=== PATIENT | male | born 1950 | race Caucasian/White ===

== ENCOUNTER → 2020-03-27 10:57 | Outpatient (BNVA) | payer OTHER, SELFPAY | PROVIDERS: Family Provider Family Medicine; Visit Provider Nurse Practitioner Family | DX: M25.511 Pain in right shoulder (principal) | CPT/HCPCS: 73030 ==

== ENCOUNTER 2020-08-02 17:19 | Emergency (ER) | payer OTHER, SELFPAY ==
[2020-08-02] VITALS (9 sets, daily range): BP systolic 147–176; BP diastolic 79–101; PULSE 70–78; RESP 16–20; TEMP 36.9–37.2; O2SAT 94–97; BMI 33.2
--- NOTE | 2020-08-02 18:08 | XR_ITS ---
WS: [id number] Exam: XR chest 1V portable [id number] Date/Time of Exam: 08/02/2020 6:11 PM Reason For Exam: cp No priors. The lungs are clear and fully inflated. Normal cardiomediastinal structures. No pleural effusions. De generative changes of both shoulders. XR/XR chest 1V portable [id number] IMPRESSION: 1. No acute cardiopulmonary finding.
--- NOTE | 2020-08-02 18:21 | W.ED.COVID ---
HPI - COVID General: Chief Complaint: Infusion: Covid [facility] Stated Complaint: covid +/phy ref for infusion Time Seen by Provider: 08/02/20 17:51 Source: patient Mode of arrival: ambulatory Limitations: no limitations Triage information: No fever, cough or shortness of breath. Exposure to COVID + person last 14 days History of Present Illness: HPI Narrative: 70-year-old male who states that he had cough along with fever and body aches and tested positive for Covid today. [facility]. He denies any dyspnea currently and is well-appearing here. Denies any worsening improving factors. COVID 19 common symptoms: positive fever(s), non-productive cough and body aches; negative headache(s), throat pain, nausea, vomiting or diarrhea COVID 19 other sytmptoms: negative chest pain COVID Results: No Data to Display Review of Systems Const: Reports: fever(s) and body aches Eyes: Denies: blurry vision or eye discomfort ENMT: Denies: throat pain or dental pain Card: Denies: chest pain Resp: Reports: non-productive cough GI: Denies: abdominal pain, nausea, vomiting or diarrhea : Denies: dysuria Musc: Denies: neck pain or back pain Skin/Breast: Denies: rash Neuro: Denies: headache(s) Psych: Denies: depression Masoud/Lymph: Denies: easy bruising All/Imm: Denies: urticaria PFSH ED PFSH: Social History (Updated 03/27/20 @ 10:16 by Tiffani Wetzel LPN) Smoking and tobacco status: never smoked Alcohol intake: never Physical Exam Const: COMMON NORMALS: no acute distress, patient oriented x3 and healthy appearing HENMT: COMMON NORMALS: normocephalic and atraumatic HEAD & SCALP: normocephalic and atraumatic Eye: COMMON NORMALS: Equal, round and reactive pupils present and EOMs intact bilaterally PUPIL: Yes Equal, round and reactive pupils present Neck/C-Spine: COMMON NORMALS: full ROM and supple Chest: COMMONS NORMALS: normal inspection of the chest and normal palpation of entire chest wall Resp: COMMON NORMALS: normal respiratory effort, No retractions, No use of accessory muscles and clear to auscultation bilaterally AUSCULTATION: clear to auscultation bilaterally Cardio: COMMON NORMALS: regular rate, regular rhythm and No murmurs present (Cardio) RATE: regular rate RHYTHM: regular rhythm GI: COMMON NORMALS: Normal to inspection, nondistended, normoactive bowel sounds present, Soft to palpation, non-tender and no masses PALPATION: Yes Soft to palpation Extremity: COMMON NORMALS: normal to inspection and full ROM Neuro: COMMON NORMALS: patient oriented x3, moves all extremities and no focal motor deficits Psych: COMMON NORMALS: mental status grossly normal, Normal thought process present and cooperative THOUGHT PROCESS: Normal thought process present Skin: COMMON NORMALS: no rashes or lesions noted and no wounds GENERAL SKIN EXAM: no rashes or lesions noted Course Vital Signs: Vital signs: Vital Signs Temperature 98.4 F 08/02/20 20:18 Pulse Rate 77 08/02/20 20:57 Respiratory Rate 16 08/02/20 20:57 Blood Pressure 176/96 08/02/20 20:57 Pulse Oximetry 95 08/02/20 20:57 MDM - COVID MDM Narrative: Medical decision making narrative: Joseph presents here with Covid does meet criteria for bam infusion. His chest x-ray here is negative and he is not in respiratory distress. Patient given the bam infusion and is stable for discharge. He is to return if worsening. He understands and agrees to plan. COVID Results: No Data to Display Monoclonal Antibody Treatments Inclusion/Exclusion Criteria + direct Sars-Cov-2 test less than 7-10 days ago age >/= 65 Discharge Plan Discharge Patient Disposition: Home Clinical Impression: COVID-19 Condition: Stable Prescriptions: No Action tamsulosin 0.4 mg capsule 0.4 mg PO DAILY@1999 RF: 0 valproic acid 250 mg capsule 250 mg PO BID RF: 0 lisinopril 40 mg tablet 40 mg PO DAILY@1999 RF: 0 cetirizine 10 mg tablet 5 mg PO DAILY PRN (Reason: Allergy Symptoms) RF: 0 finasteride 5 mg tablet 5 mg PO DAILY@1999 RF: 0 montelukast 10 mg tablet 10 mg PO DAILY@1999 RF: 0 atorvastatin 40 mg tablet 40 mg PO DAILY@1999 RF: 0 Discharge Orders: Discharge ED (Routine); Ordered 08/02/20 Ordered By: Shashank Palmer Referrals: Mirza Cottrell [Primary Care Provider] - 1-3 days Discharge Diet: Advance as tolerated Discharge Activity: Resume usual activity Patient Instructions: Upper Respiratory Infection (ED) Coding Level of Care Code ED Navigation Teacher for Temi Fwd Exam Comprehensive
--- NOTE | 2020-08-07 16:01 | DCPLANNER ---
Addendum entered by Mary Thibodeaux 08/14/20 15:58: educational manager called to check on patient 10 days after receiving the infusion. Patient stated that he was doing just fine, and that he has not been admitted to hospital. Addendum entered by Mary Thibodeaux 08/09/20 15:57: educational manager called to check on patient after receiving the BAM infusion. Patient stated that he is feeling good, no fever, no cough, no shortness of breath. Patient stated that he is feeling good. Original Note: educational manager had message that patient received the BAM infusion. educational manager called to check on patient after receiving the BAM. Patient stated that he tolorated the infusion well. That before the infusion that he had a really bad headache, a little cough, and was short of breath. After the infusion, he is feeling great, that he does not have a cough, he is no longer short of breath. [facility] and that [facility] has [facility]ologist in [facility] that he sees and has been in contact with him. Patient stated that he would make follow ups as needed.
== END 2020-08-02 21:13 | disposition home or self-care (01) ==
PROVIDERS: Emergency Provider Emergency Medicine; PCP Family Medicine
DX: U07.1 COVID-19 (principal)
CPT/HCPCS: 12345; 71045; 96365; 99281; 99283; J7050

== ENCOUNTER 2021-01-30 08:04 | Outpatient (CLI) | payer OTHER, SELFPAY ==
--- NOTE | 2021-01-30 08:12 | CT_ITS ---
WS: [id number] CT ABDOMEN AND PELVIS WITH CONTRAST HISTORY: ABDOMINAL SWELLING /PAIN TECHNIQUE: Imaging performed of the abdomen and pelvis with IV contrast. Single phase imaging of the abdomen. Coronal and sagittal reformats are submitted. All CT scans at [facility] use at least one of these dose optimization techniques: automated exposure control; mA and/or kV adjustment per patient size (includes targeted exams where dose is matched to clinical indication); or iterativ e reconstruction. IV CONTRAST: Visipaque 320; 95 mL IV. Oral contrast: Yes. DLP: 894.87 mGy-cm. COMPARISON: None available. Lower thorax: Lung bases are clear. Heart is normal size. No hiatal hernia. Liver/biliary system: Normal size with no intrahepatic dilatation. Gallbladder: Status post cholecystectomy. Pancreas: Normal size pancreas and pancreatic duct. No adjacent inflammation. Spleen: Prior splenectomy. There is a rounded mass in the LEFT upper quadrant measuring 3.8 cm in brissa meter. This is probably a splenule. Adrenal glands: Normal RIGHT adrenal gland. LEFT adrenal gland is not visualized and may have been florez rgically removed. Right kidney: Nonobstructing 2 mm calcification in the mid kidney. Left kidney: Prior nephrectomy. No recurrent mass at the renal bed. Aorta: Mild atherosclerosis with no aneurysm. Lymphadenopathy: There are a few small mesenteric lymph nodes. There are indeterminate lymph nodes in the pelvis. Largest lymph node measures 12 mm along the RIGHT external iliac artery. There are addit ional smaller lymph nodes bilaterally along the iliac chains. No prior studies to evaluate for stabil ity or progression. Free fluid: None. GI tract: The appendix is normal. No GI tract obstruction. Numerous diverticula in the sigmoid colon . No evidence for acute diverticulitis. Abdominal wall: There are numerous surgical clips remaining in the anterior abdominal wall at the lev el of the liver and also along the LEFT anterior abdominal wall and lateral. No recurrent mass or sof t tissue abnormality is noted. There is some very mild soft tissue thickening. No recurrent mass, abs cess or hernia. Pelvis: No free fluid in the pelvis. Urinary bladder is small caliber. Bones: Osteopenia. Moderate spondylosis in the lumbar spine. No osteoblastic or osteolytic bone disea se. CT/CT abdomen pelvis w con* [id number] IMPRESSION: 1. Status post splenectomy and LEFT nephrectomy. 2. Postsurgical clips are noted along the anterior and LEFT lateral abdominal wall. No recurrent mass identified. 3. Indeterminate pelvic lymph nodes. Metastatic disease is a possibility. The largest lymph node along the RIGHT external iliac artery is 12 mm. No prior bunny dies for comparison to evaluate for progression or stability. 4. Sigmoid diverticulosis without acute diverticulitis.
[2021-01-30] MEDS: iohexol 300 mg/mL 50 mL Btl PO (08:31)
[2021-01-30] MEDS: iodixanol 320 mg/mL 100mL Btl IV (09:59)
== END 2021-01-30 08:05 | disposition home or self-care (01) ==
LOC: RADWPI 08:05
PROVIDERS: PCP Family Medicine; Visit Provider Family Medicine
DX: R19.00 Intra-abdominal and pelvic swelling, mass and lump, unspecified site (principal); R10.9 Unspecified abdominal pain; K57.30 Diverticulosis of large intestine without perforation or abscess without bleeding; Z90.81 Acquired absence of spleen; Z90.5 Acquired absence of kidney
CPT/HCPCS: 74177; Q9967

== ENCOUNTER 2022-11-26 11:52 | Emergency (ER) | payer OTHER, SELFPAY ==
[2022-11-26 11:56] VITALS: BP 111/81; PULSE 87; RESP 16; TEMP 36.7; O2SAT 100
--- NOTE | 2022-11-26 12:04 | W.ED.WEAKNES ---
HPI - Weakness General: Chief complaint: Weakness Stated complaint: HYPOTENSION Time Seen by Provider: 11/26/22 11:53 Source: patient and EMS Mode of arrival: EMS Limitations: no limitations History of Present Illness: This patient was transported to emergency department from the local [place] clinic. History is obtained both from the EMS providers as well as the patient. He states that he was at the [facility] today for routine visit and apparently they noted his blood pressure seem to be low at the time of his intake and they called EMS. EMS arrived and assessed him and transported him to the emergency department. They state while he was in their care his blood pressure was never less than 100 systolic. The report they received from the [place] clinic was that his blood pressure was in the 60 systolic range. Patient states he has been feeling more tired and fatigued over the past 2 to 3 weeks but just had a procedure done at [facility] on 29 October. He had his eye cystectomy as well as a prostatectomy with a ileal ureteral conduit placed because of an controlled bladder cancer. He states he also had a right great toe that had an area of darkness to it that at the time of his surgery was attributed to likely either pressure and/or some other intraoperative vascular compromise. He states that area has significantly improved since he has been home and it does not cause him any pain or discomfort. He has no history of vascular disease as he is aware. He states that he has been eating fairly regularly he is not having a great appetite but he states that he does drink fluids and eat on a daily basis. He states he is urine output is been good and his stools have been normal for him. He denies any fevers chills chest pain etc. Has no history of cardiovascular disease. He takes his usual medications and is took taken them all this morning without difficulty. He states he did drink some fluids and eat a small amount of Ensure this morning. He denies any known exposure to infectious disease. His only other abdominal surgery was a cholecystectomy. MD Complaint: generalized weakness and lack of energy Associated symptoms: Denies chest pain, chills, melena, easy bruising, fever(s), headache(s), nausea, syncope or vomiting Review of Systems Const: Reports: fatigue; Denies: fever(s), chills or body aches Eyes: Denies: change in vision ENMT: Denies: throat pain, odynophagia or nasal congestion Card: Denies: chest pain, palpitations, irregular heart rhythm, syncope or pre-syncope Resp: Denies: dyspnea, productive cough or non-productive cough GI: Denies: abdominal pain, nausea, vomiting, hematemesis, hematochezia or melena Musc: Denies: neck pain, back pain, extremity pain or extremity swelling Skin/Breast: Reports: non-healing lesions; Denies: rash, pruritus, erythema or photosensitivity Neuro: Denies: headache(s), numbness in extremities or weakness in extremities Masoud/Lymph: Denies: easy bruising or easy bleeding PFSH ED PFSH: Social History (Updated 03/27/20 @ 10:16 by Tiffani Wetzel LPN) Smoking and tobacco status: never smoked Alcohol intake: never Substance/Drug Use: never Physical Exam Narrative: EXAM NARRATIVE: The patient oriented makes good eye contact speech is goal-directed. He answers questions appropriately. Const: COMMON NORMALS: no acute distress, average body habitus, patient oriented x3, healthy appearing and alert ORIENTATION/CONSCIOUSNESS: Yes awake HENMT: COMMON NORMALS: normocephalic, atraumatic, Normal nasal mucous membranes and turbinates present, moist oral mucous membranes and oropharynx normal HEAD & SCALP: normocephalic and atraumatic NOSE: Normal nasal mucous membranes and turbinates present Eye: COMMON NORMALS: Equal, round and reactive pupils present, EOMs intact bilaterally and conjunctivae normal CONJUNCTIVA: Yes conjunctivae normal PUPIL: Yes Equal, round and reactive pupils present Neck/C-Spine: COMMON NORMALS: full ROM, no lymphadenopathy, no JVD, Thyroid normal and No carotid bruits THYROID: Thyroid normal Chest: COMMONS NORMALS: normal inspection of the chest and normal palpation of entire chest wall Resp: COMMON NORMALS: normal respiratory effort, No retractions, No use of accessory muscles and clear to auscultation bilaterally EFFORT & INSPECTION: Yes able to speak in complete sentences AUSCULTATION: clear to auscultation bilaterally Cardio: COMMON NORMALS: no JVD, regular rate, regular rhythm, No murmurs present (Cardio) and Peripheral pulses 2+ throughout RATE: regular rate RHYTHM: regular rhythm PERIPHERAL PULSES: Peripheral pulses 2+ throughout GI: COMMON NORMALS: Normal to inspection, nondistended, normoactive bowel sounds present, Soft to palpation and non-tender PALPATION: Yes Soft to palpation OTHER: He has a stoma visible through the skin which appears to be mature without any redness drainage etc. It is draining clear yellow urine into a collection bag. : COMMON NORMALS: Yes no CVA tenderness BLADDER/KIDNEY EXAM: Yes no CVA tenderness Back/Pelvis: COMMON NORMALS: no CVA tenderness, thoracic and lumbar spine normal to inspection and no thoracic nor lumbar tenderness Extremity: COMMON NORMALS: normal to inspection, no joint enlargement, no calf tenderness and no pedal edema Neuro: KOMAL COMA SCALE: document GCS findings COMMON NORMALS: patient oriented x3, moves all extremities, no focal motor deficits and no sensory deficits noted SENSORIUM/ORIENTATION: Yes alert Psych: COMMON NORMALS: mental status grossly normal Skin: NARRATIVE SKIN EXAM: He has an area measuring approximately 2 cm x 1 cm at the tip of his right great toe which is somewhat darkened in appearance there is no surrounding erythema. There is no drainage. There is no proximal redness. Course Reevaluation(s): Reevaluation #1: Patient clinically stable vital signs are reassuring. Family is now present I discussed current findings with the patient and family members including his spouse. They confirm that his fluid intake is not been optimal. Time: 15:04 Reevaluation #2: Patient is drinking fluids well. His blood pressure has been very reassuring the entire emergency department stay. Again no findings today that would suggest a ongoing emergency medical condition such as sepsis etc. He has not displayed any signs of hypotension, other concerning findings while in the emergency department. His case was reviewed with his consulting urologist in [place] at [facility] who agreed with no aggressive treatment of urinary sediment unless he displayed signs of infection. I reviewed all the findings with the patient as well as with his family. I adamantly reinforced the need for continued oral hydration at home. He is stable at this time to be discharged home with good return return precautions. All questions were answered and they were appreciative of care. Time: 16:38 Consultations: Consultation #1: Discussed with the urology consultants at [facility] who are completed his procedure last month. We reviewed his current findings. They supported the notion that his urine sediment will always have significant findings and that he should not be treated for the urinalysis but only if he displays any systemic symptoms. Time: 16:04 Vital Signs: Vital signs: Vital Signs Temperature 98.0 F 11/26/22 11:56 Pulse Rate 83 11/26/22 16:32 Respiratory Rate 16 11/26/22 11:56 Blood Pressure 130/79 11/26/22 16:32 Pulse Oximetry 99 11/26/22 16:32 Oxygen Delivery Me thod Room Air 11/26/22 16:32 MDM - Weakness Medical Decision Making This patient presented to the emergency department because of concerns about low blood pressure found at the [place] clinic. Subsequent readings by EMS as well as in the emergency department here did not confirm any evidence of hypotension. He was evaluated clinically and found to have no clinical stigmata suggestive of worrisome clinical condition as evidenced by lack of temperature elevation, tachycardia, hypertension or other clinical findings. Laboratories were obtained which did reveal evidence of volume depletion. He subsequently received IV hydration and oral hydration while in the emergency department. His urinary sediment was abnormal and after consulting with urology that was confirmed that this was not indicative of of a primary infection unless it was associated with other clinical findings. He was remained in an observatory status in the emergency department for period of time in which his work-up and results were undertaken and reviewed. He continued to orally hydrate as well. He is stable at this time without any evidence of an ongoing emergency medical condition is certainly suitable for discharge. We also reviewed return precautions. Medical Records I reviewed the patient's medical records. Lab Data I reviewed the patient's lab results. 11/26/22 12:04 11/26/22 12:04 Laboratory Results WBC 13.0 10^3/uL (4.0-10.0) H 11/26/22 12:04 RBC 4.06 10^6/uL (4.1-5.3) L 11/26/22 12:04 Hgb 12.4 g/dL (11.7-16.6) 11/26/22 12:04 Hct 39.0 % (42.0-52.0) L 11/26/22 12:04 MCV 96.1 fl (80-94) H 11/26/22 12:04 MCH 30.5 pg (28.0-34.0) 11/26/22 12:04 MCHC 31.8 g/dL (30.0-36.0) 11/26/22 12:04 RDW 14.2 % (12.1-15.1) 11/26/22 12:04 Plt Count 481 10^3/cmm (130-400) H 11/26/22 12:04 MPV 9.9 fL (7.4-10.4) 11/26/22 12:04 Neut % (Auto) 43.9 % 11/26/22 12:04 Lymph % (Auto) 41.5 % 11/26/22 12:04 [place] % (Auto) 10.7 % 11/26/22 12:04 Eos % (Auto) 1.8 % 11/26/22 12:04 Baso % (Auto) 0.5 % 11/26/22 12:04 Neut # (Auto) 5.69 10^3/uL (1.8-7.7) 11/26/22 12:04 Lymph # (Auto) 5.4 10^3/uL (0.8-4.8) H 11/26/22 12:04 [place] # (Auto) 1.4 10^3/uL (0.2-0.9) H 11/26/22 12:04 Eos # (Auto) 0.2 10^3/uL (0.0-0.8) 11/26/22 12:04 Baso # (Auto) 0.1 10^3/uL (0.0-0.1) 11/26/22 12:04 Nucleated RBC % (auto) 0 % 11/26/22 12:04 Nucleated RBCs # 0.0 /100WBC 11/26/22 12:04 Sodium 138 mmol/L (136-145) 11/26/22 12:04 Potassium 4.4 mmol/L (3.5-5.1) 11/26/22 12:04 Chloride 107 mmol/L (98-107) 11/26/22 12:04 Carbon Dioxide 16 mmol/L (22-29) L 11/26/22 12:04 Anion Gap 19.4 (5-19) H 11/26/22 12:04 BUN 59 mg/dL (8-23) H 11/26/22 12:04 Creatinine 1.2 mg/dL (0.7-1.2) 11/26/22 12:04 GFR Calculation Not Reportable 11/26/22 12:04 Glucose 103 mg/dL (65-115) 11/26/22 12:04 Calculated Osmolality 303 mOsm/kg (285-295) H 11/26/22 12:04 Calcium 9.6 mg/dL (8.5-10.5) 11/26/22 12:04 Total Bilirubin 0.2 mg/dL (0.15-1.2) 11/26/22 12:04 AST 22 U/L (0-40) 11/26/22 12:04 ALT 22 U/L (0-41) 11/26/22 12:04 Alkaline Phosphatase 121 U/L (40-130) 11/26/22 12:04 Total Protein 8.8 g/dL (6.6-8.7) H 11/26/22 12:04 Albumin 3.5 g/dL (3.5-5.2) 11/26/22 12:04 Globulin 5.3 g/dL (1.3-4.6) H 11/26/22 12:04 Urine Color Yellow (Yellow) 11/26/22 12:30 Urine Appearance Sl hazy (CLEAR) A 11/26/22 12:30 Urine pH 7 (5-7) 11/26/22 12:30 Ur Specific [place] 1.005 (1.005-1.030) 11/26/22 12:30 Urine Protein Trace (Negative) 11/26/22 12:30 Urine Glucose (UA) Norm (Normal) 11/26/22 12:30 Urine Ketones Negative (Negative) 11/26/22 12:30 Urine Blood 2+ (Negative) H 11/26/22 12:30 Urine Nitrate Negative (Negative) 11/26/22 12:30 Urine Bilirubin Neg (Negative) 11/26/22 12:30 Urine Urobilinogen Neg mg/dL (Negative) 11/26/22 12:30 Ur Leukocyte Esterase 2+ (Negative) H 11/26/22 12:30 Urine RBC 5-10 /hpf (0-2) H 11/26/22 12:30 Urine WBC 80-100 /hpf (0-5) H 11/26/22 12:30 Ur Squamous Epith Cells 0-4 /hpf (0-5) H 11/26/22 12:30 Amorphous Sediment Not Reportable 11/26/22 12:30 Urine Bacteria 2+ /hpf (NONE) H 11/26/22 12:30 Urine Mucus Trace /hpf 11/26/22 12:30 Urine Yeast 3+ /hpf H 11/26/22 12:30 EKG Data EKG 1: I personally reviewed and interpreted this EKG as follows: Interpretation: Contemporaneous review of the resting EKG reveals ventricular rate of 83 bpm. Normal CO interval, QRS duration, axis. No acute ST-T wave changes noted. Discharge Plan Discharge Patient Disposition: Home Clinical Impression: Volume depletion, Status post ileal conduit Condition: Stable Prescriptions: No Action tamsulosin 0.4 mg capsule 0.4 mg PO DAILY@1999 valproic acid 250 mg capsule 500 mg PO BID lisinopril 40 mg tablet 20 mg PO DAILY@1999 cetirizine 10 mg tablet 5 mg PO DAILY PRN (Reason: Allergy Symptoms) montelukast 10 mg tablet 10 mg PO DAILY@1999 atorvastatin 40 mg tablet 40 mg PO DAILY@1999 Depakote ER 250 mg Tablet Extended Release 24 Hr 250 mg PO BID [id number] mg Capsule 1 cap PO Q6H PRN (Reason: Migraine Headache) Discharge Orders: Discharge ED (Routine); Ordered 11/26/22 Ordered By: Pankaj Jordan Referrals: Mirza Cottrell [Primary Care Provider] - Discharge Diet: Advance as tolerated Discharge Activity: Increase activity as tolerated Patient Instructions: Opioid Safety, Pain Management Activity Restrictions/Additional Instructions: As we discussed you had evidence that you had not been drinking enough water. It is important you drink at least 2 quarts of water a day in addition to your other fluid intake. Continue with increasing and advancing her diet. We recommend high-calorie protein shakes and other quality forms of calories. If you develop fever, inability to eat and drink, lightheadedness, low blood pressure or other concerning symptoms of any kind return to this emergency department immediately. Otherwise follow-up with your urologist in [place] as previously scheduled. Coding Level of Care Code ED Equipment Tester for Temi Massey
--- NOTE | 2022-11-26 12:17 | ECG_ITS ---
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 Measurements Intervals [place] Rate: 83 P: 22 NE: 164 QRS: 32 QRSD: 91 T: 50 QT: 326 QTc: 385 Interpretive Statements SINUS RHYTHM No previous ECG available for comparison Electronically Signed On 11-26-2022 16:27:53 CDT by Cal Ricci M.D. [email or web address]
[2022-11-26 12:20] LABS: Basophils # 0.1 10^3/uL (0.0-0.1); Basophils % 0.5 %; Eosinophils # 0.2 10^3/uL (0.0-0.8); Eosinophils % 1.8 %; Hemoglobin 12.4 g/dL (11.7-16.6); Lymphocytes # 5.4 10^3/uL (0.8-4.8); Lymphocytes % 41.5 %; Mean Corpuscular HGB Conc 31.8 g/dL (30.0-36.0); Mean Corpuscular Hemoglobin 30.5 pg (28.0-34.0); Mean Corpuscular Volume 96.1 fl (80-94); Mean Platelet Volume 9.9 fL (7.4-10.4); Monocytes # 1.4 10^3/uL (0.2-0.9); Monocytes % 10.7 %; Neutrophils # 5.69 10^3/uL (1.8-7.7); Neutrophils % 43.9 %; Nucleated Red Blood Cells % 0 %; Platelet Count 481 10^3/cmm (130-400); Red Blood Count 4.06 10^6/uL (4.1-5.3); Red Cell Distribution Width 14.2 % (12.1-15.1)
[2022-11-26 12:41] LABS: Alanine Aminotransferase 22 U/L (0-41); Albumin Level 3.5 g/dL (3.5-5.2); Alkaline Phosphatase 121 U/L (40-130); Anion Gap 19.4 (5-19); Aspartate Amino Transferase 22 U/L (0-40); Blood Urea Nitrogen 59 mg/dL (8-23); Calcium 9.6 mg/dL (8.5-10.5); Carbon Dioxide 16 mmol/L (22-29); Chloride 107 mmol/L (98-107); Globulin 5.3 g/dL (1.3-4.6); Glucose 103 mg/dL (65-115); Osmolality Calculated 303 mOsm/kg (285-295); Potassium 4.4 mmol/L (3.5-5.1); Sodium 138 mmol/L (136-145); Total Bilirubin 0.2 mg/dL (0.15-1.2); Total Protein 8.8 g/dL (6.6-8.7)
[2022-11-26 13:02] VITALS: BP 113/81; PULSE 82; O2SAT 98
[2022-11-26 13:03] LABS: Add Urine Microscopic? YES; Bilirubin Urine Neg (Negative); Blood Urine 2+ (Negative); Glucose Urine UA Norm (Normal); Ketones Urine Negative (Negative); Leukocyte Esterase Urine 2+ (Negative); Nitrate Urine Negative (Negative); Protein Urine Trace (Negative); Specific Gravity, Urine 1.005 (1.005-1.030); Urine Appearance SL Hazy (CLEAR); Urine Color Yellow (Yellow); Urobilinogen Urine Neg (Negative); pH Urine 7 (5-7)
[2022-11-26 13:04] LABS: Bacteria Urine 2+ /hpf; Mucus Urine TRACE /hpf; Squamous Epithelial Cell Urine 0-4 /hpf (0-5); WBC Urine 80-100 /hpf (0-5)
[2022-11-26 13:13] LABS: Slide Review Slide Review Perform
[2022-11-26] MEDS: sodium chloride 0.9% 1,000 ML 999 ML IV (14:23)
[2022-11-26] MEDS: cefTRIAXone 2,000 MG in sodium chloride 0.9% (plus) 50 ML 100 MG IV (14:24)
[2022-11-26 14:33] VITALS: BP 125/75; PULSE 76; O2SAT 99
[2022-11-26 16:32] VITALS: BP 130/79; PULSE 83; O2SAT 99
== END 2022-11-26 16:54 | disposition home or self-care (01) ==
PROVIDERS: Emergency Provider Emergency Medicine; PCP Family Medicine
DX: E86.9 Volume depletion, unspecified (principal); Z98.890 Other specified postprocedural states
CPT/HCPCS: 36415; 80053; 81001; 85025; 93005; 96374; 99284; J0696; J7030

== ENCOUNTER → 2023-06-05 12:23 | Outpatient (BNVA) | payer OTHER, SELFPAY | PROVIDERS: PCP Family Medicine; Referring Provider Family Medicine; Visit Provider Podiatrist Foot & Ankle Surgery | DX: L60.8 Other nail disorders (principal) | CPT/HCPCS: 99203 ==

== ENCOUNTER → 2023-07-09 08:36 | Outpatient (BNVA) | payer OTHER, SELFPAY | PROVIDERS: PCP Family Medicine; Visit Provider Podiatrist Foot & Ankle Surgery | DX: L60.8 Other nail disorders (principal); L60.0 Ingrowing nail | CPT/HCPCS: 11750 ==

== ENCOUNTER → 2023-07-23 08:32 | Outpatient (BNVA) | payer OTHER, SELFPAY | PROVIDERS: PCP Family Medicine; Referring Provider Family Medicine; Visit Provider Podiatrist Foot & Ankle Surgery | DX: L60.0 Ingrowing nail (principal) | CPT/HCPCS: 99213 ==

== ENCOUNTER 2025-03-10 10:59 | Observation (INO) | payer OTHER, SELFPAY ==
--- OUTSIDE RECORDS SUMMARY | 2024-01-23 04:00 | XMS_ITS ---
Author Organization [facility] Address [address] [place] [address] Care Team Providers Care Day Porter Name Role Phone Berny GONSALEZ Primary Care Provider Unavailab Rip Dinh Unavailable [phone] Bandar Acosta Unavailable Unavailable Migration, Provider Unavailable Unavailable REASON FOR VISIT EMR-Adriel Encounters Encounter Location Date Provider Diagnosis Migrated_Facility 0 0 01/23/2024 Provider Migration Plan Of Treatment Medication Medication Name Sig Start Date Stop Date Notes Sulfamethoxazole-Trimethopri m 800-160 MG Tablet Oral 01/21/2022 01/22/2022 diazePAM 10 MG Tablet Oral 06/07/2020 06/08/2020 Nitrofurantoin Macrocrystal 100 MG Capsule Oral 04/02/2021 04/03/2021 solifenacin succinate 10 MG Oral Tablet [Vesicare] ORAL 05/15/2021 06/14/2021 *Reorder from [facility] for eRx and Interaction Alerts* Finasteride 5 MG Tablet Oral 04/26/2021 Ciprofloxacin HCl 500 MG Tablet Oral 01/04/2019 06/0 01/2019 Atorvastatin Calcium 10 MG Tablet Oral 04/26/2021 Progress Notes * Joseph ROTH DDOB:[birth year] (75 yo M)Acc No.[id number]:01/23/2024 Patient: Joseph KEANE :1950 A ge:73 Y S ex:Male Address:[address] [place] [address] [address], [place] [address] * Refills Stop Atorvastatin Calcium Tablet, 10 MG, Oral Stop Ciprofloxacin HCl Tablet, 500 MG, Oral Stop diazePAM Tablet, 10 MG, Oral Stop Finasteride Tablet, 5 MG, Oral Stop Nitrofurantoin Macrocrystal Capsule, 100 MG, Oral Stop Nitrofurantoin Macrocrystal Capsule, 100 MG, Oral Stop Nitrofurantoin Macrocrystal Capsule, 100 MG, Oral Stop Sulfamethoxazole-Trimethoprim Tablet, 800-160 MG, Oral Stop Sulfamethoxazole-Trimethoprim Tablet, 800-160 MG, Oral Stop Sulfamethoxazole-Trimethoprim Tablet, 800-160 MG, Oral Stop Sulfamethoxazole-Trimethoprim Tablet, 800-160 MG, Oral Stop Sulfamethoxazole-Trimethoprim Tablet, 800-160 MG, Oral Stop Sulfamethoxazole-Trimethoprim Tablet, 800-160 MG, Oral Stop Sulfamethoxazole-Trimethoprim Tablet, 800-160 MG, Oral Stop solifenacin succinate 10 MG Oral Tablet [Vesicare], ORAL Subjective: * Chief Complaints: * E Jason * * Date:
--- OUTSIDE RECORDS SUMMARY | 2024-01-24 04:00 | XMS_ITS ---
Author Organization [facility] Address [address] [place] [address] Care Team Providers Care Clinical Research Tech Name Role Phone Berny GONSALEZ Primary Care Provider Unavailab Rip Dinh Unavailable [phone] Bandar Acosta Unavailable Unavailable Migration, Provider Unavailable Unavailable Allergies Allergen (clinical drug ingredient) Drug/Non Drug Allergy documented on EMR Reaction Allergy Type Onset Date Status bee pollen Bee Pollen Unknown Drug Allergy 04/26/2021 acti ve simvastatin Simvastatin Unknown Drug Allergy 04/26/2021 ac tive codeine Codeine Unknown Drug Allergy Active morphine Morphine Unknown Drug Allergy Active REASON FOR VISIT EMR-Adriel Medications Medication SIG (Take, Route, Frequency, Duration) Notes Start Date End Date Status fluticasone furoate 0.0275 MG/ACTUAT Metered Dose Nasal [place] *Reorder from [facility] for eRx and Interaction Alerts* 04/26/2021 Active 1 ML Epinephrine 1 MG/ML Injection *Reorder from [facility] for eRx and Interaction Alerts* 04/26/2021 Active traMADol HCl 50 MG Tablet Oral 05/21/2021 05/28/2021 Active Tamsulosin HCl 0.4 MG Capsule Oral 04/26/2021 Active Montelukast Sodium 4 MG Tablet Chewable Oral 04/26/2021 Active solifenacin succinate 10 MG Oral Tablet [Vesicare] ORAL *Reorder from [facility] for eRx and Interaction Alerts* 05/21/2021 06/20/2021 Active Valproic Acid 250 MG Oral Capsule ORAL *Reorder from [facility] for eRx and Interaction Alerts* 04/26/2021 Active Acetaminophen 325 MG / butalbital 50 MG / Caffeine 40 MG Oral Tablet ORAL *Reorder from [facility] for eRx and Interaction Alerts* 04/26/2021 Active Lisinopril 40 MG Oral Tablet ORAL *Reorder from [facility] for eRx and Interaction Alerts* 04/26/2021 Active Docusate Sodium 100 MG Oral Tablet ORAL *Reorder from [facility] for eRx and Interaction Alerts* 05/21/2021 Active Social History Social History Additional Details Category Social Info Options Details Migrated Social History Migrated Social History History of tobacco use : , Smoking Status : Never used tobacco Encounters Encounter Location Date Provider Diagnosis Migrated_Facility 0 0 01/24/2024 Provider Migration Plan Of Treatment No Information Progress Notes * Joseph ROTH DDOB:[birth year] (75 yo M)Acc No.[id number]:01/24/2024 Patient: Joseph KEANE :1950 A ge:73 Y S ex:Male Address:[address] [place] [id number] Subjective: * Chief Complaints: * E MR-Adriel * Social History: M igrated Social History: M igrated Social History: History of tobacco use : , Smoking Status : Never used tobacco. * Medications: T akingMontelukast Sodium 4 MG Tablet Chewable Oral Tamsulosin HCl 0.4 MG Capsule Oral traMADol HCl 50 MG Tablet Oral , stop date ML Epinephrine 1 MG/ML Injection , Notes to Pharmacist: *Reorder from [facility] for eRx and Interaction Alerts*fluticasone furoate 0.0275 MG/ACTUAT Metered Dose Nasal [place] , Notes to Pharmacist: *Reorder from [facility] for eRx and Interaction Alerts*Acetaminophen 325 MG / butalbital 50 MG / Caffeine 40 MG Oral Tablet ORAL , Notes to Pharmacist: *Reorder from [facility] for eRx and Interaction Alerts*Valproic Acid 250 MG Oral Capsule ORAL , Notes to Pharmacist: *Reorder from [facility] for eRx and Interaction Alerts*Docusate Sodium 100 MG Oral Tablet ORAL , Notes to Pharmacist: *Reorder from [facility] for eRx and Interaction Alerts*Lisinopril 40 MG Oral Tablet ORAL , Notes to Pharmacist: *Reorder from [facility] for eRx and Interaction Alerts*solifenacin succinate 10 MG Oral Tablet [Vesicare] ORAL , stop date 06/20/2021, Notes to Pharmacist: *Reorder from [facility] for eRx and Interaction Alerts*Taking Montelukast Sodium 4 MG Tablet Chewable Oral Taking Tamsulosin HCl 0.4 MG Capsule Oral Taking traMADol HCl 50 MG Tablet Oral , stop date 05/28/2021Taking 1 ML Epinephrine 1 MG/ML Injection , Notes to Pharmacist: *Reorder from [facility] for eRx and Interaction Alerts*Taking fluticasone furoate 0.0275 MG/ACTUAT Metered Dose Nasal [place] , Notes to Pharmacist: *Reorder from [facility] for eRx and Interaction Alerts*Taking Acetaminophen 325 MG / butalbital 50 MG / Caffeine 40 MG Oral Tablet ORAL , Notes to Pharmacist: *Reorder from [facility] for eRx and Interaction Alerts*Taking Valproic Acid 250 MG Oral Capsule ORAL , Notes to Pharmacist: *Reorder from [facility] for eRx and Interaction Alerts*Taking Docusate Sodium 100 MG Oral Tablet ORAL , Notes to Pharmacist: *Reorder from [facility] for eRx and Interaction Alerts*Taking Lisinopril 40 MG Oral Tablet ORAL , Notes to Pharmacist: *Reorder from [facility] for eRx and Interaction Alerts*Taking solifenacin succinate 10 MG Oral Tablet [Vesicare] ORAL , stop date 06/20/2021, Notes to Pharmacist: *Reorder from [facility] for eRx and Interaction Alerts* * Allergies: S imvastatin: Allergy - Onset Date 1Bee Pollen: Allergy - Onset Date 1Codeine: AllergyMorphine: Allergy * * Date:
--- OUTSIDE RECORDS SUMMARY | 2024-03-17 04:00 | XMS_ITS | Encounter Summary ---
Author Name [facility] [facility] [place] [facility] [place] [facility] [place] Address [address] [place] [address] Care Team Providers Care Workplace Rehabilitation Officer Name Role Phone TIFFANI SOTELO Primary Care Provider Unavailabl e Insurance Providers: All historical and current Section Date Range: From patient's date of to the date document was created. This section includes the names of all active insurance providers for the patient. Insurance Provider Type of Coverage Plan Name Start of Policy Coverage End of Policy Coverage Group Number Member ID Insurance Provider's Telephone Number Policy Tadeo's Name Patient's Relationship to Policy Tadeo MEDICARE (WNR) MEDICARE (M) PART A Jan 31, 2015 PART A [id number] [phone] SHEREE NORMAN PATIENT MEDICARE (WNR) MEDICARE (M) PART A Jan 31, 2015 PART A [id number] SHEREE NORMAN PATIENT Selected Encounter This section includes the information on record at [place] for the Encounter. Date/Time Encounter Type Encounter Description Reason Provider Source Mar 17, 2024 09:00 AM OFFICE O/P EST MOD 30 MIN PRIMARY CARE/MEDICINE ICD-10-CM I10 Essential (primary) hypertension GENESIS SOTELO IHNorma Encounter Template Text not used by [place] Assessments - Encounter Diagnoses This section includes the primary and secondary diagnoses documented for the Encounter. Date/Time Primary/Secondary Diagnosis Diagnosis Name Provider Source Mar 17, 2024 10:02 AM PRIMARY Essential (primary) hypertension [facility] Mar 17, 2024 10:02 AM SECONDARY Allergic rhinitis, unspecified [facility] Mar 17, 2024 10:02 AM SECONDARY Bee allergy status [facility] Mar 17, 2024 10:02 AM SECONDARY Benign prostatic hyperplasia with lower urinary tract symp [facility] Mar 17, 2024 10:02 AM SECONDARY Carcinoma in situ of bladder [facility] Mar 17, 2024 10:02 AM SECONDARY Chronic cluster headache, not intractable [facility] Mar 17, 2024 10:02 AM SECONDARY Hyperlipidemia, unspecified [facility] Mar 17, 2024 10:02 AM SECONDARY Low back pain, unspecified [facility] Mar 17, 2024 10:02 AM SECONDARY Obesity, unspecified [facility] Mar 17, 2024 10:02 AM SECONDARY Pain in right knee [facility] Mar 17, 2024 10:02 AM SECONDARY Polyp of colon [facility] Mar 17, 2024 10:02 AM SECONDARY Sensorineural hearing loss, bilateral [facility] Mar 17, 2024 10:02 AM SECONDARY Tinnitus, bilateral [facility] Mar 17, 2024 10:02 AM SECONDARY Unspecified disorder of vitreous body TIFFANI SOTELO [facility] Plan of Treatment: Future Appointments (+ 6 months) and Future Tests (+/- 45 days) The Plan of Treatment section includes future care activities for the patient from all [place] treatmentfacilities. This section includes future appointments and future orders which are active, pending or scheduled. Future Appointments This section includes appointments that were scheduled to occur 6 months from the date of the Encounter, up to a maximum of 20 appointments. The data comes from all [place] treatment facilities. Appointment Date/Time Appointment Type Appointme nt Facility Name May 20, 2024 09:15 AM AMBULATORY - MEDICINE [facility] Jul 22, 2024 10:00 AM AM[facility] - MEDIC[facility] Lab Results: +/- 30 days of the encounter This section includes the Chemistry and Hematology Lab Results on record with [place] for the patient. Radiology Reports and Pathology Reports are provided separately, in subsequent sections. Lab Results This section contains the Chemistry/Hematology Results that were resulted 30 days before or 30 daysafter the date of the Encounter. Date/Time Source Result Type Result - Unit Interpretation Reference Range Specimen Type Comment Mar 17, 2024 09:21 AM [facility] HGA1C BLOOD Specimen Type: BLOOD No comment entered. Ordering Provider: TIFFANI SOTELO Report Released Date/Time: May 26, 2023 09:40 AM Reporting Lab: [place] [facility] [address] [place] [address] Performing Lab: [place] [facility] [address] [place] [address] HGA1C 6.2 H 4.0-6.0 Mar 17, 2024 09:21 AM [facility] CHOLESTEROL PANEL (PB) PLASMA Specimen Type: P LASMA No comment entered. Ordering Provider: TIFFANI SOTELO Report Released Date/Time: May 26, 2023 09:40 AM Reporting Lab: [place] [facility] [address] [place] [address] Performing Lab: [place] [facility] [address] [place] [address] CHOLESTEROL 161 mg/dL 0-200 TRIGLYCERIDE 131 mg/dL 0-150 CALCULATED LDL 99.1 mg/dL HDL(New) 35.7 mg/dL L >40 HDL % OF TOTAL CHOLESTEROL (PB) 22.2 >25 Mar 17, 2024 09:21 AM [facility] VALPROIC ACID (PB) PLASMA Specimen Type: PLASM A No comment entered. Ordering Provider: TIFFANI SOTELO Report Released Date/Time: May 26, 2023 09:40 AM Reporting Lab: [place] [facility] [address] [place] [address] Performing Lab: [place] [facility] [address] [place] [address] VALPROIC ACID (PB) <12.5 ug/mL L 50-100 Mar 17, 2024 09:21 AM [facility] TSH (MA-PB) SERUM Specimen Typ e: SERUM No comment entered. Ordering Provider: TIFFANI SOTELO Report Released Date/Time: May 26, 2023 09:40 AM Reporting Lab: [place] [facility] [address] [place] [address] Performing Lab: [place] [facility] [address] [place] [address] TSH 0.889 u[IU]/mL 0.47-5 Mar 17, 2024 09:21 AM [facility] CBC BLOOD Specimen Type: BLOOD No comment entered. Ordering Provider: TIFFANI SOTELO Report Released Date/Time: May 26, 2023 09:40 AM Reporting Lab: [place] [facility] [address] [place] [address] Performing Lab: [place] [facility] [address] [place] [address] WBC 8.3 10*3/uL 3.6-11.2 RBC 4.87 10*6/uL 4.10-5.70 HGB 15.0 g/dL 13.1-16.8 HCT 44.7 38.2-48.4 MCV 91.8 fL 80.0-100.0 MCH 30.8 pg 27.0-34.0 MCHC 33.6 g/dL 33.0-36.0 PLT 358 10*3/uL 150-400 MPV 9.8 fL 7.5-11.2 RDW 13.6 11.8-15.1 LYMPHOCYTES, AUTO % 38.2 MONOCYTES, AUTO % 11.8 NEUTROPHILS, AUTO % 45.4 EOSINOPHILS, AUTO % 3.7 BASOPHILS, AUTO % 0.7 LYMPHOCYTES, ABSOLUTE 3.19 10*3/uL 0.77- 4.50 MONOCYTES, ABSOLUTE 0.98 10*3/uL H 0.19-0. 8 NEUTROPHILS, ABSOLUTE 3.78 10*3/uL 2.10- 8.00 EOSINOPHILS, ABSOLUTE 0.31 10*3/uL 0.00- 0.60 BASOPHILS, ABSOLUTE 0.06 10*3/uL 0.00-0. 20 IMMATURE GRANS, AUTO % 0.2 IMMATURE GRANS, AUTO ABS 0.02 10*3/uL 0. 00-0.05 Mar 17, 2024 09:21 AM [facility] VITAMIN D, 25-HYDROXY SERUM Specimen Type: SE RUM No comment entered. Ordering Provider: TIFFANI SOTELO Report Released Date/Time: May 26, 2023 09:40 AM Reporting Lab: [place] [facility] [address] [place] [address] Performing Lab: [place] [facility] [address] [place] [address] VITAMIN D, 25-HYDROXY 34.5 ng/mL 30-96 Mar 17, 2024 09:21 AM [facility] COMPREHENSIVE METABOLIC PANEL PLASMA Specimen Type: PLASMA No comment entered. Ordering Provider: TIFFANI SOTELO Report Released Date/Time: May 26, 2023 09:40 AM Reporting Lab: [place] [facility] [address] [place] [address] Performing Lab: [place] [facility] [address] [place] [address] CREATININE 1.12 mg/dL 0.7-1.3 UREA NITROGEN 24 mg/dL 9-25 GLUCOSE 98 mg/dL 72-99 SODIUM 138 meq/L 136-145 POTASSIUM 4.1 meq/L 3.5-5 CHLORIDE 102 meq/L 98-107 CARBON DIOXIDE 27 meq/L 22-31 CALCIUM 9.1 mg/dL 8.4-10.4 PROTEIN 7.8 g/dL 6-8.6 ALBUMIN 3.7 g/dL 3.4-5 TOTAL BILIRUBIN 0.6 mg/dL 0.2-1.2 ALKALINE PHOSPHATASE 108 U/L 40-150 AST/SGOT 23 U/L 5-34 ALT/SGPT 20 U/L 8-40 EGFR (CKD-EPI 2020) 69 Mar 17, 2024 09:21 AM [facility] PROST. SPECIFIC AG.(PB-STL) SERUM Specimen Ty pe: SERUM No comment entered. Ordering Provider: TIFFANI SOTELO Report Released Date/Time: Mar 17, 2024 01:17 PM Reporting Lab: [place] [facility] [address] [place] [address] Performing Lab: [place] [facility] [address] [place] [address] PROST. SPECIFIC AG.(PB-STL) 0.00 ng/mL 0 -4 Vital Signs: All taken on the encounter date This section contains inpatient and outpatient Vital Signs collected on the date of the Encounter. Date/Time Temperature Pulse Blood Pressure Respiratory Rate SP02 Pain Height Weight Body Mass Index Source Mar 17, 2024 09:15 AM 130/80 [facility] Mar 17, 2024 09:09 AM 146/92 [facility] Mar 17, 2024 09:08 AM 98.4 66 144/84 18 97 0 69.0 239.0 35 [facility] Social History: Smoking Status (Most current) and Tobacco Use (All prior to encounter date) This section includes the most current, and the historical, smoking and tobacco- related health factors from the [place] facility where the Encounter took place. Current Smoking Status This section includes the most current smoking, or tobacco-related health factor, from the [place] facility where the Encounter took place. Date/Time Current Smoking Status Comment Facil ity Mar 17, 2024 09:00 AM VA-TOBACCO NEVER USED [facility] Tobacco Use History This section includes a history of the smoking, or tobacco-related health factors, that were collected on or before the date of the Encounter. The data comes from the [place] facility where the Encounter took place. Date/Time Smoking Status/Tobacco Use Comment F acility Nov 26, 2022 11:00 AM VA-TOBACCO NEVER USED [facility] Jan 03, 2021 01:30 PM VA-TOBACCO FORMER USER [facility] Jan 03, 2021 01:30 PM VA-TOBACCO QUIT 15 YRS OR MORE [facility] Jun 30, 2018 03:38 PM VA-TOBACCO FORMER USER [facility] Jun 30, 2018 03:38 PM VA-TOBACCO QUIT 15 YRS OR MORE [facility] Apr 07, 2018 01:43 PM QUIT TOBACCO >7 YEARS AGO [facility] Jul 10, 2011 01:47 PM LIFETIME NON-USER OF TOBACCO [facility] Advance Directives: All historical and current Section Date Range: From patient's date of to the date document was created. This section includes ALL of a patient's completed or amended VA Advance and Rescinded Directives. The entries below indicate that a directive exists for the patient, but an actual copy is not included with this document. The data comes from all [place] facilities. Date Advance Directives Provider Source May 02, 2002 ADVANCE DIRECTIVE CLAUDIA [place] [facility] Encounter Notes: All associated encounter notes This section contains the clinical notes associated to the Encounter. Date/Time Encounter Note(s) Provider Source Mar 25, 2024 04:25 PM ADDENDUM: LOCAL TITLE: Addendum STANDARD TITLE: ADDENDUM DATE OF NOTE: MAR 25, 2024@16:25:45 ENTRY DATE: MAR 25, 2024@16:25:47 AUTHOR: TIFFANI SOTELO COSIGNER: URGENCY: STATUS: COMPLETED At last visit patient requested a [employer] letter related to his prostate/bladder cancer I see he already has significant service connection to this I cannot say that I can write for any further service connection if he feels he needs more maybe his doctors in [place] that are actually following this with him could write annexes letter? /delilah/ Tiffani Sotelo MD [facility] Signed: 03/25/2024 16:26 Receipt Acknowledged By: 03/30/2024 11:24 /es/ Becky Roman RN,BSN [facility] --- Original Document --- 03/17/24 PRIMARY CARE CLINIC PROGRESS NOTE PB: SUBJECTIVE: MARY NORMAN is a 74 years old MALE. HPI: Presents to the clinic today for a periodic health maintenance visit. Last seen May 26, 2023 for his migraines and allergies. He reports after his bladder/prostate surgery back in October 2022 his right greater toenail turned black and he had numbness in the toes since he had the toenail removed by Dr. Beard but continues to have numbness in that toe and at times it will get red but no pain does not get any cyanotic color to it. He reports his allergies are fairly stable comes and goes and depending on the weather. He does report being due for colonoscopy but he is not interested in proceeding that at this time. He is needing some dental work. NON VA PCP: none SPECIALIST; Dr. Bong Blackman, urology, [facility] Dr. 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 STATIONS/DEPLOYMENTS: none MAJOR ACCIDENTS OR INJURIES WHILE ON ACTIVE DUTY: SURGICAL HX: Left nephrectomy splenectomy cholecystectomy bladder and prostate removed 10/2022 Problem List 1) HTN - Hypertension (SNOMED CT 93886442) 2) ELLIS - Headache (SNOMED CT 23770272) 3) Low back pain (SNOMED CT 618476392) 4) HLD - Hyperlipidemia (SNOMED CT 19992255) 5) Osteoarthritis of right knee joint (SNOMED CT 932185686011062) 6) Obesity (SNOMED CT 818193244) 7) Malignant neoplasm of urinary bladder 8) Posterior vitreous detachment 9) Bladder cancer 10) BPH - Benign prostatic hypertrophy 11) Polyp Colon (SCT 74745776) 12) Allergy to bee venom 13) Allergic Rhinitis (SCT 19633882) 14) Sensorineural hearing loss of bilateral ears 15) Bilateral tinnitus Active Outpatient Medications (including Supplies): Active Outpatient Medications Status 1) ADHESIVE REMOVER WIPE H#9599 USE/APPLY 1 WIPE TO ACTIVE AFFECTED AREA(S) ONCE A DAY FOR ADHESIVE REMOVAL (EXTERNAL USE ONLY) 2) ATORVASTATIN CALCIUM 40MG TAB TAKE ONE TABLET BY ACTIVE MOUTH AT BEDTIME 3) BAG,UROSTOMY NIGHT 2L COLOPLAST #94333 USE BAG ONCE A ACTIVE (S) DAY 4) BARRIER,BRAVA STRIPS C#109009 USE STRIP STOMA EVERY ACTIVE (S) WEEK 5) DIVALPROEX 250MG 24HR (ER) SA TAB TAKE ONE TABLET BY ACTIVE MOUTH EVERY MORNING AND TAKE TWO TABLETS EVERY EVENING MIGRAINES 6) FLUTICASONE PROP 50MCG 120D NASAL INHL INSTILL 2 ACTIVE SPRAYS IN EACH NOSTRIL ONCE A DAY FOR ALLERGIES NEEDED (MUST BE USED DIRECTED FOR MINIMUM OF 21 DAYS TO PROVIDE ADEQUATE BENEFITS) 7) GLOVE VINYL MEDIUM PWDR-FREE NONSTERILE USE GLOVE TO ACTIVE (S) AFFECTED AREA(S) ONCE A DAY FOR INFECTION PREVENTION 8) LISINOPRIL 10MG TAB TAKE ONE TABLET BY MOUTH ONCE A ACTIVE DAY FOR HIGH BLOOD PRESSURE 9) MONTELUKAST NA 10MG TAB TAKE ONE TABLET BY MOUTH AT ACTIVE BEDTIME 10) POUCH,UROSTOMY SENSURA COLOPLAST #63754 USE POUCH ACTIVE STOMA 4XWEEK FOR OSTOMY 11) SKIN PREP,NO STING WIPE USE/APPLY 1 PAD TO AFFECTED ACTIVE AREA(S) ONCE A DAY 12) TAPE,HYPAFIX 2IN X 10YD U#7885 USE/APPLY TAPE TO ACTIVE (S) AFFECTED AREA(S) NEEDED FOR WOUND CARE (EXTERNAL USE ONLY) Allergies: CODEINE, MORPHINE, SIMVASTATIN, BEE STINGS Review of Systems: as per HPI and Systemic: Denies fatigue, fever, chills, or weight loss CV: Denies chest pain, palpitations Pulmonary: Denies hemoptysis, Shortness of breath, dyspnea on exertion GI: Denies constipation, bloody stools, diarrhea, indigestion, or n/v Ext: Denies any swelling Neuro: Denies slurred speech or dizziness Skin: Denies abnormal lesions; denies any new rashes PSYCH: Denies SI/HI; denies nightmares OBJECTIVE: Vital Signs Temperature: 98.4 F [36.9 C] (03/17/2024 09:08) Respiratory Rate: 18 (03/17/2024 09:08) Pulse Rate: 66 (03/17/2024 09:08) Blood Pressure: 130/80 (03/17/2024 09:15) HT: 69.0 in [175.3 cm] (03/17/2024 09:08) WT: 239.0 lb [108.41 kg] (03/17/2024 09:08) BMI: 35.4 97% (03/17/2024 09:08) Physical Exam General: NAD noted, A&Ox3, pleasant, appears stated age HEENT: NCAT, TM's clear, nares and oropharynx clear Neck: Supple with normal active ROM, without any lymphadenopathy Heart: RRR, no murmur, clicks, or rub Resp: Lungs CTA bilaterally, respirations even and unlabored Ext: No clubbing, cyanosis, edema or obvious deformity Skin: Warm, pink, and dry, no rashes Neuro: Grossly intact Psych: Affect normal, answers questions appropriately throughout visit A/P: ASSESSMENT and PLAN Health Maintenance: Labs pending. Discussed preventative health to include diet and exercise as well as immunizations. HTN - controlled on lisinopril Headache- on valproic acid; still gets breakthrough headaches and takes fioricet for that. Low back pain/Pain in right knee- stable Hyperlipidemia- on atorvastatin Obesity- encouraged weight loss Renal/bladder/prostate cancer- followed by urology Matteo SAMAYOAL has had bladder and prostate removed has a urostomy tube H/O Posterior vitreous detachment- stable no issues; suregery tomorrow; Followed by Dr. Oneal. 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 Stable. Discussed medications with patient; med rec completed. Continue current regimen as prescribed by PCP and specialists. RTC as needed if developing any new or worsening symptoms. Please notify PACT with medication changes or for orders coordination as needed if seen by a specialist in the future. Will f/u with patient once updated labs / imaging / testing received; otherwise f/u as listed below. Follow-up: 12 months with fasting labs prior to appointment and/or as needed. Discussed with patient that in the event of community imaging / testing being ordered in the future, once the imaging / testing has been completed, please notify PACT of completion at outside facility if not called with results within 1 week by a [facility] PACT member; this is due to intermittent lapses in notification of imaging completion within [facility]. All questions answered; agrees to plan of care. Follow up as listed above, annually, and as needed. Keep all appointments. Medications Reconciled. See AVS given to [place]. Time spent 30 minutes. /delilah/ Tiffani Sotelo MD [facility] Signed: 03/17/2024 10:05 03/30/2024 ADDENDUM STATUS: UNSIGNED You may not VIEW this UNSIGNED Addendum. TIFFANI SOTELO [facility] Mar 18, 2024 10:08 AM PHYSICIAN LETTERS: LOCAL TITLE: TEST RESULT GENERAL LETTER STL STANDARD TITLE: PHYSICIAN LETTERS DATE OF NOTE: MAR 18, 2024@10:08 ENTRY DATE: MAR 18, 2024@10:08:38 AUTHOR: TIFFANI SOTELO EXP COSIGNER: URGENCY: STATUS: COMPLETED [facility] [address] [place] [address] Mar 18, 2024 Mr. Mary Norman [address] [place] [id number] Dear Mr. Norman: This letter is to inform you regarding your recent laboratory tests. The ordering provider has reviewed these reports and will take necessary action, if needed. Date Lab Test Result H/L Unit Range 03/17/2024 TSH 0.889 uIU/mL 0.47 - 5 03/17/2024 VITAMIN D LEVEL 34.5 ng/mL 30 - 96 03/17/2024 eGFR 69 - 03/17/2024 VALPROIC ACID LEV <12.5 L ug/mL 50 - 100 03/17/2024 SODIUM 138 mEq/L 136 - 145 03/17/2024 POTASSIUM 4.1 mEq/L 3.5 - 5 03/17/2024 CHLORIDE 102 mEq/L 98 - 107 03/17/2024 UREA NITROGEN 24 mg/dL 9 - 25 03/17/2024 CREATININE, SERUM 1.12 mg/dL 0.7 - 1.3 03/17/2024 CALCIUM, SERUM 9.1 mg/dL 8.4 - 10.4 03/17/2024 PROTEIN, TOTAL 7.8 g/dL 6 - 8.6 03/17/2024 ALBUMIN, SERUM 3.7 g/dL 3.4 - 5 03/17/2024 TRIGLYCERIDE 131 mg/dL 0 - 150 03/17/2024 CHOLESTEROL 161 mg/dL 0 - 200 03/17/2024 ALKALINE PHOSPHAT 108 U/L 40 - 150 03/17/2024 ALT (SGPT) 20 U/L 8 - 40 03/17/2024 AST (SGOT) 23 U/L 5 - 34 03/17/2024 BILIRUBIN, TOTAL 0.6 mg/dL 0.2 - 1.2 03/17/2024 CO2 27 mEq/L 22 - 31 03/17/2024 GLUCOSE 98 mg/dL 72 - 99 03/17/2024 HDL-CHOL 35.7 L mg/dL 40 - 03/17/2024 LDL-CHOL 99.1 mg/dL - 03/17/2024 HDL%CHO 22.2 % 25 - 03/17/2024 HEMOGLOBIN A1C 6.2 H % 4.0 - 6.0 03/17/2024 WBC 8.3 10*3/uL 3.6 - 11.2 03/17/2024 RBC 4.87 10*6/uL 4.10 - 5.70 03/17/2024 HEMOGLOBIN 15.0 g/dL 13.1 - 16.8 03/17/2024 HEMATOCRIT 44.7 % 38.2 - 48.4 03/17/2024 MCV 91.8 fL 80.0 - 100.0 03/17/2024 MCH 30.8 pg 27.0 - 34.0 03/17/2024 MCHC 33.6 g/dL 33.0 - 36.0 03/17/2024 RDW 13.6 % 11.8 - 15.1 03/17/2024 PLATELETS 358 10*3/uL 150 - 400 03/17/2024 MPV 9.8 fL 7.5 - 11.2 03/17/2024 NEUTROPHIL % 45.4 % - 03/17/2024 LYMPHOCYTE % 38.2 % - 03/17/2024 MONOCYTES, AUTO % 11.8 % - 03/17/2024 EO% 3.7 % - 03/17/2024 BASOPHILS, AUTO % 0.7 % - 03/17/2024 IG% 0.2 % - 03/17/2024 NEUT ABS 3.78 10*3/uL 2.10 - 8.00 03/17/2024 LYMPH ABS 3.19 10*3/uL 0.77 - 4.50 03/17/2024 MONO ABS 0.98 H 10*3/uL 0.19 - 0.8 03/17/2024 EO ABS 0.31 10*3/uL 0.00 - 0.60 03/17/2024 BASO ABS 0.06 10*3/uL 0.00 - 0.20 03/17/2024 IG ABS 0.02 10*3/uL 0.00 - 0.05 03/17/2024 PSA, TOTAL 0.00 ng/mL 0 - 4 If you are seeing any outside provider(s), please share this information with him/her. If you have any questions, please feel free to contact our clinic. Your hemoglobin A1C, screening test for diabetes, is a little elevated at 6.2 placing you in a prediabetes stage. I would limit your simple sugar intake and lower your fat intake to prevent this from turning into diabetes. Sincerely, Tiffani Sotelo MD [facility] MARY NORMAN TAMMY [facility] Mar 17, 2024 09:17 AM PRIMARY CARE PROGR ESS NOTE: LOCAL TITLE: PRIMARY CARE CLINIC PROGRESS NOTE PB STANDARD TITLE: PRIMARY CARE PROGRESS NOTE DATE OF NOTE: MAR 17, 2024@09:17 ENTRY DATE: MAR 17, 2024@09:17:23 AUTHOR: TIFFANI SOTELO EXP COSIGNER: URGENCY: STATUS: COMPLETED PRIMARY CARE CLINIC PROGRESS NOTE PB Has ADDENDA SUBJECTIVE: MARY NORMAN is a 74 years old MALE. HPI: Presents to the clinic today for a periodic health maintenance visit. Last seen May 26, 2023 for his migraines and allergies. He reports after his bladder/prostate surgery back in October 2022 his right greater toenail turned black and he had numbness in the toes since he had the toenail removed by Dr. Beard but continues to have numbness in that toe and at times it will get red but no pain does not get any cyanotic color to it. He reports his allergies are fairly stable comes and goes and depending on the weather. He does report being due for colonoscopy but he is not interested in proceeding that at this time. He is needing some dental work. NON VA PCP: none SPECIALIST; Dr. Bong Blackman, urology, [facility] Dr. Benito, oncology ([place]) FAMILY HX: Mother is living, dementia age - 88 Father is living age - 91 Siblings - negative SOCIAL HX: MARITAL STATUS: , Janny WORK HX: retired, Heating/Air conditioning HOBBIES: Farms, hunting, and fishing TOBACCO: quit chewing after 30 years ALCOHOL: no DRUGS: no HX: BRANCH: [employer] 1968-. 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 STATIONS/DEPLOYMENTS: none MAJOR ACCIDENTS OR INJURIES WHILE ON ACTIVE DUTY: SURGICAL HX: Left nephrectomy splenectomy cholecystectomy bladder and prostate removed 10/2022 Problem List 1) HTN - Hypertension (SNOMED CT 77406857) 2) ELLIS - Headache (SNOMED CT 01645181) 3) Low back pain (SNOMED CT 612992964) 4) HLD - Hyperlipidemia (SNOMED CT 20484092) 5) Osteoarthritis of right knee joint (SNOMED CT 763164881486865) 6) Obesity (SNOMED CT 408551832) 7) Malignant neoplasm of urinary bladder 8) Posterior vitreous detachment 9) Bladder cancer 10) BPH - Benign prostatic hypertrophy 11) Polyp Colon (SCT 30832594) 12) Allergy to bee venom 13) Allergic Rhinitis (SCT 76894527) 14) Sensorineural hearing loss of bilateral ears 15) Bilateral tinnitus Active Outpatient Medications (including Supplies): Active Outpatient Medications Status 1) ADHESIVE REMOVER WIPE H#5306 USE/APPLY 1 WIPE TO ACTIVE AFFECTED AREA(S) ONCE A DAY FOR ADHESIVE REMOVAL (EXTERNAL USE ONLY) 2) ATORVASTATIN CALCIUM 40MG TAB TAKE ONE TABLET BY ACTIVE MOUTH AT BEDTIME 3) BAG,UROSTOMY NIGHT 2L COLOPLAST #17257 USE BAG ONCE A ACTIVE (S) DAY 4) BARRIER,BRAVA STRIPS C#035725 USE STRIP STOMA EVERY ACTIVE (S) WEEK 5) DIVALPROEX 250MG 24HR (ER) SA TAB TAKE ONE TABLET BY ACTIVE MOUTH EVERY MORNING AND TAKE TWO TABLETS EVERY EVENING MIGRAINES 6) FLUTICASONE PROP 50MCG 120D NASAL INHL INSTILL 2 ACTIVE SPRAYS IN EACH NOSTRIL ONCE A DAY FOR ALLERGIES NEEDED (MUST BE USED DIRECTED FOR MINIMUM OF 21 DAYS TO PROVIDE ADEQUATE BENEFITS) 7) GLOVE VINYL MEDIUM PWDR-FREE NONSTERILE USE GLOVE TO ACTIVE (S) AFFECTED AREA(S) ONCE A DAY FOR INFECTION PREVENTION 8) LISINOPRIL 10MG TAB TAKE ONE TABLET BY MOUTH ONCE A ACTIVE DAY FOR HIGH BLOOD PRESSURE 9) MONTELUKAST NA 10MG TAB TAKE ONE TABLET BY MOUTH AT ACTIVE BEDTIME 10) POUCH,UROSTOMY SENSURA COLOPLAST #37780 USE POUCH ACTIVE STOMA 4XWEEK FOR OSTOMY 11) SKIN PREP,NO STING WIPE USE/APPLY 1 PAD TO AFFECTED ACTIVE AREA(S) ONCE A DAY 12) TAPE,HYPAFIX 2IN X 10YD U#5619 USE/APPLY TAPE TO ACTIVE (S) AFFECTED AREA(S) NEEDED FOR WOUND CARE (EXTERNAL USE ONLY) Allergies: CODEINE, MORPHINE, SIMVASTATIN, BEE STINGS Review of Systems: as per HPI and Systemic: Denies fatigue, fever, chills, or weight loss CV: Denies chest pain, palpitations Pulmonary: Denies hemoptysis, Shortness of breath, dyspnea on exertion GI: Denies constipation, bloody stools, diarrhea, indigestion, or n/v Ext: Denies any swelling Neuro: Denies slurred speech or dizziness Skin: Denies abnormal lesions; denies any new rashes PSYCH: Denies SI/HI; denies nightmares OBJECTIVE: Vital Signs Temperature: 98.4 F [36.9 C] (03/17/2024 09:08) Respiratory Rate: 18 (03/17/2024 09:08) Pulse Rate: 66 (03/17/2024 09:08) Blood Pressure: 130/80 (03/17/2024 09:15) HT: 69.0 in [175.3 cm] (03/17/2024 09:08) WT: 239.0 lb [108.41 kg] (03/17/2024 09:08) BMI: 35.4 97% (03/17/2024 09:08) Physical Exam General: NAD noted, A&Ox3, pleasant, appears stated age HEENT: NCAT, TM's clear, nares and oropharynx clear Neck: Supple with normal active ROM, without any lymphadenopathy Heart: RRR, no murmur, clicks, or rub Resp: Lungs CTA bilaterally, respirations even and unlabored Ext: No clubbing, cyanosis, edema or obvious deformity Skin: Warm, pink, and dry, no rashes Neuro: Grossly intact Psych: Affect normal, answers questions appropriately throughout visit A/P: ASSESSMENT and PLAN Health Maintenance: Labs pending. Discussed preventative health to include diet and exercise as well as immunizations. HTN - controlled on lisinopril Headache- on valproic acid; still gets breakthrough headaches and takes fioricet for that. Low back pain/Pain in right knee- stable Hyperlipidemia- on atorvastatin Obesity- encouraged weight loss Renal/bladder/prostate cancer- followed by urology [facility] has had bladder and prostate removed has a urostomy tube H/O Posterior vitreous detachment- stable no issues; suregery tomorrow; Followed by Dr. Oneal. 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 Stable. Discussed medications with patient; med rec completed. Continue current regimen as prescribed by PCP and specialists. RTC as needed if developing any new or worsening symptoms. Please notify PACT with medication changes or for orders coordination as needed if seen by a specialist in the future. Will f/u with patient once updated labs / imaging / testing received; otherwise f/u as listed below. Follow-up: 12 months with fasting labs prior to appointment and/or as needed. Discussed with patient that in the event of community imaging / testing being ordered in the future, once the imaging / testing has been completed, please notify PACT of completion at outside facility if not called with results within 1 week by a [facility] member; this is due to intermittent lapses in notification of imaging completion within [facility]. All questions answered; agrees to plan of care. Follow up as listed above, annually, and as needed. Keep all appointments. Medications Reconciled. See AVS given to . Time spent 30 minutes. /delilah/ Tiffani Sotelo MD [facility] Signed: 03/17/2024 10:05 03/25/2024 ADDENDUM STATUS: COMPLETED At last visit patient requested a [employer] letter related to his prostate/bladder cancer I see he already has significant service connection to this I cannot say that I can write for any further service connection if he feels he needs more maybe his doctors in [place] that are actually following this with him could write annexes letter? /delilah/ Tiffani Sotelo MD [facility] Signed: 03/25/2024 16:26 Receipt Acknowledged By: 03/30/2024 11:24 /delilah/ Becky Roman RN,BRUNO [facility] 03/30/2024 ADDENDUM STATUS: COMPLETED The reports he is needing a letter saying that due to his bladder cancer he is unable to work due to his ostomy bag. He is seeking unemployability Let the know that I would let Dr. Sotelo know and would call him back with any further updates. The voiced understanding. /delilah/ Becky Roman RN,BSTamiko [facility] Signed: 03/30/2024 11:37 TIFFANI SOTELO [facility] Mar 17, 2024 08:58 AM PRIMARY CARE NURSI KRIS NOTE: LOCAL TITLE: PRIMARY CARE NURSING PROGRESS NOTE (TEXT) NURSING P STANDARD TITLE: PRIMARY CARE NURSING NOTE DATE OF NOTE: MAR 17, 2024@08:58 ENTRY DATE: MAR 17, 2024@08:58:12 AUTHOR: MARYAN ROSS EXP COSIGNER: URGENCY: STATUS: COMPLETED Established Patient MARY NORMAN IS A 74 YEAR OLD MALE BEING SEEN IN CLINIC MAR 17, 2024. == == REASON FOR VISIT: [place] here for yearly health exam, c/o right great toe numbness since Prostate/Bladder surg 10/2022 Are you receiving care any where other than the [facility]? No HEALTH AND SURGICAL HISTORY: Does patient report using home oxygen? No CURRENT ACTIVE MEDICATIONS FOR REVIEW: Allergies/ADRs (Tool #5) FACILITY ALLERGY/ADR -------- No Remote Allergy/ADR Data available for this patient [facility] BEE STINGS [facility] CODEINE [facility] MORPHINE [facility] SIMVASTATIN Med. Reconciliation (Tool #1) INCLUDED IN THIS LIST: Alphabetical list of active outpatient prescriptions dispensed from this [place] (local) and dispensed from another [place] or [facility] facility (remote) as well as inpatient orders (local pending and active), local clinic medications, locally documented non-VA medications, and local prescriptions that have or been discontinued in the past 90 days. Non-VA Meds Last Documented On: Jun 30, 2018 NOTE The display of VA prescriptions dispensed from another [place] or [facility] facility (remote) is limited to active outpatient prescription entries matched to National Drug File at the originating site and may not include some items such as investigational drugs, compounds, etc. NOT INCLUDED IN THIS LIST: Medications self-entered by the patient into personal health records (i.e. [employer]) are NOT included in this list. Non-VA medications documented outside this [place], remote inpatient orders (regardless of status) and remote clinic medications are NOT included in this list. The patient and provider must always discuss medications the patient is taking, regardless of where the medication was dispensed or obtained. OUTPT ACETAMINOPHEN 325/[id number]/CAFN 40MG TAB (Status = ) TAKE 1 TABLET BY MOUTH EVERY 6 HOURS NEEDED FOR HEADACHE CAUTION: DO NOT EXCEED 4000MG/DAY TOTAL OF ACETAMINOPHEN (APAP). Rx# [id number] Last Released: 02/03/24 Qty/Days Supply: 60/30 Rx Expiration Date: 02/26/24 Refills Remainin Indication: FOR HEADACHE OUTPT ATORVASTATIN CALCIUM 40MG TAB (Status = Discontinued) TAKE ONE TABLET BY MOUTH AT BEDTIME Rx# [id number] Last Released: 12/07/23 Qty/Days Supply: 60/60 Rx Expiration Date: 12/28/23 Refills Remainin OUTPT ATORVASTATIN CALCIUM 40MG TAB (Status = Active) TAKE ONE TABLET BY MOUTH AT BEDTIME Rx# [id number] Last Released: 01/29/24 Qty/Days Supply: 60/60 Rx Expiration Date: 03/27/24 Refills Remainin OUTPT DIVALPROEX 250MG 24HR (ER) SA TAB (Status = Active) TAKE ONE TABLET BY MOUTH EVERY MORNING AND TAKE TWO TABLETS EVERY EVENING MIGRAINES Rx# [id number] Last Released: 01/28/24 Qty/Days Supply: 270/90 Rx Expiration Date: 05/26/24 Refills Remainin Indication: MIGRAINES OUTPT FLUTICASONE PROP 50MCG 120D NASAL INHL (Status = Active) INSTILL 2 SPRAYS IN EACH NOSTRIL ONCE A DAY FOR ALLERGIES NEEDED (MUST BE USED DIRECTED FOR MINIMUM OF 21 DAYS TO PROVIDE ADEQUATE BENEFITS) Rx# [id number] Last Released: 02/01/24 Qty/Days Supply: Rx Expiration Date: 11/04/24 Refills Remainin Indication: FOR ALLERGIES OUTPT LISINOPRIL 10MG TAB (Status = Active) TAKE ONE TABLET BY MOUTH ONCE A DAY FOR HIGH BLOOD PRESSURE Rx# [id number] Last Released: 02/16/24 Qty/Days Supply: 90/90 Rx Expiration Date: 10/29/24 Refills Remainin Indication: FOR HIGH BLOOD PRESSURE OUTPT MONTELUKAST NA 10MG TAB (Status = Discontinued) TAKE ONE TABLET BY MOUTH AT BEDTIME Rx# [id number] Last Released: 12/07/23 Qty/Days Supply: 60/60 Rx Expiration Date: 12/28/23 Refills Remainin OUTPT MONTELUKAST NA 10MG TAB (Status = Active) TAKE ONE TABLET BY MOUTH AT BEDTIME Rx# [id number] Last Released: 02/02/24 Qty/Days Supply: 60/60 Rx Expiration Date: 03/27/24 Refills Remainin SUPPLIES OUTPT ADHESIVE REMOVER WIPE H#7760 (Status = Active) USE/APPLY 1 WIPE TO AFFECTED AREA(S) ONCE A DAY FOR ADHESIVE REMOVAL (EXTERNAL USE ONLY) Rx# [id number] Last Released: 02/08/24 Qty/Days Supply: 100 Rx Expiration Date: 11/05/24 Refills Remainin Indication: FOR ADHESIVE REMOVAL OUTPT BAG,UROSTOMY NIGHT 2L COLOPLAST #92524 (Status = Active) USE BAG ONCE A DAY Rx# [id number] Last Released: 02/08/24 Qty/Days Supply: Rx Expiration Date: 11/04/24 Refills Remainin OUTPT BARRIER,BRAVA STRIPS C#128828 (Status = Active) USE STRIP STOMA EVERY WEEK Rx# [id number] Last Released: 02/07/24 Qty/Days Supply: Rx Expiration Date: 11/04/24 Refills Remainin OUTPT GLOVE VINYL MEDIUM PWDR-FREE NONSTERILE (Status = Active) USE GLOVE TO AFFECTED AREA(S) ONCE A DAY FOR INFECTION PREVENTION Rx# [id number] Last Released: 02/10/24 Qty/Days Supply: 100/90 Rx Expiration Date: 02/08/25 Refills Remainin Indication: FOR INFECTION PREVENTION OUTPT POUCH,UROSTOMY SENSURA COLOPLAST #56318 (Status = Active) USE POUCH STOMA 4XWEEK FOR OSTOMY Rx# [id number] Last Released: 02/17/24 Qty/Days Supply: Rx Expiration Date: 01/05/25 Refills Remainin Indication: FOR OSTOMY OUTPT POUCH,UROSTOMY,JEAN MARIE-FIT,1-3/ 4IN C#4014-63 (Status = Discontinued) USE POUCH STOMA 4XWEEK FOR OSTOMY Rx# [id number] Last Released: Qty/Days Supply: Rx Expiration Date: 12/09/24 Refills Remainin Indication: FOR OSTOMY OUTPT SKIN PREP,NO STING WIPE (Status = Active) USE/APPLY 1 PAD TO AFFECTED AREA(S) ONCE A DAY Rx# [id number] Last Released: 02/08/24 Qty/Days Supply: Rx Expiration Date: 11/04/24 Refills Remainin OUTPT TAPE,HYPAFIX 2IN X 10YD U#4209 (Status = Active) USE/APPLY TAPE TO AFFECTED AREA(S) NEEDED FOR WOUND CARE (EXTERNAL USE ONLY) Rx# [id number] Last Released: 02/15/24 Qty/Days Supply: Rx Expiration Date: 02/11/25 Refills Remainin Indication: FOR WOUND CARE PHARMACY TERMS AND POSSIBLE PATIENT ACTIONS INPT = [place] inpatient order IV = [place] intravenous medication OUTPT = [place] outpatient prescription PHARMACY POSSIBLE PATIENT TERMS EXPLANATION ACTIONS -------- ----- ACTIVE A prescription that can be If you have refills, filled at the local [place] pharmacy. you may request a refill of this prescription from your [place] pharmacy. CLINIC A medication you received during If you have questions a visit to a [place] clinic or about this medication emergency department. contact your [place] healthcare team. DISCONTINUED A prescription your provider has Contact your [facility] stopped. It is no longer healthcare team if you available to be sent to you or need more of this picked up at the VA pharmacy medication. window. A prescription which is too old Contact your VA to fill. This does not refer to healthcare team if you the expiration date of the need more of this medication in the container. medication. NON-VA A medication that came from If this medication someplace other than a VA information is pharmacy. This may be a incorrect or out of prescription from either the VA date, please tell your or non VA providers that was VA healthcare team. filled outside the VA. Or, it may be an etyx-mub-fevogmm (OTC), herbal, dietary supplements or sample medication. ON HOLD An active prescription that will Contact your VA not be filled until pharmacy pharmacy when you need resolves the issue. more of this medication. PARKED An active prescription that will Contact your VA not be filled until the patient pharmacy when you need requests it. this medication. PENDING This prescription order has been If you have been sent to the pharmacy for review instructed to start and is not ready yet. this medication now, contact your VA pharmacy. SUSPENDED An active prescription that is Contact your VA not scheduled to be filled yet. pharmacy if you need You should receive it before this medication now. you run out. Patient reports taking medications as ordered. IS PATIENT TAKING ANY OVER THE COUNTER MEDICATIONS, SUCH VITAMINS OR HERBAL SUPPLEMENTS, INCLUDING ANY MEDICATIONS PRESCRIBED BY ANOTHER PHYSICIAN? No ALLERGIES/ADVERSE REACTIONS: CODEINE, MORPHINE, SIMVASTATIN, BEE STINGS Does patient have any new allergies to report since last visit? NO VITALS: TEMPERATURE: 98.7 F [37.1 C] (03/23/2023 08:59) BP: 124/86 (05/26/2023 09:28) RESP: 18 (05/26/2023 09:28) PULSE: 69 (05/26/2023 09:28) HT: 69 in [175.3 cm] (03/23/2023 08:59) WT: 233.1 lb [105.73 kg] (05/26/2023 09:28) BMI: 34.5 PAIN ASSESSMENT: (Most Recent Pain Score in Vitals Package: 0 (03/23/2023 08:59) ) The patient indicated that they and their close contacts have not traveled outside of the [place] in the past 21 days. The patient reports the following symptoms: No symptoms present The patient is not immunocompromised. The patient does not report having a history of Multi Drug Resistant Organism (MDRO) within the last five years. The patient does not report having been exposed to measles, chickenpox, or zoster in last 30 days. Patient reports no pain at this visit. Pain Score = 0. STRESS: Thank you for your service. Now let us serve you. At the [facility], we strive to provide you with exceptional health care that improves your health and well-being. Are you feeling sad, empty, or depressed? No Do you need to talk about things in your life that worry you or cause you stress? No Do you need to talk about personal problems, family problems, alcohol use, drug use, or mental or emotional illness? No SUICIDE SCREENING: The patient was asked, Over the past two weeks, how often have you been bothered by thoughts that you would be better off or of hurting yourself in some way? Not At All SPIRITUAL ASSESSMENT: Are there zoroastrianism practices or spiritual concerns you want the produce laborer, your physician, and other health care team members to immediately know about? No Patient advised to call the clinic for any concerns, questions, or symptoms. Patient and/or caregiver verbalized understanding of plan of care. Suicide Screen: C-SSRS Screening [place]-Suicide Severity Rating Scale (C-SSRS Screener) 1. Over the past month, have you wished you were or wished you could go to sleep and not wake up? No 2. Over the past month, have you had any actual thoughts of killing yourself? No 3. Over the past month, have you been thinking about how you might do this? Response not required due to responses to other questions. 4. Over the past month, have you had these thoughts and had some intention of acting on them? Response not required due to responses to other questions. 5. Over the past month, have you started to work out or worked out the details of how to kill yourself? Response not required due to responses to other questions. 6. If yes, at any time in the past month did you intend to carry out this plan? Response not required due to responses to other questions. 7. In your lifetime, have you ever done anything, started to do anything, or prepared to do anything to end your life (for example, collected pills, obtained a gun, gave away valuables, went to the roof but didn't jump)? No 8. If YES, was this within the past 3 months? Response not required due to responses to other questions. Sexual Orientation: The patient thinks of their sexual orientation as: Straight or Heterosexual Alcohol Use Screen (AUDIT-C): Alcohol Screen: SCREEN FOR ALCOHOL (AUDIT-C) An alcohol screening test (AUDIT-C) was negative (score=0). 1. How often did you have a drink containing alcohol in the past year? Consider a drink to be a 12 ounce can or bottle of regular beer, 8 ounces of malt liquor, a 5 ounce glass of table wine, or a 1.5 ounce shot of liquor (like scotch, gin, or vodka). Never 2. How many drinks containing alcohol did you have on a typical day when you were drinking in the past year? Response not required due to responses to other questions. 3. How often did you have six or more drinks on one occasion in the past year? Response not required due to responses to other questions. Depression Screening: Perform PHQ-2 A PHQ-2 screen was performed. The score was 0 which is a negative screen for depression. Over the past two weeks, how often have you been bothered by the following problems? 1. Little interest or pleasure in doing things Not at all 2. Feeling down, depressed, or hopeless Not at all Tobacco Use Screening: The patient has never used tobacco. Homelessness/Food Insecurity Screen: In the past 2 months, have you been living in stable housing that you own, rent, or stay in as part of a household? Yes - Living in stable housing. Are you worried or concerned that in the next 2 months you may NOT have stable housing that you own, rent, or stay in as part of a household? No - Not worried about housing near future The reports the following: Within the past 12 months, you worried whether your food would run out before you got money to buy more. Never true Within the past 12 months, the food you bought just didn't last and you didn't have money to get more. Never true Advanced Directive Screen/Flue Lining Dipper: ADVANCE DIRECTIVE SCREENING: I asked if the patient has an advance directive, and determined that: Patient does not have an Advance Directive. Patient was given form to update and return when completed. ADVANCE DIRECTIVE NOTIFICATION I provided the patient with written notification about advance directives. Level of understanding: Weight Control/Nutrition Counseling: * The patient received the following counseling at this encounter: [facility] - PHP MAP: PERSONAL HEALTH PLAN INVENTORY & MAP [place]'s Response: family /es/ HÉCTOR REED Signed: 03/17/2024 09:19 MARYAN ROSS IN [place]
--- OUTSIDE RECORDS SUMMARY | 2025-03-07 06:34 | XMS_ITS ---
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 Date/Time Encounter Type Encounter Description Reason Pro vider Source Mar 07, 2025 11:34 AM Outpatient Encounter CLINICAL PHARMACY IHE Encounter Template Text not used by [place] Plan of Treatment: Future Appointments (+ 6 months) and Future Tests (+/- 45 days) The Plan of Treatment section includes future care activities for the patient from all [facility] treatment[facility]. This section includes future appointments and future orders which are active, pending or scheduled. Future Appointments This section includes appointments that were scheduled to occur 6 months from the date of the Encounter, up to a maximum of 20 appointments. The data comes from all [place] treatment facilities. Appointment Date/Time Appointment Type Appointme nt Facility Name Mar 10, 2025 09:30 AM AMBULATORY - MEDICINE [facility] Active, Pending, and Scheduled Orders This section includes a listing of several types of active, pending, and scheduled orders, including clinic medications orders, diagnostic test orders, procedure orders and consult orders; where the start date of the order is 45 days before the date of the Encounter or 45 days after the date of theEncounter. The data comes from all [facility] facilities. Test Date/Time Test Type Test Details Facility Name Mar 10, 2025 10:16 AM Procedure Order CP EKG PB CP MUSE EKG POP 657A4 [facility] Mar 10, 2025 10:42 AM Consult Order COMMUNITY CARE-EMERGENCY ROOM [id number] Cons [facility] Lab Results: +/- 30 days of the encounter This section includes the Chemistry and Hematology Lab Results on record with [place] for the patient. Radiology Reports and Pathology Reports are provided separately, in subsequent sections. Lab Results This section contains the Chemistry/Hematology Results that were resulted 30 days before or 30 daysafter the date of the Encounter. Date/Time Source Result Type Result - Unit Interpretation Reference Range Specimen Type Comment Mar 03, 2025 09:21 AM [facility] PROST. SPECIFIC AG.(PB-STL) SERUM Specimen Ty pe: SERUM No comment entered. Ordering Provider: TIFFANI SOTELO Report Released Date/Time: Mar 17, 2024 09:56 AM Reporting Lab: [place] [facility] [address] [place] [address] Performing Lab: [place] [facility] [address] [place] [address] PROST. SPECIFIC AG.(PB-STL) <0.10 ng/mL L 0-4 Mar 03, 2025 09:21 AM [facility] CB HGA1C BLOOD Specimen Type: BLOOD No comment entered. Ordering Provider: TIFFANI SOTELO Report Released Date/Time: Mar 17, 2024 09:56 AM Reporting Lab: [place] [facility] [address] [place] [address] Performing Lab: [place] [facility] [address] [place] [address] HGA1C 6.1 H 4.0-6.0 Mar 03, 2025 09:21 AM [facility] TSH (MA-PB) SERUM Specimen Typ e: SERUM No comment entered. Ordering Provider: TIFFANI SOTELO Report Released Date/Time: Mar 17, 2024 09:56 AM Reporting Lab: [place] [facility] [address] [place] [address] Performing Lab: [place] [facility] [address] [place] [address] TSH 0.794 u[IU]/mL 0.47-5 Mar 03, 2025 09:21 AM [facility] COMPREHENSIVE METABOLIC PANEL PLASMA Specimen Type: PLASMA No comment entered. Ordering Provider: TIFFANI SOTELO Report Released Date/Time: Mar 17, 2024 09:56 AM Reporting Lab: [place] [facility] [address] [place] [address] Performing Lab: [place] [facility] [address] [place] [address] CREATININE 1.04 mg/dL 0.7-1.3 UREA NITROGEN 19 mg/dL 9-25 GLUCOSE 104 mg/dL H 72-99 SODIUM 143 meq/L 136-145 POTASSIUM 4.1 meq/L 3.5-5 CHLORIDE 108 meq/L H 98-107 CARBON DIOXIDE 24 meq/L 22-31 CALCIUM 9.0 mg/dL 8.4-10.4 PROTEIN 7.7 g/dL 6-8.6 ALBUMIN 3.8 g/dL 3.4-5 TOTAL BILIRUBIN 0.9 mg/dL 0.2-1.2 ALKALINE PHOSPHATASE 106 U/L 40-150 AST/SGOT 31 U/L 5-34 ALT/SGPT 25 U/L 8-40 EGFR (CKD-EPI 2020) 75 Mar 03, 2025 09:21 AM [facility] CHOLESTEROL PANEL (PB) PLASMA Specimen Type: P LASMA No comment entered. Ordering Provider: TIFFANI SOTELO Report Released Date/Time: Mar 17, 2024 09:56 AM Reporting Lab: [place] [facility] [address] [place] [address] Performing Lab: [place] [facility] [address] [place] [address] CHOLESTEROL 127 mg/dL 0-200 TRIGLYCERIDE 106 mg/dL 0-150 CALCULATED LDL 72.3 mg/dL HDL(New) 33.5 mg/dL L >40 HDL % OF TOTAL CHOLESTEROL (PB) 26.4 >25 Mar 03, 2025 09:21 AM [facility] CBC BLOOD Specimen Type: BLOOD No comment entered. Ordering Provider: TIFFANI SOTELO Report Released Date/Time: Mar 17, 2024 09:56 AM Reporting Lab: [place] [facility] [address] [place] [address] Performing Lab: [place] [facility] [address] [place] [address] WBC 8.8 10*3/uL 3.6-11.2 RBC 4.86 10*6/uL 4.10-5.70 HGB 14.9 g/dL 13.1-16.8 HCT 44.4 38.2-48.4 MCV 91.4 fL 80.0-100.0 MCH 30.7 pg 27.0-34.0 MCHC 33.6 g/dL 33.0-36.0 PLT 374 10*3/uL 150-400 MPV 9.6 fL 7.5-11.2 RDW 14.0 11.8-15.1 LYMPHOCYTES, AUTO % 36.3 MONOCYTES, AUTO % 13.8 NEUTROPHILS, AUTO % 45.7 EOSINOPHILS, AUTO % 3.4 BASOPHILS, AUTO % 0.5 LYMPHOCYTES, ABSOLUTE 3.18 10*3/uL 0.77- 4.50 MONOCYTES, ABSOLUTE 1.21 10*3/uL H 0.19-0. 8 NEUTROPHILS, ABSOLUTE 3.99 10*3/uL 2.10- 8.00 EOSINOPHILS, ABSOLUTE 0.30 10*3/uL 0.00- 0.60 BASOPHILS, ABSOLUTE 0.04 10*3/uL 0.00-0. 20 IMMATURE GRANS, AUTO % 0.3 IMMATURE GRANS, AUTO ABS 0.03 10*3/uL 0. 00-0.05 Advance Directives: All historical and current Section Date Range: From patient's date of to the date document was created. This section includes ALL of a patient's completed or amended [place] Advance and Rescinded Directives. The entries below indicate that a directive exists for the patient, but an actual copy is not included with this document. The data comes from all [place] facilities. Date Advance Directives Provider Source May 02, 2002 ADVANCE DIRECTIVE CLAUDIA TIM [place] [facility] Encounter Notes: All associated encounter notes This section contains the clinical notes associated to the Encounter. Date/Time Encounter Note(s) Provider Source Mar 07, 2025 11:34 AM ADMINISTRATIVE NOT E: LOCAL TITLE: PHARMACY CITC ADMIN NOTE PB STANDARD TITLE: ADMINISTRATIVE NOTE DATE OF NOTE: MAR 07, 2025@11:34 ENTRY DATE: MAR 07, 2025@11:34:45 AUTHOR: LUIS ARMANDO MAXWELL COSIGNER: URGENCY: STATUS: COMPLETED [facility] Authorization Pharmacy received the prescription(s) below from a [facility] provider. A chart review showed that the authorization is . PLEASE REVIEW PATIENT HISTORY TO SEE IF CONTINUED SPECIALTY CARE IS MEDICALLY NECESSARY OR, IF APPROPRIATE, THE MEDICATION PRESCRIPTION MAY BE ASSUMED BY THE PRIMARY CARE PROVIDER. IT IS THE GOAL OF THE [place] TO RETAIN/RECLAIM PATIENT CARE WITHIN OUR HEALTHCARE SYSTEM TO THE EXTENT THAT IT IS MEDICALLY APPROPRIATE. IF SPECIALTY SERVICES ARE NEEDED, PLEASE CONSIDER IF [place] CARE IS NOW AVAILABLE FOR THE NEEDED CARE. Patient may also be referred to a PACT Clinical Pharmacist Practitioner for chronic disease state management that includes, but is not limited to, the following conditions: hypertension, diabetes, hyperlipidemia, hypothyroidism, and COPD. Our [facility] Specialty services include anticoagulation, pain management, and womens health. To refer, please alert the [facility] to this note and/or alert the [facility] to schedule this patient with our CPP clinic. --- AUTH INFO--- Medical Referral # [id number] Region: 2 Approved Date Received: 05/27/2023 Servicing Provider GOODMAN MICHAEL Standard Episode of Care: SSC_PODIATRY COMPREHENSIVE_1.1.10_REV_PR CT Start Date: 05/27/2023 End Date: 12/02/2023 If the consult is renewed, please notify pharmacy to process this prescription to prevent delays in care. Thank you. ---[facility] PRESCRIPTION INFO--- PRESCRIBER INFORMATION Name: MICHAEL TREVINO Clinic: [facility] Address: [address] [place] [address] AYAKA: [id number] [facility] Lic: [id number] Primary Phone: [phone] Fax: [phone] [employer]: Agent: RAE GAY PATIENT INFORMATION Name: MARY ROTH : 1950 Sex: MALE Primary Phone: [phone] SSN: Address: [address] [facility] [address] [place], [place] [address] eRx HT: (cm)() eRx WT: (kg)() *PRESCRIPTION INFORMATION eRx Drug: diclofenac 1 % topical gel (Voltaren Arthritis Pain) WAC: [id number] Written Date: MAR 07, 2025@16:30:43 Issue Date: Qty: 100 Days Supply: 30 Refills: 5 Code List Qualifier: Original Quantity Drug Form: Strength: Substitutions?: YES Prohibit Renewals: No eRx Si g topically four times daily for 30 days apply to single elbow, wrist or hand for hand includes palm/fingers/back of hand /delilah/ LUIS ARMANDO MAXWELL Signed: 03/07/2025 11:36 Receipt Acknowledged By: 03/08/2025 09:56 /delilah/ Tiffani Sotelo MD [facility] LUIS ARMANDO MAXWELL [facility]
[2025-03-10] VITALS (15 sets, daily range): BP systolic 108–157; BP diastolic 63–105; PULSE 56–65; RESP 15–23; TEMP 36.7–36.8; O2SAT 95–98; BMI 35.4
--- OUTSIDE RECORDS SUMMARY | 2025-03-10 04:30 | XMS_ITS | Encounter Summary ---
Author Name [facility] Organization [facility] Address [address] [place] [id number] Care Team Providers Care Intervention Specialist Name Role Phone KAREEM NINO Primary Care Provider Unavailabl e Insurance Providers: [...] PART A Jan 31, 2015 PART A [id number] [phone] SHEREE ROTH PATIENT MEDICARE (WNR) MEDICARE (M) PART A Jan 31, 2015 PART A [id number] [phone] SHEREE ROTH PATIENT Selected Encounter This section includes the information on record at [place] for the Encounter. Date/Time Encounter Type Encounter Description Reason Provider Source Mar 10, 2025 09:30 AM Outpatient Encounter PRIMARY CARE/MEDICINE KAREEM NINO Norma Encounter Template Text not used by [place] Plan of Treatment: Future Appointments (+ 6 months) and Future Tests (+/- 45 days) The Plan of Treatment section includes future care activities for the patient from all VA treatmentfacilities. This section includes future appointments and future orders which are active, pending or scheduled. Active, Pending, and Scheduled Orders This section includes a listing of several types of active, pending, and scheduled orders, including clinic medications orders, diagnostic test orders, procedure orders and consult orders; where the start date of the order is 45 days before the date of the Encounter or 45 days after the date of theEncounter. The data comes from all [place] treatment facilities. Test Date/Time Test Type Test Details Facility Name Mar 10, 2025 10:16 AM Procedure Order CP EKG PB CP MUSE EKG POP 657A4 Proc [facility] [employer] Mar 10, 2025 10:42 AM Consult Order [facility] ROOM 657A4 Cons [facility] Regulatory Officers[facility] Lab Results: +/- 30 days of the encounter This section includes the Chemistry and Hematology Lab Results on record with [facility] for the patient. Radiology Reports and Pathology Reports are provided separately, in subsequent sections. Lab Results This section contains the Chemistry/Hematology Results that were resulted 30 days before or 30 daysafter the date of the Encounter. Date/Time Source Result Type Result - Unit Interpretation Reference Range Specimen Type Comment Mar 03, 2025 09:21 AM [facility] HGA1C BLOOD Specimen Type: BLOOD No comment entered. Ordering Provider: KAREEM NINO Report Released Date/Time: Mar 17, 2024 09:56 AM Reporting Lab: [place] [facility] [address] [place] [address] Performing Lab: [place] [facility] [address] [place] [address] HGA1C 6.1 H 4.0-6.0 Mar 03, 2025 09:21 AM [facility] PROST. SPECIFIC AG.(PB-STL) SERUM Specimen Ty pe: SERUM No comment entered. Ordering Provider: KAREEM NINO Report Released Date/Time: Mar 17, 2024 09:56 AM Reporting Lab: [place] [facility] [address] [place] [address] Performing Lab: [place] [facility] [address] [place] [address] PROST. SPECIFIC AG.(PB-STL) <0.10 ng/mL L 0-4 Mar 03, 2025 09:21 AM [facility] TSH (MA-PB) SERUM Specimen Typ e: SERUM No comment entered. Ordering Provider: KAREEM NINO Report Released Date/Time: Mar 17, 2024 09:56 AM Reporting Lab: [place] [facility] [address] [place] [address] Performing Lab: [place] [facility] [address] [place] [address] TSH 0.794 u[IU]/mL 0.47-5 Mar 03, 2025 09:21 AM [facility] CHOLESTEROL PANEL (PB) PLASMA Specimen Type: P LASMA No comment entered. Ordering Provider: KAREEM NINO Report Released Date/Time: Mar 17, 2024 09:56 AM Reporting Lab: [place] [facility] [address] [place] [address] Performing Lab: [place] [facility] [address] [place] [address] CHOLESTEROL 127 mg/dL 0-200 TRIGLYCERIDE 106 mg/dL 0-150 CALCULATED LDL 72.3 mg/dL HDL(New) 33.5 mg/dL L >40 HDL % OF TOTAL CHOLESTEROL (PB) 26.4 >25 Mar 03, 2025 09:21 AM [facility] COMPREHENSIVE METABOLIC PANEL PLASMA Specimen Type: PLASMA No comment entered. Ordering Provider: KAREEM NINO Report Released Date/Time: Mar 17, 2024 09:56 AM Reporting Lab: [place] [facility] [address] [place] [address] Performing Lab: [place] [facility] [address] [place] [address] CREATININE 1.04 mg/dL 0.7-1.3 UREA NITROGEN 19 [...] 2020) 75 Mar 03, 2025 09:21 AM [facility] CBC BLOOD Specimen Type: BLOOD No comment entered. Ordering Provider: KAREEM NINO Report Released Date/Time: Mar 17, 2024 09:56 AM Reporting Lab: [place] [facility] [address] [place] [address] Performing Lab: [place] [facility] [address] [place] [facility] [address] WBC 8.8 10*3/uL 3.6-11.2 RBC 4.86 10*6/uL [...] GRANS, AUTO ABS 0.03 10*3/uL 0. 00-0.05 Vital Signs: All taken on the encounter date This section contains inpatient and outpatient Vital Signs collected on the date of the Encounter. Date/Time Temperature Pulse Blood Pressure Respiratory Rate SP02 Pain Height Weight Body Mass Index Source Mar 10, 2025 10:00 AM 98.6 F 70 /min 134/85 mm[Hg] 17 /min 95 % 0 69.0 in 247.1 lb 37 [facility] Social History: Smoking Status (Most current) and Tobacco Use (All prior to encounter date) This section includes the most current, and the historical, smoking and tobacco- related health factors from the [place] facility where the Encounter took place. Current Smoking Status This section includes the most current smoking, or tobacco-related health factor, from the [place] facility where the Encounter took place. Date/Time Current Smoking Status Comment Facil ity Mar 10, 2025 09:30 AM VA-TOBACCO NEVER USED CIGARETTES [facility] Tobacco Use History This section includes a history of the smoking, or tobacco-related health factors, that were collected on or before the date of the Encounter. The data comes from the [place] facility where the Encounter took place. Date/Time Smoking Status/Tobacco Use Comment F acility Mar 10, 2025 09:30 AM VA-TOBACCO NEVER USED OTHER TYPE [facility] Mar 17, 2024 09:00 AM VA-TOBACCO NEVER USED [facility] Nov 26, 2022 11:00 AM VA-TOBACCO NEVER USED [facility] Jan 03, 2021 01:30 PM VA-TOBACCO FORMER USER [facility] Jan 03, 2021 01:30 PM VA-TOBACCO QUIT 15 YRS OR MORE [facility] Jun 30, 2018 03:38 PM VA-TOBACCO FORMER USER [facility] Jun 30, 2018 03:38 PM VA-TOBACCO QUIT 15 YRS OR MORE [facility] Apr 07, 2018 01:43 PM QUIT TOBACCO >7 YEARS AGO [facility] Jul 10, 2011 01:47 PM LIFETIME NON-USER OF TOBACCO [facility] Advance Directives: All historical and current Section Date Range: From patient's date of to the date document was created. This section includes ALL of a patient's completed or amended [place] Advance and Rescinded Directives. The entries below indicate that a directive exists for the patient, but an actual copy is not included with this document. The data comes from all [place] facilities. Date Advance Directives Provider Source May 02, 2002 ADVANCE DIRECTIVE CLAUDIA TIM IS [place] [facility] Encounter Notes: All associated encounter notes This section contains the clinical notes associated to the Encounter. Date/Time Encounter Note(s) Provider Source Mar 10, 2025 09:38 AM PRIMARY CARE NURSI KRIS NOTE: LOCAL TITLE: PRIMARY CARE NURSING PROGRESS NOTE (TEXT) NURSING P STANDARD TITLE: PRIMARY CARE NURSING NOTE DATE OF NOTE: MAR 10, 2025@09:38 ENTRY DATE: MAR 10, 2025@09:40:22 AUTHOR: MARYAN ROSSIGNER: URGENCY: STATUS: COMPLETED Established Patient MARY ROTH IS A 75 YEAR OLD MALE BEING SEEN IN CLINIC MAR 10, 2025. == == REASON FOR VISIT: here for yearly health exam, left arm and chest pain intermmitten, dizziness at times, general fatigue Are you receiving care any where other than the [facility]? No HEALTH AND SURGICAL HISTORY: Does patient report using home oxygen? No CURRENT ACTIVE MEDICATIONS FOR REVIEW: If the list for review does not include a component, then it was not applicable to this patient. Allergies/ADRs (Tool #5) FACILITY ALLERGY/ADR -------- No Remote Allergy/ADR Data available for this patient [facility] BEE STINGS [facility] CODEINE [facility] MORPHINE [facility] SIMVASTATIN Med. Reconciliation (Tool #1) INCLUDED IN THIS LIST: Alphabetical list of active outpatient prescriptions dispensed from this [place] (local) and dispensed from another VA or DoD facility (remote) as well as inpatient orders (local pending and active), local clinic medications, locally documented non-VA medications, and local prescriptions that have or been discontinued in the past 90 days. Non-VA Meds Last Documented On: Jun 30, 2018 NOTE The display of VA prescriptions dispensed from another VA or DoD facility (remote) is limited to active outpatient prescription entries matched to National Drug File at the originating site and may not include some items such as investigational drugs, compounds, etc. NOT INCLUDED IN THIS LIST: Medications self-entered by the patient into personal health records (i.e. [employer]) are NOT included in this list. Non-VA medications documented outside this [place], remote inpatient orders (regardless of status) and remote clinic medications are NOT included in this list. The patient and provider must always discuss medications the patient is taking, regardless of where the medication was dispensed or obtained. OUTPT ATORVASTATIN CALCIUM 40MG TAB (Status = Discontinued) TAKE ONE TABLET BY MOUTH AT BEDTIME Rx# [id number] Last Released: 11/04/24 Qty/Days Supply: Rx Expiration Date: 02/01/25 Refills Remainin OUTPT ATORVASTATIN CALCIUM 40MG TAB (Status = Active) TAKE ONE TABLET BY MOUTH AT BEDTIME Rx# [id number] Last Released: 02/02/25 Qty/Days Supply: Rx Expiration Date: 04/30/25 Refills Remainin OUTPT CETIRIZINE HCL 10MG TAB (Status = Discontinued) TAKE ONE TABLET BY MOUTH ONCE A DAY FOR ALLERGY SYMPTOMS Rx# [id number] Last Released: 11/21/24 Qty/Days Supply: Rx Expiration Date: 03/18/25 Refills Remainin Indication: FOR ALLERGY SYMPTOMS OUTPT CETIRIZINE HCL 10MG TAB (Status = Active) TAKE ONE TABLET BY MOUTH ONCE A DAY FOR ALLERGY SYMPTOMS Rx# [id number] Last Released: 02/17/25 Qty/Days Supply: Rx Expiration Date: 01/31/26 Refills Remainin Indication: FOR ALLERGY SYMPTOMS OUTPT DICLOFENAC NA 1% TOP GEL (Status = Active) APPLY 4 GM TO AFFECTED AREA(S) FOUR TIMES A DAY FOR PAIN NO MORE THAN 16 GM/DAY TO ANY LOWER EXTREMITY JOINT. NO MORE THAN 8 GM/DAY TO ANY UPPER EXTREMITY JOINT. MAX 32GM/DAY OVER ALL JOINTS.(MEASURE DOSE WITH RULER INSIDE BOX) Rx# [id number] Last Released: Qt/Days Supply: 300/ Rx Expiration Date: 03/09/26 Refills Remainin Indication: FOR PAIN OUTPT DIVALPROEX 250MG 24HR (ER) SA TAB (Status = Active) TAKE ONE TABLET BY MOUTH EVERY MORNING AND TAKE TWO TABLETS EVERY EVENING MIGRAINES Rx# [id number] Last Released: 02/02/25 Qty/Days Supply: 270/90 Rx Expiration Date: 07/15/25 Refills Remainin Indication: MIGRAINES OUTPT LISINOPRIL 10MG TAB (Status = Active) TAKE ONE TABLET BY MOUTH ONCE A DAY FOR HIGH BLOOD PRESSURE Rx# [id number] Last Released: 02/01/25 Qty/Days Supply: Rx Expiration Date: 08/16/25 Refills Remainin Indication: FOR HIGH BLOOD PRESSURE OUTPT MONTELUKAST NA 10MG TAB (Status = Discontinued) TAKE ONE TABLET BY MOUTH AT BEDTIME Rx# [id number] Last Released: 11/04/24 Qty/Days Supply: 90 Rx Expiration Date: 02/01/25 Refills Remainin OUTPT MONTELUKAST NA 10MG TAB (Status = Active) TAKE ONE TABLET BY MOUTH AT BEDTIME Rx# [id number] Last Released: 02/01/25 Qty/Days Supply: Rx Expiration Date: 04/30/25 Refills Remainin SUPPLIES OUTPT ADHESIVE REMOVER WIPE H#6078 (Status = Active) USE/APPLY 1 WIPE TO AFFECTED AREA(S) ONCE A DAY FOR ADHESIVE REMOVAL (EXTERNAL USE ONLY) Rx# [id number] Last Released: 12/28/24 Qty/Days Supply: 100/90 Rx Expiration Date: 09/07/25 Refills Remainin Indication: FOR ADHESIVE REMOVAL OUTPT BAG,UROSTOMY NIGHT 2L COLOPLAST #32880 (Status = Active) USE BAG ONCE A DAY Rx# [id number] Last Released: 02/01/25 Qty/Days Supply: Rx Expiration Date: 11/11/25 Refills Remainin OUTPT BARRIER,BRAVA STRIPS C#219131 (Status = Discontinued) USE STRIP STOMA EVERY WEEK Rx# [id number] Last Released: 12/12/24 Qty/Days Supply: Rx Expiration Date: 12/09/25 Refills Remainin OUTPT BARRIER,BRAVA STRIPS C#872727 (Status = Discontinued) USE STRIP STOMA EVERY WEEK Rx# [id number] Last Released: 02/01/25 Qty/Days Supply: Rx Expiration Date: 01/31/26 Refills Remainin OUTPT BARRIER,BRAVA STRIPS C#127772 (Status = Active) USE STRIP STOMA EVERY WEEK Rx# [id number] Last Released: 02/15/25 Qty/Days Supply: 40 Rx Expiration Date: 02/10/26 Refills Remainin OUTPT GLOVE VINYL MEDIUM PWDR-FREE NONSTERILE (Status = ) USE GLOVE TO AFFECTED AREA(S) ONCE A DAY FOR INFECTION PREVENTION Rx# [id number] Last Released: 07/18/24 Qty/Days Supply: 100/90 Rx Expiration Date: 02/08/25 Refills Remainin Indication: FOR INFECTION PREVENTION OUTPT POUCH,UROSTOMY SENSURA COLOPLAST #36706 (Status = ) USE POUCH STOMA 4XWEEK FOR OSTOMY Rx# [id number] Last Released: 12/19/24 Qty/Days Supply: Rx Expiration Date: 01/05/25 Refills Remainin Indication: FOR OSTOMY OUTPT SKIN PREP,NO STING WIPE (Status = Active) USE/APPLY 1 PAD TO AFFECTED AREA(S) ONCE A DAY Rx# [id number] Last Released: 11/14/24 Qty/Days Supply: 150/30 Rx Expiration Date: 11/11/25 Refills Remainin OUTPT TAPE,HYPAFIX 2IN X 10YD U#4209 (Status = Active) USE/APPLY TAPE TO AFFECTED AREA(S) NEEDED FOR WOUND CARE (EXTERNAL USE ONLY) Rx# [id number] Last Released: 01/13/25 Qty/Days Supply: Rx Expiration Date: 11/11/25 Refills Remainin Indication: FOR WOUND CARE PHARMACY TERMS AND POSSIBLE PATIENT ACTIONS INPT = AR inpatient order IV = AR intravenous medication OUTPT = AR outpatient prescription PHARMACY POSSIBLE PATIENT TERMS EXPLANATION ACTIONS -------- ----- ACTIVE A prescription that can be If you have refills, filled at the local [place] pharmacy. you may request a refill of this prescription from your [place] pharmacy. CLINIC A medication you received during If you have questions a visit to a AR clinic or about this medication emergency department. contact your VA healthcare team. DISCONTINUED A prescription your provider has Contact your VA stopped. It is no longer healthcare team if you available to be sent to you or need more of this picked up at the AR pharmacy medication. window. A prescription which is [...] the VA. Or, it may be an kvxt-ujt-rvookwk (OTC), herbal, dietary supplements or sample medication. [...] before this medication now. you run out. Medication list reviewed with Patient Patient/Caregiver reports taking medications as ordered. IS PATIENT TAKING ANY OVER THE COUNTER MEDICATIONS, SUCH VITAMINS OR HERBAL SUPPLEMENTS, INCLUDING ANY MEDICATIONS PRESCRIBED BY ANOTHER PHYSICIAN? No Does patient have any new allergies to report since last visit? NO VITALS: TEMPERATURE: 98.4 F [36.9 C] (03/17/2024 09:08) BP: 130/80 (03/17/2024 09:15) RESP: 18 (03/17/2024 09:08) PULSE: 66 (03/17/2024 09:08) HT: 69.0 in [175.3 cm] (03/17/2024 09:08) WT: 239.0 lb [108.41 kg] (03/17/2024 09:08) BMI: 35.4 PAIN ASSESSMENT: (Most Recent Pain Score in Vitals Package: 0 (03/17/2024 09:08) ) The patient indicated that they and [...] Now let us serve you. At the [facility], we strive to provide you with exceptional [...] Not At All SPIRITUAL ASSESSMENT: Are there restorationist practices or spiritual concerns you want the decontamination worker, your physician, and other health care team members to immediately know about? No Patient advised to call the clinic for any concerns, questions, or symptoms. Patient and/or caregiver verbalized understanding of plan of care. Frail/Elderly Screen: ADL Screen - Richter Index of [place] in Activities of Daily Living Bathing: (3 Points) Receives no assistance (gets in and out of tub by self, if tub is usual means of bathing) Dressing: (3 Points) Gets clothes and gets completely dressed without assistance. Toileting: (3 Points) Goes to toilet room , cleans self, and arranges clothes without assistance (may use object for support such as cane, walker, or wheelchair, and may manage own night bedpan or commode, emptying same next morning) Transferring: (3 Points) Moves in and out of bed and in and out of chair without assistance (may be using object for support, such as cane or walker) Continence: (3 Points) Controls urination and bowel movement completely by self Feeding: (3 Points) Feeds self without assistance Total Score: 18 Points 18 = High (patient independent) 6 = Low (patient very dependent) IADL Screen - [place] Instrumental Activities of Daily Living Scale Ability to use telephone: (1 point) Dials a few well-known numbers. Shopping: (1 point) Takes care of all shopping needs independently. Food preparation: (1 point) Plans, prepares, and serves adequate meals independently. Housekeeping: (1 point) Performs light daily tasks such as dishwashing, bed making. Laundry: (1 point) Does personal laundry completely. Mode of transportation: (1 point) Travels independently on public transportation or drives own car. Responsibility for own medications: (1 point) Is responsible for taking medications in correct dosages at correct times. Ability to handle finances: (1 point) Manages financial matters independently (budgets, writes checks, pays rent and bills, goes to bank); collects and keeps track of income. Total score: 8 points 8 = High function, independent 0 = Low function, dependent Falls Screen: No falls within the past 12 months. Incontinence Screen: No incontinence. Suicide Screen - V: C-SSRS Screening [place] Suicide Severity Rating Scale (C-SSRS) screener 1. Over the past month, have you [...] due to responses to other questions. Sexual Orientation - CP,L,N,P,PH,PS,S,U: The patient thinks of their sexual orientation as: Straight or Heterosexual RHS Screen - VS: RHS Screen Environmental Check Screening was not completed at this time due to: Another adult present Alcohol Use Screen (AUDIT-C) - V: Alcohol Screen: SCREEN FOR ALCOHOL (AUDIT-C) An [...] required due to responses to other questions. Tobacco Use Screening - AT,DE,L,M,N,P,PH,PS,RT,S,U: The patient has never smoked cigarettes. The patient has never used other types of tobacco. Depression Screening - V: Perform PHQ-2 A PHQ-2 screen was performed. The score was 0 which is a negative screen for depression. Over the past two weeks, how often have you been bothered by the following problems? 1. Little interest or pleasure in doing things Not at all 2. Feeling down, depressed, or hopeless Not at all Advanced Directive Screen/Compliance Advisor: ADVANCE DIRECTIVE SCREENING: I asked if the patient has an advance directive, and determined that: Patient does not have an Advance Directive. Patient was given form to update and return when completed. ADVANCE DIRECTIVE NOTIFICATION I provided the patient with written notification about advance directives. Level of understanding: Pain Assessment: - PAIN ASSESSMENT: .. Patient reports no pain at this visit. Pain Score = 0. Patient's self identified pain goal: 0 Weight Control/Nutrition Counseling: * The patient received the following counseling at this encounter: [facility] - PHP MAP: PERSONAL HEALTH PLAN INVENTORY & MAP Cutler's Response: god /delilah/ HÉCTOR REED Signed: 03/10/2025 10:59 MARYAN ROSS [facility]
--- OUTSIDE RECORDS SUMMARY | 2025-03-10 06:06 | XMS_ITS | Continuity of Care Document ---
Author Name [facility] Organization [facility] Care Team Providers Care Doctor Chiropractic Name Role Phone [facility] Unavailable Unavailable Problems Combined list of problems from Department of Defense and Veterans Affairs facilities. It does not include entries that were removed or entered in error. Problem Status Onset Date Problem Type Date of Resolution Comments Source Allergic Rhinitis (SCT 08527228) Active Condition [place] [facility] Allergy to bee venom Active Condition [place] [facility] Bilateral tinnitus Active Condition [place] [facility] Bladder cancer Active Condition Jul 032021 Entered By: KAREEM NINO Comment: currently under chemotherapy for [place] [facility] BPH - Benign prostatic hypertrophy Active Condition [place] [facility] ELLIS - Headache (SNOMED CT 48064024) Active Condition [place] [facility] HLD - Hyperlipidemia (SNOMED CT 14671107) Active Condition [place] [facility] HTN - Hypertension (SNOMED CT 41600074) Active Condition [place] [facility] Low back pain (SNOMED CT 309492510) Active Condition [place] [facility] 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 Prediabetes (SCT 777817109) Active Condition [place] [facility] Sensorineural hearing loss of bilateral ears Active Condition [place] [facility] Abdominal aortic aneurysm Inactive Condition 04/01/2021 [facility] Laboratory Examination Ordered as part of a Routine General Medical Examination Inactive Condition 08/22/2016 [facility] Lipoma of other skin and subcutaneous tissue (ICD-9-CM 214.1) Inactive Condition 08/22/2016 [facility] Microscopic hematuria Inactive Condition 08/22/2016 [facility] Routine General Medical Examination at a Health Care Facility * (ICD-9-CM V70.0) Inactive Condition 08/22/2016 [place] [facility] Sinusitis * (ICD-9-CM 473.9) Inactive Condition 08/22/2016 [facility] Urinary hesitancy Inactive Condition 08/22/2016 [facility] VACCIN FOR INFLUENZA Inactive Condition 08/22/2016 [facility] VACCINATION FOR TD-DT - Tetanus-diphtheri a [td] [dt] (ICD-9-CM V06.5) Inactive Condition 01/07/2021 [facility] Vision, Subnormal * Inactive Condition 08/22/2016 [facility] Diagnosis: ICD-10-CM Z23 Encounter for immunization Active Diagnosis [facility] Diagnosis: ICD-10-CM I10 Essential (primary) hypertension Active Diagnosis [facility] Diagnosis: ICD-10-CM Z46.1 Encounter for fitting and adjustment of hearing aid Active Diagnosis [facility] Diagnosis: ICD-10-CM H90.3 Sensorineural hearing loss, bilateral Active Diagnosis [facility] Diagnosis: ICD-10-CM H61.23 Impacted cerumen, bilateral Active Diagnosis [facility] Diagnosis: ICD-10-CM 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 Medication Details Route Status Patient Instructions Prescription Expires Prescription Number Last Dispense Date Ordering Provider Order Date Order Qty Source APAP 325MG/BUTAL BITAL 50MG/CAFN 40MG TAB TAKE 1 TABLET BY MOUTH EVERY 6 HOURS NEEDED FOR HEADACHE CAUTION: DO NOT EXCEED 4000MG/D AY TOTAL OF ACETAMIN OPHEN (APAP). ORAL 10/30/2024 [id number] TRUNG, KAREEM [address] [place] [address] [place] [facility] APAP 325MG/BUTAL BITAL 50MG/CAFN 40MG TAB TAKE 1 TABLET BY MOUTH EVERY 6 HOURS NEEDED FOR HEADACHE CAUTION: DO NOT EXCEED 4000MG/D AY TOTAL OF ACETAMIN OPHEN (APAP). ORAL 02/26/2024 [id number] TRUNG, KAREEM [address] [place] [address] [place] [facility] ATORVASTATI N CA 40MG TAB TAKE ONE TABLET BY MOUTH AT BEDTIME ORAL ACTIVE 04/30/2025 [id number] 5 TRUNG, KAREEM [address] [place] [address] [facility] ATORVASTATI N CA 40MG TAB TAKE ONE TABLET BY MOUTH AT BEDTIME ORAL DISCONT INUED 02/01/2025 [id number] 5 TRUNG, KAREEM [address] [place] [address] [facility] ATORVASTATI N CA 40MG TAB TAKE ONE TABLET BY MOUTH AT BEDTIME ORAL DISCONT INUED 10/14/2024 [id number] 5 TRUNG, KAREEM [address] [place] [address] [facility] ATORVASTATI N CA 40MG TAB TAKE ONE TABLET BY MOUTH AT BEDTIME ORAL DISCONT INUED 09/12/2024 [id number] 4 TRUNG, KAREEM [address] [place] [address] [facility] ATORVASTATI N CA 40MG TAB TAKE ONE TABLET BY MOUTH AT BEDTIME ORAL DISCONT INUED 07/09/2024 [id number] 4 TRUNG, KAREEM [address] [place] [address] [facility] ATORVASTATI N CA 40MG TAB TAKE ONE TABLET BY MOUTH AT BEDTIME ORAL DISCONT INUED 03/27/2024 [id number] 4 TRUNG, KAREEM [address] [place] [address] [facility] ATORVASTATI N CA 40MG TAB TAKE ONE TABLET BY MOUTH AT BEDTIME ORAL DISCONT INUED 12/28/2023 [id number] 4 [facility] 2023 60 [facility] CETIRIZINE HCL 10MG TAB TAKE ONE TABLET BY MOUTH ONCE A DAY FOR ALLERGY SYMPTOMS ORAL ACTIVE 01/31/2026 [id number] 5 TRUNG, KAREEM 2024 90 [facility] CETIRIZINE HCL 10MG TAB TAKE ONE TABLET BY MOUTH ONCE A DAY FOR ALLERGY SYMPTOMS ORAL DISCONT INUED 03/18/2025 [id number] 5 [facility] 2023 90 [facility] DICLOFENAC NA 1% GEL,TOP APPLY 4 GM TO AFFECTED AREA(S) FOUR TIMES A DAY FOR PAIN NO MORE THAN 16 GM/DAY TO ANY LOWER EXTREMIT Y JOINT. NO MORE THAN 8 GM/DAY TO ANY UPPER EXTREMIT Y JOINT. MAX 32GM/DAY OVER ALL JOINTS.( MEASURE DOSE WITH RULER INSIDE BOX) TOPICA L ACTIVE 03/09/2026 [id number] 5 [facility] 2024 300 [facility] DIVALPROEX NA 250MG TAB,SA TAKE ONE TABLET BY MOUTH EVERY MORNING AND TAKE TWO TABLETS EVERY EVENING MIGRAINE S ORAL ACTIVE 07/15/2025 [id number] 5 [facility] KAREEM [address] [place] [address] [facility] DIVALPROEX NA 250MG TAB,SA TAKE ONE TABLET BY MOUTH EVERY MORNING AND TAKE TWO TABLETS EVERY EVENING MIGRAINE S ORAL DISCONT INUED 05/26/2024 [id number] 4 [facility] 2022 270 [facility] FLUTICASONE PROPIONATE 50MCG/SPRAY SOLN,NASAL, 16GM INSTILL 2 SPRAYS IN EACH NOSTRIL ONCE A DAY FOR ALLERGIE S NEEDED (MUST BE USED DIRECTED FOR MINIMUM OF 21 DAYS TO PROVIDE ADEQUATE BENEFITS ) NASAL 11/04/2024 [id number] 5 [facility] KAREEM 2023 3 [facility] LISINOPRIL 10MG TAB TAKE ONE TABLET BY MOUTH ONCE A DAY FOR HIGH BLOOD PRESSURE ORAL ACTIVE 08/16/2025 [id number] 5 TRUNG, KAREEM [address] [place] [address] [facility] LISINOPRIL 10MG TAB TAKE ONE TABLET BY MOUTH ONCE A DAY FOR HIGH BLOOD PRESSURE ORAL DISCONT INUED 10/29/2024 [id number] 5 TRUNG, KAREEM [address] [place] [address] [facility] MONTELUKAST NA 10MG TAB TAKE ONE TABLET BY MOUTH AT BEDTIME ORAL ACTIVE 04/30/2025 [id number] 5 TRUNG, KAREEM [address] [place] [address] [facility] MONTELUKAST NA 10MG TAB TAKE ONE TABLET BY MOUTH AT BEDTIME ORAL DISCONT INUED 02/01/2025 [id number] 5 TRUNG, KAREEM [address] [place] [address] [facility] MONTELUKAST NA 10MG TAB TAKE ONE TABLET BY MOUTH AT BEDTIME ORAL DISCONT INUED 10/14/2024 [id number] 5 TRUNG, KAREEM [address] [place] [address] [facility] MONTELUKAST NA 10MG TAB TAKE ONE TABLET BY MOUTH AT BEDTIME ORAL DISCONT INUED 09/12/2024 [id number] 4 TRUNG, KAREEM [address] [place] [address] [facility] MONTELUKAST NA 10MG TAB TAKE ONE TABLET BY MOUTH AT BEDTIME ORAL DISCONT INUED 07/09/2024 [id number] 4 TRUNG, KAREEM [address] [place] [address] [facility] MONTELUKAST NA 10MG TAB TAKE ONE TABLET BY MOUTH AT BEDTIME ORAL DISCONT INUED 03/27/2024 [id number] 4 TRUNG, KAREEM [address] [place] [address] [facility] MONTELUKAST NA 10MG TAB TAKE ONE TABLET BY MOUTH AT BEDTIME ORAL DISCONT INUED 12/28/2023 [id number] 4 TRUNG, KAREEM [address] [place] [address] [facility] Allergies, Adverse Reactions, Alerts Combined list of allergies from Department of Defense and Veterans Affairs facilities. It does not include entries that were removed or entered in error. Substance Category Reaction Severity Reaction type Status Date Reported Comments Source BEE STINGS Propensity to adverse reaction (finding) Pharyngeal swelling active 6 [facility] CODEINE Propensity to adverse reactions to drug (finding) active 2 [facility] MORPHINE Propensity to adverse reactions to drug (finding) active 2 [facility] SIMVASTATIN Propensity to adverse reactions to drug (finding) Muscle pain active 2 [facility] Immunizations Combined list of available immunizations from the Department of Defense and Veterans Affairs facilities. Immunization Series Date Given Administered By Site Reaction Lot Number CVX Code Drug [employer] Supervisor Status Comments Source INFLUENZA, HIGH-DOSE, TRIVALENT, PF 2023 XIAO BELL LEFT DELTO ID [id number] 135 complet ed [facility] INFLUENZA, INJECTABLE, QUADRIVALENT, PRESERVATIVE FREE 2022 DANY ADHIKARI LEFT DELTO ID [id number] 150 complet ed [facility] TDAP 2022 JULIOCESAR ROSS LEFT DELTO ID [id number] 115 complet ed [facility] INFLUENZA, INJECTABLE, QUADRIVALENT 1 2021 158 complet ed HISTORICA L INFORMATI ON - FROM OTHER [facility] COVID-19 (MODERNA), MRNA, LNP-S, PF, 100 MCG/0.5ML DOSE OR 50 MCG/0.25ML DOSE 1 2020 207 complet ed HISTORICA L INFORMATI ON - FROM OTHER [facility] INFLUENZA, INJECTABLE, QUADRIVALENT, PRESERVATIVE FREE 2019 150 complet ed [facility] ZOSTER RECOMBINANT 2 2019 187 complet ed [facility] ZOSTER RECOMBINANT 1 2018 187 complet ed [facility] INFLUENZA, INJECTABLE, QUADRIVALENT, PRESERVATIVE FREE 2018 150 complet ed [facility] PNEUMOCOCCAL POLYSACCHARID E [id number] 2017 33 complet ed [facility] INFLUENZA, INJECTABLE, QUADRIVALENT, PRESERVATIVE FREE 2017 150 complet ed [facility] INFLUENZA, SEASONAL, INJECTABLE, PRESERVATIVE FREE 2016 140 complet ed Left Deltoid [facility] INFLUENZA, SEASONAL, INJECTABLE, PRESERVATIVE FREE 2015 140 complet ed [facility] INFLUENZA, SEASONAL, INJECTABLE, PRESERVATIVE FREE 2014 140 complet ed [facility] PNEUMOCOCCAL CONJUGATE PCV 13 2014 133 complet ed [facility] ZOSTER LIVE 2013 121 complet ed [place] [facility] INFLUENZA, SEASONAL, INJECTABLE, PRESERVATIVE FREE 2013 140 complet ed [facility] INFLUENZA, UNSPECIFIED FORMULATION 2012 88 complet ed [facility] TDAP 2012 115 complet ed Right Deltoid [facility] INFLUENZA, UNSPECIFIED FORMULATION 2011 88 complet ed [facility] INFLUENZA, UNSPECIFIED FORMULATION 2010 88 complet ed [facility] HEP A-HEP B 1 2005 104 complet ed HISTORICA L INFORMATI ON - FROM OTHER REGISTRY, [facility] TD (ADULT), 2 LF TETANUS TOXOID, PRESERVATIVE FREE, ADSORBED 1 2005 09 complet ed HISTORICA L INFORMATI ON - FROM OTHER REGISTRY, [facility] Results Combined list of recent chemistry, hematology and other laboratory results from Department of Defense and Veterans Affairs, ranging from 15 months to all on record, depending upon the facility. Order Name Results Value Reference Range Date Interpretation Specimen Comments Source HGA1C HEMOGLOBIN A1C/HEMOGLOBI N.TOTAL IN BLOOD 6.1 4.0 - 6.0 03/03 H Specimen Type: BLOOD No comment entered. Ordering Provider: KAREEM NINO Report Released Date/Time : Mar 17, 2024 09:56 AM Reporting Lab: [place] [facility] [address] [place] [address] Performin g Lab: [place] [facility] [address] [place] [address] [place] [facility] PROST. SPECIFIC AG.(PB-STL) PROSTATE SPECIFIC AG [MASS/VOLUME] IN SERUM OR PLASMA <0.10n g/mL 0 - 4 03/03 L Specimen Type: SERUM No comment entered. Ordering Provider: KAREEM NINO Report Released Date/Time : Mar 17, 2024 09:56 AM Reporting Lab: [place] [facility] [address] [place] [address] Performin g Lab: [place] [facility] [address] [place] [address] [facility] TSH (MA-PB) THYROTROPIN [UNITS/VOLUME ] IN SERUM OR PLASMA 0.794 u[IU]/ mL 0.47 - 5 03/03 Specimen Type: SERUM No comment entered. Ordering Provider: KAREEM NINO Report Released Date/Time : Mar 17, 2024 09:56 AM Reporting Lab: [place] [facility] [address] [place] [address] Performin g Lab: [place] [facility] [address] [place] [address] [facility] CHOLESTEROL PANEL (PB) CHOLESTEROL [MASS/VOLUME] IN SERUM OR PLASMA 127 mg/dL 0 - 200 03/03 Specimen Type: PLASMA No comment entered. Ordering Provider: KAREEM NINO Report Released Date/Time : Mar 17, 2024 09:56 AM Reporting Lab: [place] [facility] [address] [place] [address] Performin g Lab: [place] [facility] [address] [place] [address] [facility] CHOLESTEROL PANEL (PB) TRIGLYCERIDE [MASS/VOLUME] IN SERUM OR PLASMA 106 mg/dL 0 - 150 03/03 Specimen Type: PLASMA No comment entered. Ordering Provider: KAREEM NINO Report Released Date/Time : Mar 17, 2024 09:56 AM Reporting Lab: [place] [facility] [address] [place] [address] Performin g Lab: [place] [facility] [address] [place] [address] [facility] CHOLESTEROL PANEL (PB) CHOLESTEROL IN LDL [MASS/VOLUME] IN SERUM OR PLASMA BY CALCULATION 72.3 mg/dL 03/03 Specimen Type: PLASMA No comment entered. Ordering Provider: KAREEM NINO Report Released Date/Time : Mar 17, 2024 09:56 AM Reporting Lab: [place] [facility] [address] [place] [address] Performin g Lab: [place] [facility] [address] [place] [address] [facility] CHOLESTEROL PANEL (PB) CHOLESTEROL IN HDL [MASS/VOLUME] IN SERUM OR PLASMA 33.5 mg/dL 40 03/03 L Specimen Type: PLASMA No comment entered. Ordering Provider: KAREEM NINO Report Released Date/Time : Mar 17, 2024 09:56 AM Reporting Lab: [place] [facility] [address] [place] [address] Performin g Lab: [place] [facility] [address] [place] [address] [facility] CHOLESTEROL PANEL (PB) CHOLESTEROL IN HDL/CHOLESTER OL.TOTAL [MASS RATIO] IN SERUM OR PLASMA 26.4 25 03/03 Specimen Type: PLASMA No comment entered. Ordering Provider: KAREEM NINO Report Released Date/Time : Mar 17, 2024 09:56 AM Reporting Lab: [place] [facility] [address] [place] [address] Performin g Lab: [place] [facility] [address] [place] [address] [facility] COMPREHENSI VE METABOLIC PANEL CREATININE [MASS/VOLUME] IN SERUM OR PLASMA 1.04 mg/dL 0.7 - 1.3 03/03 Specimen Type: PLASMA No comment entered. Ordering Provider: KAREEM NINO Report Released Date/Time : Mar 17, 2024 09:56 AM Reporting Lab: [place] [facility] [address] [place] [address] Performin g Lab: [place] [facility] [address] [place] [address] [place] [facility] COMPREHENSI VE METABOLIC PANEL UREA NITROGEN [MASS/VOLUME] IN SERUM OR PLASMA 19 mg/dL 9 - 25 03/03 Specimen Type: PLASMA No comment entered. Ordering Provider: KAREEM NINO Report Released Date/Time : Mar 17, 2024 09:56 AM Reporting Lab: [place] [facility] [address] [place] [address] Performin g Lab: [place] [facility] [address] [place] [address] [facility] COMPREHENSI VE METABOLIC PANEL GLUCOSE [MASS/VOLUME] IN SERUM OR PLASMA 104 mg/dL 72 - 99 03/03 H Specimen Type: PLASMA No comment entered. Ordering Provider: KAREEM NINO Report Released Date/Time : Mar 17, 2024 09:56 AM Reporting Lab: [place] [facility] [address] [place] [address] Performin g Lab: [place] [facility] [address] [place] [address] [facility] COMPREHENSI VE METABOLIC PANEL SODIUM [MOLES/VOLUME ] IN SERUM OR PLASMA 143 meq/L 136 - 145 03/03 Specimen Type: PLASMA No comment entered. Ordering Provider: KAREEM NINO Report Released Date/Time : Mar 17, 2024 09:56 AM Reporting Lab: [place] [facility] [address] [place] [address] Performin g Lab: [place] [facility] [address] [place] [address] [facility] COMPREHENSI VE METABOLIC PANEL POTASSIUM [MOLES/VOLUME ] IN SERUM OR PLASMA 4.1 meq/L 3.5 - 5 03/03 Specimen Type: PLASMA No comment entered. Ordering Provider: KAREEM NINO Report Released Date/Time : Mar 17, 2024 09:56 AM Reporting Lab: [place] [facility] [address] [place] [address] Performin g Lab: [place] [facility] [address] [place] [address] [facility] [place] [facility] COMPREHENSI VE METABOLIC PANEL CHLORIDE [MOLES/VOLUME ] IN SERUM OR PLASMA 108 meq/L 98 - 107 03/03 H Specimen Type: PLASMA No comment entered. Ordering Provider: KAREEM NINO Report Released Date/Time : Mar 17, 2024 09:56 AM Reporting Lab: [place] [facility] [address] [place] [address] Performin g Lab: [place] [facility] [address] [place] [address] [facility] [place] [facility] COMPREHENSI VE METABOLIC PANEL CARBON DIOXIDE, TOTAL [MOLES/VOLUME ] IN SERUM OR PLASMA 24 meq/L 22 - 31 03/03 Specimen Type: PLASMA No comment entered. Ordering Provider: KAREEM NINO Report Released Date/Time : Mar 17, 2024 09:56 AM Reporting Lab: [place] [facility] [address] [place] [address] Performin g Lab: [place] [facility] [address] [place] [address] [facility] COMPREHENSI VE METABOLIC PANEL CALCIUM [MASS/VOLUME] IN SERUM OR PLASMA 9.0 mg/dL 8.4 - 10.4 03/03 Specimen Type: PLASMA No comment entered. Ordering Provider: KAREEM NINO Report Released Date/Time : Mar 17, 2024 09:56 AM Reporting Lab: [place] [facility] [address] [place] [address] Performin g Lab: [place] [facility] [address] [place] [address] [facility] COMPREHENSI VE METABOLIC PANEL PROTEIN [MASS/VOLUME] IN SERUM OR PLASMA 7.7 g/dL 6 - 8.6 03/03 Specimen Type: PLASMA No comment entered. Ordering Provider: KAREEM NINO Report Released Date/Time : Mar 17, 2024 09:56 AM Reporting Lab: [place] [facility] [address] [place] [address] Performin g Lab: [place] [facility] [address] [place] [address] [facility] [place] [facility] COMPREHENSI VE METABOLIC PANEL ALBUMIN [MASS/VOLUME] IN SERUM OR PLASMA 3.8 g/dL 3.4 - 5 03/03 Specimen Type: PLASMA No comment entered. Ordering Provider: KAREEM NINO Report Released Date/Time : Mar 17, 2024 09:56 AM Reporting Lab: [place] [facility] [address] [place] [address] Performin g Lab: [place] [facility] [address] [place] [address] [facility] COMPREHENSI VE METABOLIC PANEL BILIRUBIN.TOT AL [MASS/VOLUME] IN SERUM OR PLASMA 0.9 mg/dL 0.2 - 1.2 03/03 Specimen Type: PLASMA No comment entered. Ordering Provider: KAREEM NINO Report Released Date/Time : Mar 17, 2024 09:56 AM Reporting Lab: [place] [facility] [address] [place] [address] Performin g Lab: [place] [facility] [address] [place] [address] [facility] COMPREHENSI VE METABOLIC PANEL ALKALINE PHOSPHATASE [ENZYMATIC ACTIVITY/VOLU ME] IN SERUM OR PLASMA 106 U/L 40 - 150 03/03 Specimen Type: PLASMA No comment entered. Ordering Provider: KAREEM NINO Report Released Date/Time : Mar 17, 2024 09:56 AM Reporting Lab: [place] [facility] [address] [place] [address] Performin g Lab: [place] [facility] [address] [place] [address] [facility] COMPREHENSI VE METABOLIC PANEL ASPARTATE AMINOTRANSFER ASE [ENZYMATIC ACTIVITY/VOLU ME] IN SERUM OR PLASMA 31 U/L 5 - 34 03/03 Specimen Type: PLASMA No comment entered. Ordering Provider: KAREEM NINO Report Released Date/Time : Mar 17, 2024 09:56 AM Reporting Lab: [place] [facility] [address] [place] [address] Performin g Lab: [place] [facility] [address] [place] [address] [facility] COMPREHENSI VE METABOLIC PANEL ALANINE AMINOTRANSFER ASE [ENZYMATIC ACTIVITY/VOLU ME] IN SERUM OR PLASMA 25 U/L 8 - 40 03/03 Specimen Type: PLASMA No comment entered. Ordering Provider: KAREEM NINO Report Released Date/Time : Mar 17, 2024 09:56 AM Reporting Lab: [place] [facility] [address] [place] [address] Performin g Lab: [place] [facility] [address] [place] [address] [facility] COMPREHENSI VE METABOLIC PANEL GLOMERULAR FILTRATION RATE/1.73 SQ M.PREDICTED [VOLUME RATE/AREA] IN SERUM, PLASMA OR BLOOD BY CREATININE-BA SED FORMULA (CKD-EPI 2020) 75 03/03 Specimen Type: PLASMA No comment entered. Ordering Provider: KAREEM NINO Report Released Date/Time : Mar 17, 2024 09:56 AM Reporting Lab: [place] [facility] [address] [place] [address] 8 Performin g Lab: [place] [facility] [address] [place] [address] 8 [facility] CBC LEUKOCYTES [#/VOLUME] IN BLOOD BY AUTOMATED COUNT 8.8 10*3/u L 3.6 - 11.2 03/03 Specimen Type: BLOOD No comment entered. Ordering Provider: KAREEM NINO Report Released Date/Time : Mar 17, 2024 09:56 AM Reporting Lab: [place] [facility] [address] [place] [address] 8 Performin g Lab: [place] [facility] [address] [place] [address] 8 [facility] CBC ERYTHROCYTES [#/VOLUME] IN BLOOD BY AUTOMATED COUNT 4.86 10*6/u L 4.10 - 5.70 03/03 Specimen Type: BLOOD No comment entered. Ordering Provider: KAREEM NINO Report Released Date/Time : Mar 17, 2024 09:56 AM Reporting Lab: [place] [facility] [address] [place] [address] 8 Performin g Lab: [place] [facility] [address] [place] [address] 8 [facility] CBC HEMOGLOBIN [MASS/VOLUME] IN BLOOD 14.9 g/dL 13.1 - 16.8 03/03 Specimen Type: BLOOD No comment entered. Ordering Provider: KAREEM NINO Report Released Date/Time : Mar 17, 2024 09:56 AM Reporting Lab: [place] [facility] [address] [place] [address] 8 Performin g Lab: [place] [facility] [address] [place] [address] 8 [facility] CBC HEMATOCRIT [VOLUME FRACTION] OF BLOOD 44.4 38.2 - 48.4 03/03 Specimen Type: BLOOD No comment entered. Ordering Provider: KAREEM NINO Report Released Date/Time : Mar 17, 2024 09:56 AM Reporting Lab: [place] [facility] [address] [place] [address] 8 Performin g Lab: [place] [facility] [address] [place] [address] 8 [facility] CBC MCV [ENTITIC VOLUME] BY AUTOMATED COUNT 91.4 fL 80.0 - 100.0 03/03 Specimen Type: BLOOD No comment entered. Ordering Provider: KAREEM NINO Report Released Date/Time : Mar 17, 2024 09:56 AM Reporting Lab: [place] [facility] [address] [place] [address] 8 Performin g Lab: [place] [facility] [address] [place] [address] 8 [facility] CBC MCH [ENTITIC MASS] BY AUTOMATED COUNT 30.7 pg 27.0 - 34.0 03/03 Specimen Type: BLOOD No comment entered. Ordering Provider: KAREEM NINO Report Released Date/Time : Mar 17, 2024 09:56 AM Reporting Lab: [place] [facility] [address] [place] [address] 8 Performin g Lab: [place] [facility] [address] [place] [address] 8 [facility] CBC MCHC [MASS/VOLUME] BY AUTOMATED COUNT 33.6 g/dL 33.0 - 36.0 03/03 Specimen Type: BLOOD No comment entered. Ordering Provider: KAREEM NINO Report Released Date/Time : Mar 17, 2024 09:56 AM Reporting Lab: [place] [facility] [address] [place] [address] 8 Performin g Lab: [place] [facility] [address] [place] [address] 8 [facility] CBC PLATELETS [#/VOLUME] IN BLOOD BY AUTOMATED COUNT 374 10*3/u L 150 - 400 03/03 Specimen Type: BLOOD No comment entered. Ordering Provider: KAREEM NINO Report Released Date/Time : Mar 17, 2024 09:56 AM Reporting Lab: [place] [facility] [address] [place] [address] 8 Performin g Lab: [place] [facility] [address] [place] [address] 8 [facility] CBC PLATELET MEAN VOLUME [ENTITIC VOLUME] IN BLOOD BY AUTOMATED COUNT 9.6 fL 7.5 - 11.2 03/03 Specimen Type: BLOOD No comment entered. Ordering Provider: KAREEM NINO Report Released Date/Time : Mar 17, 2024 09:56 AM Reporting Lab: [place] [facility] [address] [place] [address] 8 Performin g Lab: [place] [facility] [address] [place] [address] 8 [facility] CBC ERYTHROCYTE DISTRIBUTION WIDTH [RATIO] BY AUTOMATED COUNT 14.0 11.8 - 15.1 03/03 Specimen Type: BLOOD No comment entered. Ordering Provider: KAREEM NINO Report Released Date/Time : Mar 17, 2024 09:56 AM Reporting Lab: [place] [facility] [address] [place] [address] 8 Performin g Lab: [place] [facility] [address] [place] [address] 8 [facility] CBC LYMPHOCYTES/1 00 LEUKOCYTES IN BLOOD BY AUTOMATED COUNT 36.3 03/03 Specimen Type: BLOOD No comment entered. Ordering Provider: KAREEM NINO Report Released Date/Time : Mar 17, 2024 09:56 AM Reporting Lab: [place] [facility] [address] [place] [address] 8 Performin g Lab: [place] [facility] [address] [place] [address] 8 [facility] CBC MONOCYTES/100 LEUKOCYTES IN BLOOD BY AUTOMATED COUNT 13.8 03/03 Specimen Type: BLOOD No comment entered. Ordering Provider: KAREEM NINO Report Released Date/Time : Mar 17, 2024 09:56 AM Reporting Lab: [place] [facility] [address] [place] [address] 8 Performin g Lab: [place] [facility] [address] [place] [address] 8 [facility] CBC NEUTROPHILS/1 00 LEUKOCYTES IN BLOOD BY AUTOMATED COUNT 45.7 03/03 Specimen Type: BLOOD No comment entered. Ordering Provider: KAREEM NINO Report Released Date/Time : Mar 17, 2024 09:56 AM Reporting Lab: [place] [facility] [address] [place] [address] 8 Performin g Lab: [place] [facility] [address] [place] [address] 8 [facility] CBC EOSINOPHILS/1 00 LEUKOCYTES IN BLOOD BY AUTOMATED COUNT 3.4 03/03 Specimen Type: BLOOD No comment entered. Ordering Provider: KAREEM NINO Report Released Date/Time : Mar 17, 2024 09:56 AM Reporting Lab: [place] [facility] [address] [place] [address] 8 Performin g Lab: [place] [facility] [address] [place] [address] 8 [facility] CBC BASOPHILS/100 LEUKOCYTES IN BLOOD BY AUTOMATED COUNT 0.5 03/03 Specimen Type: BLOOD No comment entered. Ordering Provider: KAREEM NINO Report Released Date/Time : Mar 17, 2024 09:56 AM Reporting Lab: [place] [facility] [address] [place] [address] 8 Performin g Lab: [place] [facility] [address] [place] [address] 8 [facility] CBC LYMPHOCYTES [#/VOLUME] IN BLOOD BY AUTOMATED COUNT 3.18 10*3/u L 0.77 - 4.50 03/03 Specimen Type: BLOOD No comment entered. Ordering Provider: KAREEM NINO Report Released Date/Time : Mar 17, 2024 09:56 AM Reporting Lab: [place] [facility] [address] [place] [address] 8 Performin g Lab: [place] [facility] [address] [place] [address] 8 [facility] CBC MONOCYTES [#/VOLUME] IN BLOOD BY AUTOMATED COUNT 1.21 10*3/u L 0.19 - 0.8 03/03 H Specimen Type: BLOOD No comment entered. Ordering Provider: KAREEM NINO Report Released Date/Time : Mar 17, 2024 09:56 AM Reporting Lab: [place] [facility] [address] [place] [address] 8 Performin g Lab: [place] [facility] [address] [place] [address] 8 [facility] CBC NEUTROPHILS [#/VOLUME] IN BLOOD BY AUTOMATED COUNT 3.99 10*3/u L 2.10 - 8.00 03/03 Specimen Type: BLOOD No comment entered. Ordering Provider: KAREEM NINO Report Released Date/Time : Mar 17, 2024 09:56 AM Reporting Lab: [place] [facility] [address] [place] [address] 8 Performin g Lab: [place] [facility] [address] [place] [address] 8 [facility] CBC EOSINOPHILS [#/VOLUME] IN BLOOD BY AUTOMATED COUNT 0.30 10*3/u L 0.00 - 0.60 03/03 Specimen Type: BLOOD No comment entered. Ordering Provider: KAREEM NINO Report Released Date/Time : Mar 17, 2024 09:56 AM Reporting Lab: [place] [facility] [address] [place] [address] 8 Performin g Lab: [place] [facility] [address] [place] [address] 8 [facility] CBC BASOPHILS [#/VOLUME] IN BLOOD BY AUTOMATED COUNT 0.04 10*3/u L 0.00 - 0.20 03/03 Specimen Type: BLOOD No comment entered. Ordering Provider: KAREEM NINO Report Released Date/Time : Mar 17, 2024 09:56 AM Reporting Lab: [place] [facility] [address] [place] [address] 8 Performin g Lab: [place] [facility] [address] [place] [address] 8 [facility] CBC IMMATURE GRANULOCYTES/ 100 LEUKOCYTES IN BLOOD BY AUTOMATED COUNT 0.3 03/03 Specimen Type: BLOOD No comment entered. Ordering Provider: KAREEM NINO Report Released Date/Time : Mar 17, 2024 09:56 AM Reporting Lab: [place] [facility] [address] [place] [address] 8 Performin g Lab: [place] [facility] [address] [place] [address] 8 [facility] CBC IMMATURE GRANULOCYTES [#/VOLUME] IN BLOOD BY AUTOMATED COUNT 0.03 10*3/u L 0.00 - 0.05 03/03 Specimen Type: BLOOD No comment entered. Ordering Provider: KAREEM NINO Report Released Date/Time : Mar 17, 2024 09:56 AM Reporting Lab: [place] [facility] [address] [place] [address] 8 Performin g Lab: [place] [facility] [address] [place] [address] 8 [facility] HGA1C HEMOGLOBIN A1C/HEMOGLOBI N.TOTAL IN BLOOD 6.2 4.0 - 6.0 03/17 H Specimen Type: BLOOD No comment entered. Ordering Provider: KAREEM NINO Report Released Date/Time : May 26, 2023 09:40 AM Reporting Lab: [place] [facility] [address] [place] [address] 8 Performin g Lab: [place] [facility] [address] [place] [address] [facility] VALPROIC ACID (PB) VALPROATE [MASS/VOLUME] IN SERUM OR PLASMA <12.5u g/mL 50 - 100 03/17 L Specimen Type: PLASMA No comment entered. Ordering Provider: KAREEM NINO Report Released Date/Time : May 26, 2023 09:40 AM Reporting Lab: [place] [facility] [address] [place] [address] 8 Performin g Lab: [place] [facility] [address] [place] [address] 8 [facility] TSH (MA-PB) THYROTROPIN [UNITS/VOLUME ] IN SERUM OR PLASMA 0.889 u[IU]/ mL 0.47 - 5 03/17 Specimen Type: SERUM No comment entered. Ordering Provider: KAREEM NINO Report Released Date/Time : May 26, 2023 09:40 AM Reporting Lab: [place] [facility] [address] [place] [address] 8 Performin g Lab: [place] [facility] [address] [place] [address] 8 [facility] CHOLESTEROL PANEL (PB) CHOLESTEROL [MASS/VOLUME] IN SERUM OR PLASMA 161 mg/dL 0 - 200 03/17 Specimen Type: PLASMA No comment entered. Ordering Provider: KAREEM NINO Report Released Date/Time : May 26, 2023 09:40 AM Reporting Lab: [place] [facility] [address] [place] [address] Performin g Lab: [place] [facility] [address] [place] [address] [facility] CHOLESTEROL PANEL (PB) TRIGLYCERIDE [MASS/VOLUME] IN SERUM OR PLASMA 131 mg/dL 0 - 150 03/17 Specimen Type: PLASMA No comment entered. Ordering Provider: KAREEM NINO Report Released Date/Time : May 26, 2023 09:40 AM Reporting Lab: [place] [facility] [address] [place] [address] 8 Performin g Lab: [place] [facility] [address] [place] [address] 8 [facility] CHOLESTEROL PANEL (PB) CHOLESTEROL IN LDL [MASS/VOLUME] IN SERUM OR PLASMA BY CALCULATION 99.1 mg/dL 03/17 Specimen Type: PLASMA No comment entered. Ordering Provider: KAREEM NINO Report Released Date/Time : May 26, 2023 09:40 AM Reporting Lab: [place] [facility] [address] [place] [address] 8 Performin g Lab: [place] [facility] [address] [place] [address] 8 [facility] CHOLESTEROL PANEL (PB) CHOLESTEROL IN HDL [MASS/VOLUME] IN SERUM OR PLASMA 35.7 mg/dL 40 03/17 L Specimen Type: PLASMA No comment entered. Ordering Provider: KAREEM NINO Report Released Date/Time : May 26, 2023 09:40 AM Reporting Lab: [place] [facility] [address] [place] [address] Performin g Lab: [place] [facility] [address] [place] [address] 8 [facility] CHOLESTEROL PANEL (PB) CHOLESTEROL IN HDL/CHOLESTER OL.TOTAL [MASS RATIO] IN SERUM OR PLASMA 22.2 25 03/17 Specimen Type: PLASMA No comment entered. Ordering Provider: KAREEM NINO Report Released Date/Time : May 26, 2023 09:40 AM Reporting Lab: [place] [facility] [address] [place] [address] 8 Performin g Lab: [place] [facility] [address] [place] [address] 8 [facility] Vital Signs Combined list of inpatient and outpatient Vital Signs from Department of Defense and Veterans Affairs, ranging from 12 months to all on record, depending upon the facility. Vital Sign Value Date Comments Source SYSTOLIC BLOOD PRESSURE 134 03/10/2025 10:00:00 [facility] DIASTOLIC BLOOD PRESSURE 85 03/10/2025 10:00:00 [facility] PULSE OXIMETRY 95 % 03/10/2025 10:00:00 [facility] WEIGHT 247.1 03/10/2025 10:00:00 [facility] [place] [facility] BMI 37 kg/m2 03/10/2025 10:00:00 [facility] [place] [facility] PAIN 0 03/10/2025 10:00:00 [facility] HEIGHT 69.0 03/10/2025 10:00:00 [facility] TEMPERATURE 98.6 03/10/2025 10:00:00 [facility] PULSE 70 03/10/2025 10:00:00 [facility] RESPIRATION 17 03/10/2025 10:00:00 [facility] SYSTOLIC BLOOD PRESSURE 144 03/17/2024 09:08:00 [facility] DIASTOLIC BLOOD PRESSURE 84 03/17/2024 09:08:00 [facility] PULSE OXIMETRY 97 03/17/2024 09:08:00 [facility] [place] [facility] WEIGHT 239.0 03/17/2024 09:08:00 [facility] [place] [facility] BMI 35 kg/m2 03/17/2024 09:08:00 [facility] PAIN 0 03/17/2024 09:08:00 [facility] HEIGHT 69.0 03/17/2024 09:08:00 [facility] TEMPERATURE 98.4 03/17/2024 09:08:00 [facility] PULSE 66 03/17/2024 09:08:00 [facility] RESPIRATION 18 03/17/2024 09:08:00 [facility] [place] [facility] Encounters Combined list of: 1) Encounters from Department of Veterans Affairs facilities going backup to the last 18 months, not all VA inpatient encounters are included; 2) Encounters from the Department of Defense facilities going backup to 280 months. Location Location Details Encounter Type Encounter Number Reason For Visit Attending Provider ADM Date DC Date Status Disposition Source [facility] [place] [facility] HC PRO PHONE CALL 5-10 MIN [id number] Diagnos is: ICD-10- CM G43.909 Migrain e, unsp, not intract able, without status migrain osROYAL Ervin 09/11 [facility] [place] [facility] [place] [facility] [place] [place] [place] [id number] Diagnos is: ICD-10- CM H61.23 Impacte d crispinjay MAGNO Jorge RT P 09/17 [facility] [place] [facility] HEARING AID CHECK BOTH EARS [id number] Diagnos is: ICD-10- CM H61.23 Impacte d crispinn MAGNO Jorge RT P 09/17 [place] [facility] Outpatient Encounter [id number] 09/24 [facility] Outpatient Encounter [id number] 09/25 [facility] Outpatient Encounter [id number] 10/01 [facility] Outpatient Encounter [id number] 10/14 [facility] Outpatient Encounter [id number] 10/18 [facility] Outpatient Encounter [id number] 10/28 [facility] Outpatient Encounter [id number] 11/01 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 Outpatient Encounter [id number] 12/07 [facility] TELEHEALTH FACILITY FEE [id number] Diagnos is: ICD-10- CM H90.3 Sensori neural hearing loss, KARIME Tyler A 12/10 [facility] [place] [facility] FELICITAS TEST PURE TONE [id number] Diagnos is: ICD-10- CM H90.3 Sensori neural hearing loss, KARIME TylerNDRA A 12/10 [place] [facility] TELEHEALTH FACILITY FEE [id number] Diagnos is: ICD-10- CM Z46.1 Encount er for fitting and adjustm ent of hearing aid KARIME HUDSON A 12/10 [facility] CONFORMITY EVALUATION [id number] Diagnos is: ICD-10- CM Z46.1 Encount er for fitting and adjustm ent of hearing aid KARIME HUDSON A 12/10 [place] [facility] Outpatient Encounter [id number] 12/14 [facility] Outpatient Encounter [id number] 01/03 [facility] Outpatient Encounter [id number] 01/03 [facility] [place] [facility] HC PRO PHONE CALL 11-20 MIN [id number] Diagnos is: ICD-10- CM H90.3 Sensori neural hearing loss, bilater al KARIME HUDSON A 01/04 [place] [facility] Out[facility] Encounter [id number] 01/11 [facility] TELEHEALTH FACILITY FEE [id number] Diagnos is: ICD-10- CM Z46.1 Encount er for fitting and adjustm ent of hearing aid KARIME HUDSON A 01/20 [facility] [place] [facility] HEARING AID REPAIR/MOD IFYING [id number] Diagnos is: ICD-10- CM Z46.1 Encount er for fitting and adjustm ent of hearing aid KARIME HUDSON A 01/20 [place] [facility] [place] [facility] Outpatient Encounter [id number] MAYUR BEEBE M 01/28 [place] [facility] Outpatient Encounter [id number] MAYUR BEEBE M 01/28 [facility] [place] [facility] Outpatient Encounter [id number] 02/02 [place] [facility] OFFICE O/P EST MOD 30 MIN [id number] Diagnos is: ICD-10- CM I10 Essenti al (primar y) hyperte nsbindu TRUNGMimi DION 03/17 [facility] Outpatient Encounter [id number] 04/14 [facility] [place]MIN [id number] Diagnos is: ICD-10- CM Z23 Encount er for immuniz JOSUE Walker ROMERO Aldrich 05/20 [facility] Outpatient Encounter [id number] KASSIDY PEREZ 06/15 [facility] Outpatient Encounter [id number] 06/15 [facility] Outpatient Encounter [id number] 06/16 [facility] Outpatient Encounter [id number] 07/08 [facility] Outpatient Encounter [id number] 09/06 [facility] Outpatient Encounter [id number] 09/08 [facility] Outpatient Encounter [id number] 09/21 [facility] Outpatient Encounter [id number] 09/22 [facility] Outpatient Encounter [id number] 09/30 [facility] [place] [facility] Outpatient Encounter [id number] 11/10 [place] [facility] [place] [facility] Outpatient Encounter [id number] 12/08 [place] [facility] [place] [facility] Outpatient Encounter [id number] 01/30 [place] [facility] Outpatient Encounter [id number] 02/09 [facility] Outpatient Encounter [id number] 03/07 [facility] Outpatient Encounter [id number] Mimi NINO 03/10 [facility] Social History Combined list of available smoking, tobacco, and other social history from [facility] and [facility] facilities. Social History Type Response Date Comment [facility] Tobacco smoking status [facility] VA-TOBACCO NEVER USED CIGARETTES 03/10/2025 [facility] History of tobacco use PA-TOBACCO NEVER USED OTHER TYPE 03/10/2025 [facility] History of tobacco use VA-TOBACCO NEVER USED 03/17/2024 [facility] History of tobacco use VA-TOBACCO NEVER USED 11/26/2022 [facility] History of tobacco use PA-TOBACCO FORMER USER 01/03/2021 [facility] History of tobacco use PA-TOBACCO QUIT 1 5 YRS OR MORE 06/30/2018 [facility] History of tobacco use QUIT TOBACCO >7 Y EARS AGO 04/07/2018 [facility] History of tobacco use LIFETIME NON-USER OF TOBACCO 07/10/2011 [facility] Plan of Care List of future care activities from [facility] facilities. Additional future care activities may be listed in the Assessment and Plan section. Date/Time Care Activity Care Activity Detail Facili ty 03/10/2025 AMBULATORY - MEDICINE AMBULATORY - MEDICI [facility] Advance Directives List of completed, amended, or rescinded Advance Directives on record at Department of [facility] Affairs facilities. An actual copy of the Directive is not included. Date Advance Directive Provider Source 05/02/2002 ADVANCE DIRECTIVE CLAUDIA TIM IS [place] [facility]
--- NOTE | 2025-03-10 11:06 | XR_ITS ---
WS: [id number] XR chest 1V portable [id number] REASON FOR EXAM: chest pain FINDINGS: Chemotherapy infusion port overlying the left chest with trans left subclavian vein infusion catheter with the tip in the distal SVC. Other than the port and infusion catheter the chest is unchanged compared to 08/02/2020. Moderate ectasia and tortuosity of the ascending thoracic aorta and aortic arch. Mild tortuosity of the descending thoracic aorta. Heart size at the upper limits of normal. Calcified granulomatous disease bilaterally with no acute pulmonary parenchymal or pleural abnormality. 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 XR/XR chest 1V portable [id number] IMPRESSION: Stable chest without acute abnormality.
--- NOTE | 2025-03-10 11:06 | ECG_ITS ---
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
--- OUTSIDE RECORDS SUMMARY | 2025-03-10 11:07 | XMS_ITS | Clinical Summary ---
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
--- OUTSIDE RECORDS SUMMARY | 2025-03-10 11:08 | XMS_ITS | Patient Health Record ---
Author Organization [employer] Address [address] [place] [address] Care Team Providers Care Hydrology Technician Name Role Phone Harish Amezquita Primary Care Provider Bandar Resendiz Unavailable Unavailable Allergies Allergen (clinical drug ingredient) Drug/Non Drug Allergy documented on EMR Reaction Allergy Type Onset Date Status codeine Codeine Unknown Drug Allergy Active morphine Morphine Unknown Drug Allergy Active Reason For Referral No Information Medications Medication SIG (Take, Route, Frequency, Duration) Notes Start Date End Date Status Finasteride 5 MG 1 tablet Orally Once a day Active Fluticasone Propionate 50 MCG/ACT 1 spray in each nostril Nasally Once a day Active Prochlorperazine Maleate 10 MG 1 tablet as needed Orally every 6 hours; Duration: 30 days 07/30/2022 Active Compazine 10 MG 1 po q6h prn N/V Orally; Duration: 30 days *Reorder from [facility] for eRx and Interaction Alerts* 07/30/2022 Active Ondansetron HCl 8 MG 1 tablet as needed Orally every 6 hours; Duration: 30 day(s) Active Valproic Acid 250 MG 1 capsule Orally Three times a day Active Cetirizine HCl 10 MG 1 tablet as needed Orally Once a day Active Montelukast Sodium 10 MG 1 tablet Orally Once a day Active Atorvastatin Calcium 40 MG 1 tablet Orally Once a day Active Lisinopril 40 MG 1 tablet Orally Once a day Active Flomax 0.4 MG 1 capsule Orally Once a day Active Immunizations Vaccine Route Administration Date Status Comme nts COVID-19 Vaccine (Moderna) Dose #1 Unknown 10/26/2020 Administered declines 2nd v accine Immunization Given by from source eCW:: Problems Problem Type SNOMED Code ICD Code Onset Dates Problem Status W/U Status Risk Notes Problem 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 (424434952164562) 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 Problem Hypomagnesemia (088855616) Hypomagnesemia (E83.42) Active confirmed Problem Absent kidney (063040262) Acquired absence of kidney (Z90.5) Active confirmed Problem Malignant neoplasm of posterior wall of urinary bladder (224975229) Malignant neoplasm of posterior wall of urinary bladder (C67.4) Active confirmed Problem Absent kidney (632614650) Absent kidney (Z90.5) Active confirmed Problem Personal history of primary malignant neoplasm of urinary bladder (938075714) History of bladder cancer (Z85.51) Active confirmed Problem Personal history of primary malignant neoplasm of kidney (959464691) History of kidney cancer (Z85.528) Active confirmed Problem Malignant tumor of urinary bladder (743787267) Malignant neoplasm of urinary bladder, unspecified site (C67.9) Active confirmed Plan Of Treatment Pending Test Test Name Order Date Culture Urine Reflex--[id number] 07/23/2022 PETCT 02/27/2021 PETCT 07/11/2021 zzzPET Skullbase To Mid Thigh-22109 06/04 zzzPET Skullbase To Mid Thigh-93030 08/03 Port Flush 07/23/2022 Future Test Test Name Order Date zzzPET Skullbase To Mid Thigh-09729 06/04 Comprehensive Metabolic Panel 94391 08/03 Magnesium (B) 77937 08/20/2022 CBC Reflex Man Diff [id number], 09483 023 Comprehensive Metabolic Panel 61674 08/04 Magnesium (B) 39523 08/27/2022 CBC Reflex Man Diff 97213, 74278 023 Insurance Providers Payer Name Payer Address Payer Phone Subscriber Number Group Number Insured Name Patient Relationship to Insured Coverage Start Date Coverage End Date [employer]UM [address] [place], [place] [id number] Joseph oNrman Self - patient is the insured Medical (General) History Medical History History ICD Code Hypercholesterolemia Hypertension Malignant neoplasm, Obesity migraine headache infectious mono hemorrhoids cataracts measles chicken pox infectious mono kidney stones cancer Surgical History Surgery Date(Month/Year) romoval of left kidney bladder cancer Other bladder surgery spleen removal gall bladder removal denies recent Hospitalization History Reason Date(Month/Year) denies recent see surgical hx Pt denies recent hospitalizations 2022
--- OUTSIDE RECORDS SUMMARY | 2025-03-10 11:08 | XMS_ITS | Patient Health Record ---
Author Organization [facility] Address [address] [place] [address] Care Team Providers Care Truck Switcher Name Role Phone Berny GONSALEZ Primary Care Provider Unavailab Rip Dinh Unavailable [phone] Bandar Acosta Unavailable Unavailable Allergies Allergen (clinical drug ingredient) [...] fluticasone furoate 0.0275 MG/ACTUAT Metered Dose Nasal Ross *Reorder from [facility] for eRx and Interaction Alerts* 04/26/2021 Active Valproic Acid 250 MG Capsule 1 capsule Orally Three times a day Active Atorvastatin Calcium 40 MG Tablet 1 tablet Orally Once a day Active Lisinopril 40 MG Tablet 1 tablet Orally Once a day Active 1 ML Epinephrine 1 MG/ML Injection *Reorder from [facility] for eRx and Interaction Alerts* 04/26/2021 Active Montelukast Sodium 10 MG Tablet 1 tablet Orally Once a day Active Flomax 0.4 MG Capsule 1 capsule Orally Once a day Active Finasteride 5 MG Tablet 1 tablet Orally Once a day Active Tamsulosin HCl 0.4 MG Capsule Oral 04/26/2021 Active Cetirizine HCl 10 MG Tablet 1 tablet as needed Orally Once a day Active Montelukast Sodium 4 MG Tablet Chewable Oral 04/26/2021 Active Fluticasone Propionate 50 MCG/ACT Suspension 1 spray in each nostril Nasally Once a day Active Valproic Acid 250 MG Oral Capsule ORAL *Reorder from [facility] for eRx and Interaction Alerts* 04/26/2021 Active Prochlorperazine Maleate 10 MG Tablet 1 tablet as needed Orally every 6 hours; Duration: 30 days 07/30/2022 Active Acetaminophen 325 MG / butalbital 50 MG / Caffeine 40 MG Oral Tablet ORAL *Reorder from [facility] for eRx and Interaction Alerts* 04/26/2021 Active Compazine 10 MG Capsule Extended Release 1 po q6h prn N/V Orally; Duration: 30 days 07/30/2022 Active Lisinopril 40 MG Oral Tablet ORAL *Reorder from [facility] for eRx and Interaction Alerts* 04/26/2021 Active Ondansetron HCl 8 MG Tablet 1 tablet as needed Orally every 6 hours; Duration: 30 day(s) Active Docusate Sodium 100 MG Oral Tablet ORAL *Reorder from [facility] for eRx and Interaction Alerts* 05/21/2021 Active Immunizations Vaccine Route Administration Date Status Comme nts COVID-19 Vaccine (Moderna) Dose #1 Unknown 10/26/2020 Administered declines 2nd v accine Social History Tobacco Use: Social History Observation Description Date Details (start date - stop date) Never Smoker NA - NA Social History Tobacco Use: Social Info Question Answer Notes xTobacco Use/Smoking Are you a nonsmoker Additional Details Category Social Info Options Details Migrated Social History Migrated Social History History of tobacco use : , Smoking Status : Never used tobacco zzMigrated Social History Migrated Social History Smoking Status:Never smoked tobacco (finding) Problems Problem Type SNOMED Code ICD Code Onset Dates Problem Status W/U Status Risk Notes Problem 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 (553504833872202) 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 Problem Hypomagnesemia (397387869) Hypomagnesemia (E83.42) Active confirmed Problem Absent kidney (070518207) Acquired absence of kidney (Z90.5) Active confirmed Problem Malignant tumor of urinary bladder (226541631) Malignant neoplasm of urinary bladder, unspecified site (C67.9) Active confirmed Problem Personal history of primary malignant neoplasm of urinary bladder (134261296) History of bladder cancer (Z85.51) Active confirmed Problem Personal history of primary malignant neoplasm of kidney (821751158) History of kidney cancer (Z85.528) Active confirmed Problem Malignant neoplasm of posterior wall of urinary bladder (205895831) Malignant neoplasm of posterior wall of urinary bladder (C67.4) Active confirmed Problem Absent kidney (365913157) Absent kidney (Z90.5) Active confirmed Plan Of Treatment Pending Test Test Name Order Date zzzPET Skullbase To Mid Thigh-47089 06/04 zzzPET Skullbase To Mid Thigh-04954 08/03 Culture Urine Reflex--[id number] 07/23/2022 Insurance Providers Payer Name Payer Address Payer Phone Subscriber Number Group Number Insured Name Patient Relationship to Insured Coverage Start Date Coverage End Date [employer] [address] [place] [phone] [id number] Joseph Norman Self - patient is the insured Medical [...]
--- OUTSIDE RECORDS SUMMARY | 2025-03-10 11:08 | XMS_ITS | Clinical Summary ---
Author Organization [facility] Address [address] [place] [address] Phone Care Team Providers Care Director Corporate Sales Name Role Phone Unavailable Primary Care Provider Unavailabl e Allergies Active Allergy Reactions Criticality Noted Date Comments Codeine Confusion Low 11/13/2022 Morphine Confusion Medium 11/13/2022 Medications atorvastatin (LIPITOR) 40 mg tablet Take 1 Tablet (40 mg) by mouth daily at bedtime. 60 Tablet 11/18/19 23 Active cetirizine (ZyrTEC) 10 mg tablet Take 1 Tablet (10 mg) by mouth 1 time daily as needed for Allergies or Rhinitis. 60 Tablet 11/18/19 23 Active divalproex (DEPAKOTE) 250 mg Delayed Release tablet Take 1 Tablet (250 mg) by mouth 2 times daily. 120 Tablet 11/18/19 23 Active fluticasone propionate (FLONASE) 50 mcg/spray Russell, Suspension nasal inhaler Administer 2 Sprays in each nostril 1 time daily as needed for Allergies or Rhinitis. 16 Gram 11/18/19 23 Active lisinopriL (PRINIVIL) 20 mg tablet Take 1 Tablet (20 mg) by mouth daily at bedtime. 60 Tablet 11/18/19 23 Active miconazole nitrate (REMEDY-AF,ZEASORB -AF) 2 % Powder Apply to affected area see administration instructions. Apply to urostomy site when changing bag. 85 Gram 11/18/19 23 Active montelukast (SINGULAIR) 10 mg tablet Take 1 Tablet (10 mg) by mouth daily at bedtime. 60 Tablet 11/18/19 23 Active simethicone 80 mg Tablet, Chewable Take 1 Tablet (80 mg) by mouth every 6 hours as needed for Gas. 120 Tablet 11/18/19 23 Active traMADoL (ULTRAM) 50 mg tabletIndications: Osteoarthritis of right knee, unspecified osteoarthritis type,Debility,Post operative pain Take 1 Tablet (50 mg) by mouth every 6 hours as needed for Pain. 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 11/11/2022 Impaired mobility and ADLs 11/11/2022 HTN (hypertension), benign 11/11/2022 Hyperlipidemia 11/11/2022 Malignant neoplasm of anterior wall of urinary b ladder 03/28/2022 Overview (11/13/2022): Added automatically from request for surgery [id number] Malignant neoplasm of overlapping sites of bladd er 2022 Overview (11/13/2022): Jul 17, 2022 Entered By: KAREEM NINO Comment: currently under chemotherapy for Added automatically from request for surgery [id number] Immunizations Immunization Administration Dates Next Due (TDVAX)(7 YRS UP) TETANUS AN D DIPHTHERIA TOXOIDS, ADSORBED (2 LF OF TETANUS TOXOID AND 2 LF OF DIPHTHERIA TOXOID), 0.5ML (PF), IM 10/15/2005 Social History Tobacco Use Types Packs/Day Years Used Date Smoking Tobacco: Unknown Tobacco Cessation:Counseling Given: No Alcohol Use Standard Drinks/Week Comments Not Currently 0 (1 standard drink = 0.6 oz pur e alcohol) Sex and Gender Information Value Date Recorded Sex Assigned at Not on file Legal 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 [employer] Gender Identity Not on file Sexual Orientation Not on file Last Filed Vital Signs Vital Sign Reading Time Taken Comments Blood Pressure 133/84 11/18/2022 2:11 AM CDT Pulse 87 11/18/2022 2:11 AM CDT Temperature 37.2 C (98.9 F) 11/18/2022 2:11 AM CDT Respiratory Rate 18 11/18/2022 2:11 AM CDT Oxygen Saturation 96% 11/18/2022 2:11 AM CDT Inhaled Oxygen Concentration - - Weight 100.2 kg (221 lb) 11/12/2022 6:33 PM CDT Height 195.6 cm (6' 5 ) 11/12/2022 6:33 PM CDT Body Mass Index 26.21 11/12/2022 6:33 PM CDT Plan of Treatment Health Maintenance Due Date Last Done Comments COLORECTAL SCREENING 1995 Colorectal Cancer Screening 1995 FIT-DNA Q 3 years 1995 FIT/FOBT Q 1 year 1995 Flex Sig/CT Colonography Q 5 years 1995 DTAP/TDAP/TD VACCINES (2 - T d or Tdap) 10/22/2022 10/22/2012, 10/15/2005 RSV VACCINE (60+ or ) (1 - 1-dose 75+ series) 2025 INFLUENZA VACCINE (#1) 2025 0, 05/17/2019, 06/03/2018, Additional history exists PNEUMOCOCCAL VACCINE 50+ YEARS Completed 06/30/2018 , 05/31/2015 ZOSTER VACCINE Completed 03/30/2020, 05/04, 06/12/2014 Insurance [facility] [employer] [place] [employer]
--- OUTSIDE RECORDS SUMMARY | 2025-03-10 11:08 | XMS_ITS | Encounter Summary ---
Author Organization [facility] Address [address] [place] [address] Care Team Providers Care Auctioneer Tobacco Name Role Phone Unavailable Primary Care Provider Unavailabl e Encounter Details Date Type Department Care Team (Latest Contact Info) Description 03/01/2004 Outpatient Historical [facility] [address] [place] [address] Yehuda Rebolledo MD [address] [place] [id number] Toxic effect venom (Primary Dx) Social History Tobacco Use Types Packs/Day Years Used Date Smoking Tobacco: Never Assessed Sex and Gender Information Value Date Recorded Sex Assigned at Not on file 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
[2025-03-10 11:14] LABS: Hematocrit 45.9 % (37-53); Hemoglobin 15.40 g/dL (11.27-16.99); Mean Corpuscular HGB Conc 33.6 g/dL (30-55); Mean Corpuscular Hemoglobin 30.6 pg (27-33); Mean Corpuscular Volume 91.3 fl (82-101); Nucleated Red Blood Cells % 0 %; Platelet Count 374 10^3/cmm (157-399); Red Blood Count 5.03 10^6/uL (3.85-5.65); White Blood Count 7.87 10^3/uL (3.29-11.43)
[2025-03-10 11:27] LABS: Alanine Aminotransferase 22 U/L (0-41); Albumin Level 3.8 g/dL (3.5-5.2); Alkaline Phosphatase 116 U/L (40-130); Anion Gap 16.5 (5-19); Aspartate Amino Transferase 25 U/L (0-40); Blood Urea Nitrogen 20 mg/dL (8-23); Calcium 9.3 mg/dL (8.5-10.5); Carbon Dioxide 25 mmol/L (22-29); Chloride 103 mmol/L (98-107); Creatinine Clr Calc Pharmacy 86.2301; Globulin 3.8 g/dL (1.3-4.6); Glucose 153 mg/dL (65-115); Osmolality Calculated 296 mOsm/kg (285-295); Potassium 4.5 mmol/L (3.5-5.1); Sodium 140 mmol/L (136-145); Total Protein 7.6 g/dL (6.6-8.7)
[2025-03-10 11:28] LABS: Troponin(5th) Baseline 24 ng/L (0-15)
--- NOTE | 2025-03-10 12:06 | ED_ITS ---
HPI - Chest Pain 2 General: Chief Complaint: Chest Pain Stated Complaint: chest pain Time Seen by Provider: 03/10/25 11:00 History of Present Illness: 75-year-old male presents emergency room with complaint of shortness of breath with exertion for the last month now progressing to the point which also getting some chest pressure with it. Patient's head increasing shortness of breath with any exertion. At this point patient states she can only walk about 20 feet without having to stop and rest. He has not had any hemoptysis she has no known history of arrhythmias. He does have history of bladder and prostate cancer has urostomy. Associated symptoms: Reports dyspnea; Deny abdominal pain or fever(s) Related Data Home Medications ?Medication ?Instructions ?Recorded ?Confirmed atorvastatin 40 mg tablet 40 mg PO DAILY@199903/27/20 07/23/23 cetirizine 10 mg tablet 5 mg PO DAILY PRN Allergy Sy mptoms 03/27/20 07/23/23 lisinopril 40 mg tablet 20 mg PO DAILY@199903/27/20 07/23/23 montelukast 10 mg tablet 10 mg PO DAILY@199903/27/20 07/23/23 divalproex 250 mg tablet,extended 250 mg PO BID 07/23/23 release 24 hr (Depakote ER) Previous Rx's ?Medication ?Instructions ?Recorded diclofenac sodium 1 % topical gel 2 g topical QID 30 d ays #100 grams 03/07/25 (Voltaren Arthritis Pain) Allergies Allergy/AdvReac Type Severity Reaction Status Date / Time codeine Allergy RASH Verified 07/23/23 08:41 morphine Allergy RASH Verified 07/23/23 08:41 Review of Systems 2 Const: Denies: fever(s) or chills Card: Reports: chest pain and dyspnea on exertion Resp: Reports: dyspnea GI: Denies: abdominal pain : Denies: dysuria, urinary frequency or urinary urgency Musc: Denies: neck pain or back pain Skin/Breast: Denies: rash PFSH ED 2 PFSH: Medical History History of prostate cancer History of bladder cancer Surgical History History of prostatectomy History of urostomy Social History Smoking and tobacco/nicotine status: never used tobacco/nicotine Alcohol intake: never Substance/Drug Use: never Physical Exam 2 Const: GENERAL APPEARANCE: cooperative ORIENTATION/CONSCIOUSNESS: Yes awake, Yes oriented to person, Yes oriented to place and Yes oriented to time HENMT: COMMON NORMALS: normocephalic, atraumatic and hearing grossly normal bilaterally HEAD & SCALP: normocephalic and atraumatic Resp: COMMON NORMALS: normal respiratory effort, No retractions, No use of accessory muscles and clear to auscultation bilaterally AUSCULTATION: clear to auscultation bilaterally Cardio: COMMON NORMALS: regular rate, regular rhythm and No murmurs present (Cardio) RATE: regular rate RHYTHM: regular rhythm GI: COMMON NORMALS: Soft to palpation and No hepatosplenomegaly present A USCULTATION: Yes normoactive bowel sounds PALPATION: Yes Soft to palpation, No Tenderness to palpation present (GI), No Guarding due to palpation present (GI) and Yes No hepatosplenomegaly present Extremity: COMMON NORMALS: normal to inspection, capillary refill normal, no clubbing, cyanosis or edema, no calf tenderness and no pedal edema Neuro: SENSORIUM/ORIENTATION: Yes oriented to person, Yes oriented to place and Yes oriented to time Skin: COMMON NORMALS: no rashes or lesions noted GENERAL SKIN EXAM: no rashes or lesions noted Course 2 Vital Signs: Vital signs: Vital Signs Temperature 98.3 F 03/10/25 11:01 Pulse Rate 65 03/10/25 11:01 Respiratory Rate 16 03/10/25 11:01 Blood Pressure 149/79 03/10/25 11:01 Pulse Oximetry 96 03/10/25 11:01 Oxygen Delivery Me thod Room Air 03/10/25 11:01 MDM - Chest Pain Medical Decision Making EKG did not show any acute changes cardiac enzymes trended negative however his progressive symptoms were concerning discussed with cardiology they concurred as well and recommend admission for consultation and further evaluation for coronary disease. Medical Records I reviewed the patient's medical records. Lab Data I reviewed the patient's lab results. 03/10/25 10:45 03/10/25 10:45 Radiology Impressions Chest X-Ray 03/10/25 11:06 IMPRESSION: Stable chest without acute abnormality. Chest CTA 03/10/25 12:09 IMPRESSION: 1. No pulmonary embolism. 2. Poor inspiratory effort. Crowding of the lung markings and dependent changes at the lung bases. Subsegmental atelectasis at the RIGHT lung base. 3. No pericardial or pleural effusions. 4. No adenopathy. 5. Hepatic steatosis. Laboratory Results WBC 7.87 10^3/uL (3.29-11.43) 03/10/25 10:45 RBC 5.03 10^6/uL (3.85-5.65) 03/10/25 10:45 Hgb 15.40 g/dL (11.27-16.99) 03/10/25 10:45 Hct 45.9 % (37-53) 03/10/25 10:45 MCV 91.3 fl (82-101) 03/10/25 10:45 MCH 30.6 pg (27-33) 03/10/25 10:45 MCHC 33.6 g/dL (30-55) 03/10/25 10:45 RDW 14.2 % (12.1-15.1) 03/10/25 10:45 Plt Count 374 10^3/cmm (157-399) 03/10/25 10:45 MPV 8.9 fL (7.4-10.4) 03/10/25 10:45 Neut % (Auto) 45.0 % 03/10/25 10:45 Lymph % (Auto) 38.9 % 03/10/25 10:45 Bay % (Auto) 12.1 % 03/10/25 10:45 Eos % (Auto) 2.9 % 03/10/25 10:45 Baso % (Auto) 0.6 % 03/10/25 10:45 Neut # (Auto) 3.54 10^3/uL (1.8-7.7) 03/10/25 10:45 Lymph # (Auto) 3.1 10^3/uL (0.8-4.8) 03/10/25 10:45 Bay # (Auto) 1.0 10^3/uL (0.2-0.9) H 03/10/25 10:45 Eos # (Auto) 0.2 10^3/uL (0.0-0.8) 03/10/25 10:45 Baso # (Auto) 0.1 10^3/uL (0.0-0.1) 03/10/25 10:45 Nucleated RBC % (auto) 0 % 03/10/25 10:45 Nucleated RBCs # 0.0 /100WBC 03/10/25 10:45 Sodium 140 mmol/L (136-145) 03/10/25 10:45 Potassium 4.5 mmol/L (3.5-5.1) 03/10/25 10:45 Chloride 103 mmol/L (98-107) 03/10/25 10:45 Carbon Dioxide 25 mmol/L (22-29) 03/10/25 10:45 Anion Gap 16.5 (5-19) 03/10/25 10:45 BUN 20 mg/dL (8-23) 03/10/25 10:45 Creatinine 0.9 mg/dL (0.7-1.2) 03/10/25 10:45 GFR Calculation Not Reportable 03/10/25 10:45 Glucose 153 mg/dL (65-115) H 03/10/25 10:45 Calculated Osmolality 296 mOsm/kg (285-295) H 03/10/25 10:45 Calcium 9.3 mg/dL (8.5-10.5) 03/10/25 10:45 Total Bilirubin 0.7 mg/dL (0.15-1.2) 03/10/25 10:45 AST 25 U/L (0-40) 03/10/25 10:45 ALT 22 U/L (0-41) 03/10/25 10:45 Alkaline Phosphatase 116 U/L (40-130) 03/10/25 10:45 Troponin T Baseline 24 ng/L (0-15) H 03/10/25 10:45 Troponin T 120 Minute 19.93 ng/L (0-15) H 03/10/25 12:37 Delta Troponin T -4.07 ABS# (0-10) L 03/10/25 12:37 Total Protein 7.6 g/dL (6.6-8.7) 03/10/25 10:45 Albumin 3.8 g/dL (3.5-5.2) 03/10/25 10:45 Globulin 3.8 g/dL (1.3-4.6) 03/10/25 10:45 All radiology interpretation(s) finalized by discharge Clincial Decision Support The following clinical decision support tools were used to aid in care of the patient HEART Score -> History: Highly Suspicious, EKG: Normal, Age: 65 or more yrs, Risk Factors: >/=3 Risk Factors, Troponin: Baseline Trop 16-45 ng/L. Resulting HEART Score: 7. Discharge Plan Discharge Patient Disposition: Admitted As Inpatient Clinical Impression: Stable angina Condition: Stable Coding Level of Care Code ED [employer] Architect for Temi Massey
--- NOTE | 2025-03-10 12:09 | CT_ITS ---
WS: [id number] CT CHEST ANGIOGRAPHY WITH REFORMATS HISTORY: Shortness of breath with exertion history of cancer TECHNIQUE: Contiguous axial images are obtained through the chest during arterial injection of intravenous contrast. Images are reconstructed to evaluate the pulmonary arteries. MIP imaging also reviewed. All CT scans at [facility] use at least one of these dose optimization techniques: automated exposure control; mA and/or kV adjustment per patient size (includes targeted exams where dose is matched to clinical indication); or iterative reconstruction. CONTRAST: Omnipaque 350; 100 mL IV. DLP: 481.12 mGy.cm COMPARISON: None available. Good contrast opacification of the pulmonary arteries. No pulmonary embolism. Normal size pulmonary artery. No RIGHT heart strain. Minimal atherosclerosis aorta. No aneurysm. LEFT hilar lymph node 10 mm. No pathologically enlarged lymph nodes. Mild hazy attenuation throughout both lungs is due to poor inspiration and expiration. No mass or pneumonia. There are a few small granulomata. No pneumothorax. Small hiatal hernia. Prior cholecystectomy. No adrenal mass. Hepatic steatosis. Mild soft tissue thickening at the GE junction is very similar to the study from 2020. No destructive bone lesions. CT/CT angio chest PE protcl 75251 IMPRESSION: 1. No pulmonary embolism. 2. Poor inspiratory effort. Crowding of the lung markings and dependent change s at the lung bases. Subsegmental atelectasis at the RIGHT lung base. 3. No pericardial or pleural effusions. 4. No adenopathy. 5. Hepatic steatosis.
--- NOTE | 2025-03-10 13:06 | ECG_ITS ---
[facility] Test Date: 2025-03-10 Pat Name: Joseph Norman Department: Room: Gender: Male Counseling Program Leader: : 1950 Requested By: Huseyin Cochran Order Number: [id number] Marine MD: MARIA R BEDOLLA Measurements Intervals [place] Rate: 55 P: 44 ND: 216 QRS: 17 QRSD: 88 T: 38 QT: 398 QTc: 384 Interpretive Statements SINUS BRADYCARDIA WITH FIRST DEGREE AV BLOCK Compared to ECG 11/26/2022 12:17:53 First degree AV block now present Sinus rhythm no longer present Electronically Signed On 03-14-2025 20:04:42 CDT by MARIA R BEDOLLA [email or web address] [id number]
[2025-03-10] MEDS: iohexol 350 mg/mL 500 mL Btl (per mL) IV (13:09)
[2025-03-10 14:11] LABS: Troponin 5 2HR 19.93 ng/L (0-15)
[2025-03-10 14:12] LABS: Troponin 5 2HR Delta -4.07 ABS# (0-10)
--- NOTE | 2025-03-10 16:45 | P.CONIM_ITS ---
<Statement entered by Kurt Narayanan MD - 03/11/25 09:53> Patient was evaluated and cared for in conjunction with an advanced practice practitioner. I personally examined the patient and reviewed the chart and all pertinent data including imaging, telemetry, and laboratory results. I discussed the patient in detail with the advanced practice practitioner. Please see their note for complete H&P testing result and agreed upon plan of care for the patient. 75-year-old male past medical history significant for hypertension hyperlipidemia obesity history of renal cancer status post nephrectomy years ago, history of bladder cancer status post nephrostomy with urinary bag presented with chest pain and worsening of shortness of breath which has increased in frequency and duration over the last 1 month now to the extent few steps bring the chest pressure on which radiates to her neck jaw and both arm. Patient has to sit to get over it. Today when chest pain started worsening more he decided come to the ER. Twelve-lead EKG in cardiac markers were negative however given his story risk factors I have high suspicion of unstable angina therefore we will proceed with left heart cath/PCI due to high pretest probability and because of the fact over the weekend stress test is not available. GENERAL: Patient is alert, awake and oriented x3. HEART: Regular S1 and S2. No murmur, rub or gallop. LUNGS: Clear to auscultate bilaterally. CENTRAL NERVOUS SYSTEM: Grossly nonfocal. EXTREMITIES: Lower extremities with out edema bilaterally. Assessment and plan Unstable angina Hypertension Hyperlipidemia As above we will proceed with left heart cath/PCI Continue aspirin statin if troponin positive or escalating will add heparin Beta-gay will be on hold due to bradycardia Further plan will be advised as per progress the patient. Providers/Reason For Consult 2 Consulting Physician/Specialty*: Dr. Narayanan Reason for Consult*: Unstable angina Requesting Physician: Dr. Kaufman Attending Physician: José Quintanilla MD Primary Care Provider: Mirza Cottrell History of Present Illness History of Present Illness Joseph Norman is a 75 year old male history of prostate cancer, chemotherapy, never been a smoker, hypertension, who came into the ER today for progressive shortness of breath and chest pressure with exertion for the last month. Patient states he has had increasing shortness of breath with exertion and chest pressure at the center of his chest radiating down his left and right arm and sometimes to his neck that is relieved with rest. He states has been going on for about a month or so but is progressively gotten worse. He states he sleeps throughout the day at times because he stays exhausted. He has no known cardiac disease. He is currently chest pain-free. Patient's EKG showed sinus bradycardia with first-degree AV block but no acute ST or T wave abnormalities. Renal function is normal at this time although he does have only 1 kidney from history of a nephrectomy from renal cancer. He appears euvolemic on exam. Chest CTA was negative for pulmonary embolism. He does have some hepatic steatosis seen. No pericardial or pleural effusions. Trop is 24-19.93-24.87. VSS. Review of Systems 2 Narrative: Consitutional: denies fever, chills, body aches, or changes in appetite, denies abnormal weight loss Eyes: Denies changes in vision Card: reports chest pressure on exertion radiating down both arms relieved with rest, denies palpitations, irregular heart rhythm, edema, syncope, shortness of breath, orthopnea, leg pain with exertion Resp: Reports shortness of breath on exertion relieved with rest, denies hemoptysis, denies cough GI: denies abdominal pain, denies nausea or vomiting, denies blood in stool : denies blood in urine, denies dysuria Musc: Denies extremity pain, denies limited range of motion or recent injury Skin: Denies rash, lesions, or wounds, denies changes to skin color Neuro: Denies nubmness in extremities, h/a, s/s of stroke Masoud: Denies easy bruiding/bleeding Medications/Allergies Home Medications ?Medication ?Instructions ?Recorded ?Confirmed ?Last Taken ?Type atorvastatin 40 mg tablet 40 mg PO DAILY@199903/27/20 03/10/25 03/09/25 20:00 History cetirizine 10 mg tablet 5 mg PO DAILY PRN Allergy Sy mptoms 03/27/20 03/10/25 03/10/25 History montelukast 10 mg tablet 10 mg PO DAILY@199903/27/20 03/10/25 03/09/25 20:00 History divalproex 250 mg tablet,extended See Rx Instructions .Route .COMPLEX 11/26/22 03/10/25 03/10/25 07:00 History release 24 hr (Depakote ER) diclofenac sodium 1 % topical gel 2 g topical QID 30 d ays #100 grams 03/07/25 03/10/25 Unknown Rx (Voltaren Arthritis Pain) acetaminophen 500 mg tablet 1,000 mg PO QID PRN Headac he 03/10/25 03/10/25 Unknown History (Tylenol Extra Strength) lisinopril 10 mg tablet 10 mg PO DAILY 03/10/25 08/0 03/2703/10/25 History Allergies Allergy/AdvReac Type Severity Reaction Status Date / Time codeine Allergy RASH Verified 07/23/23 08:41 morphine Allergy RASH Verified 07/23/23 08:41 PFSH Acute 2 PFSH: Medical History (Updated 03/10/25 @ 17:07 by Lynette Cabral NP) History of prostate cancer History of bladder cancer Surgical History History of prostatectomy History of urostomy Social History Smoking and tobacco/nicotine status: never used tobacco/nicotine Alcohol intake: never Substance/Drug Use: never Vitals/I&O/Wt Last Vital Signs Temp 98.3 F 03/10/25 11:01 Pulse 65 03/10/25 11:01 Resp 16 03/10/25 11:01 BP 149/79 03/10/25 11:01 Pulse Ox 96 03/10/25 11:01 O2 Del Method Room Air 03/10/25 11:01 Weight last 48 hrs Weight 240 lb Physical Exam 2 Narrative: General: No apparent distress HENMT: normoceophalic Muskuloskeletal: Full ROM Respiratory: Normal respiratory effort, clear to auscultation bilaterally throughout all lung means, no use of accessory muscles Cardio: No JVD, regular rate, regular rhythm, S1 S2 normal, no murmurs, peripheral pulses 2+ radial palpated bilaterally Extremities: Full ROM, normal, normal capillary refill, no cyanosis or edema Neuro: Alert and oriented x4, no focal motor deficits Psych: Affect normal, mental status grossly normal Skin: No rashes or lesions noted, no wounds Data 03/10/25 10:45 03/10/25 10:45 A&P Assessment and plan 1. Unstable angina: 2. Primary hypertension: Plan: Patient has s/s of unstable angina with progressively worsening chest pressure and shortness of breath on exertion. High suspician for underlying coronary artery disease. Due to this, angiogram is needed with possible PCI. The risk and benefits were discussed in detail with the patient and his by Dr. Narayanan. They agree to proceed. Patient given aspirin 81 mg. He is chest pain free at this time. Troponins are negative w/o acute EKG changes. Will proceed with [facility] possible PCI tomorrow morning around 9. Echo will be ordered to assess wall motion abnormality and evaluate EF. Thank you, Dr. Kaufman, for allowing us to care for this very pleasant 75 year old gentleman. PDMP PDMP Reviewed: Not Reviewed Consult Attestations 2 Medical Necessity Statement: Deferred to primary. Coding Level of Care Code Acute Code for Chg Fwd Diagnoses Unstable angina I20.0 Primary hypertension I10
[2025-03-10 16:47] LABS: Troponin 5 6HR 24.87 ng/L (0-15); Troponin 5 6HR Delta 0.87 ng/L (0-12)
--- NOTE | 2025-03-10 17:55 | ECG_ITS ---
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
--- NOTE | 2025-03-10 18:30 | P.HP_ITS ---
Providers/Chief Complaint 2 Admitting Physician: José Quintanilla MD Primary Care Provider: Mirza Cottrell Chief Complaint: chest pain History of Present Illness Joseph Norman is a 75 year old male with past medical history of hypertension, prostate cancer, bladder cancer, single kidney, renal cancer status post nephrectomy, cholecystectomy, splenectomy presents to the ER today because of worsening difficulty in breathing on exertion for last 1 month. Symptoms have been progressively getting worse and for last 1 week he has been complaining of chest pressure both at rest worsening on exertion. Shortness of breath does not get worse on laying down flat. Review of Systems 2 General: Reports: 10 or more systems reviewed and unremarkable except in HPI and below Const: Denies: fever(s), chills, body aches, change in appetite, change in weight, malaise, night sweats, diaphoresis, change in sleep pattern, daytime sleepiness or snoring Eyes: Denies: change in vision, blurry vision, photophobia, eye discomfort or eye discharge ENMT: Denies: throat pain, enlarged tonsils, hoarseness, mouth pain, oral sores, dry mouth, tinnitus, nasal congestion or post nasal drip Card: Denies: chest pain, palpitations, irregular heart rhythm, edema, swelling of feet/ankles, lightheadedness, syncope, pre-syncope, dyspnea on exertion, orthopnea, leg pain with exertion or acrocyanosis Resp: Denies: dyspnea, productive cough, non-productive cough, wheezing, stridor, pain on inspiration, change in phlegm color, hemoptysis or chest congestion GI: Denies: abdominal pain, nausea, vomiting, hematemesis, coffee ground emesis, dysphagia, heartburn, diarrhea, constipation, bloating, GI cramping, change in bowel habits, pain on defecation, hematochezia or melena : Denies: flank pain, difficulty urinating, dysuria, urinary frequency, urinary urgency, urinary hesitancy, urinary dribbling, difficulty starting urination, change in urine stream, nocturia or hematuria Musc: Denies: neck pain, back pain, extremity pain, joint pain, joint swelling, joint redness, joint stiffness or limited range of motion Neuro: Denies: headache(s), numbness in extremities, weakness in extremities, sensory changes, lack of coordination, difficulty walking, frequent falls, dizziness, vertigo, confusion, Slurred speech present, difficulty communicating thoughts or seizure-like activity Psych: Denies: anxiety, depression, mood swings, panic attacks, hopelessness or irritability Endo: Denies: polyuria, polydipsia, tired all the time, cold intolerance, excessive sweating, flushing or heat intolerance Masoud/Lymph: Denies: easy bruising or easy bleeding All/Imm: Denies: tongue swelling, facial swelling or acute wheezing Medications/Allergies Home Medications ?Medication ?Instructions ?Recorded ?Confirmed ?Last Taken ?Type atorvastatin 40 mg tablet 40 mg PO DAILY@199903/27/20 03/10/25 03/09/25 20:00 History cetirizine 10 mg tablet 5 mg PO DAILY PRN Allergy Sy mptoms 03/27/20 03/10/25 03/10/25 History montelukast 10 mg tablet 10 mg PO DAILY@199903/27/20 03/10/25 03/09/25 20:00 History divalproex 250 mg tablet,extended See Rx Instructions .Route .COMPLEX 11/26/22 03/10/25 03/10/25 07:00 History release 24 hr (Depakote ER) diclofenac sodium 1 % topical gel 2 g topical QID 30 d ays #100 grams 03/07/25 03/10/25 Unknown Rx (Voltaren Arthritis Pain) acetaminophen 500 mg tablet 1,000 mg PO QID PRN Headac he 03/10/25 03/10/25 Unknown History (Tylenol Extra Strength) lisinopril 10 mg tablet 10 mg PO DAILY 03/10/25 08/03/2703/10/25 History Allergies Allergy/AdvReac Type Severity Reaction Status Date / Time codeine Allergy RASH Verified 07/23/23 08:41 morphine Allergy RASH Verified 07/23/23 08:41 PFSH Acute 2 PFSH: Medical History (Updated 03/10/25 @ 18:34 by José Quintanilla MD) Renal cell carcinoma History of nephrectomy, unilateral Single kidney History of prostate cancer History of bladder cancer Surgical History (Updated 03/10/25 @ 18:34 by José Quintanilla MD) H/O splenectomy History of prostatectomy History of urostomy Social History Smoking and tobacco/nicotine status: never used tobacco/nicotine Alcohol intake: never Substance/Drug Use: never Vitals/I&O/Wt Last Vital Signs Temp 98.3 F 03/10/25 11:01 Pulse 62 03/10/25 17:30 Resp 23 H 03/10/25 17:30 BP 144/87 03/10/25 17:30 Pulse Ox 97 03/10/25 17:30 O2 Del Method Room Air 03/10/25 11:01 Weight last 48 hrs Weight 108.862 kg Physical Exam 2 Narrative: General: No acute distress, AO x3, urostomy in place HEENT: PERRLA, pupils bilaterally equal and reactive Chest: Normal vesicular breath sounds, no added sounds, equal good air entry bilaterally CVS: S1-S2 regular, no murmurs, no tachycardia, no gallops, no rubs Abdomen: Soft, nontender, no organomegaly, bowel sounds present Neuro: No focal deficits, no facial deformity, AO x3, power 5/5 in all limbs Data 03/10/25 10:45 03/10/25 10:45 A&P Assessment and plan 1. Primary hypertension: 2. Dyspnea on exertion: 3. Single kidney: 4. Unstable angina: Plan: 75-year-old gentleman with past medical history of hypertension presents to the ER today with symptoms concerning for dyspnea on exertion. Dyspnea on exertion: Appreciate CTA chest. No concerns for PE, consolidation PE could be in setting of COPD. Given history of chemotherapy in the past. Cannot rule out CHF. Cannot rule out unstable angina. Troponin cycled. Echocardiogram results. Currently euvolemic. Cardiology consulted. Plan for cardiac catheter in AM. Continue aspirin 81 mg daily. Check A1c, lipid panel. Pulmicort BID, Duoneb Q6h Goal blood pressure less than 140/90 mmHg. Continue home dose of lisinopril for now. Uptitrate as per goal blood pressure. History of single kidney: Monitor renal functions. Start on normal saline at 50 cc/h. Full code Cardiac diet Lovenox for DVT prophylaxis Protonix for PUD prophylaxis PDMP PDMP Reviewed: Not Reviewed Attestations 2 Medical Necessity Statement*: Admit under observation for evaluation and management dyspnea on exertion with concern for unstable angina requiring further workup for ACS. Diagnoses Primary hypertension I10 Dyspnea on exertion R06.09 Single kidney Z90.5 Unstable angina I20.0
[2025-03-10 19:22] LABS: Lactic Sepsis W/Reflex 1.9 mmol/L (0.5-2.2)
[2025-03-10 19:27] LABS: Procalcitonin 0.09 ng/mL (0-0.5)
[2025-03-10 19:41] LABS: Iron 94 ug/dL (59-158); Thyroid Stimulating Hormone 1.00 uIU/mL (0.27-4.20); Total Iron Binding Capacity 255 mcg/dl; Unsaturated Iron Binding 161 ug/dL (112-347)
[2025-03-10] MEDS: divalproex ER 250 mg Tablet (24H) 500 MG PO (20:12)
[2025-03-10 20:39] LABS: Vitamin B12 361 pg/mL (232-1245)
[2025-03-10 21:51] LABS: Estmated Average Glucose 128; Hemoglobin A1C 6.1 % (4.0-6.0)
[2025-03-11] VITALS (7 sets, daily range): BP systolic 109–136; BP diastolic 65–88; PULSE 57–67; RESP 14–28; TEMP 36.5–36.9; O2SAT 93–98
[2025-03-11 02:52] LABS: Hematocrit 42.4 % (37-53); Hemoglobin 14.30 g/dL (11.27-16.99); Mean Corpuscular HGB Conc 33.7 g/dL (30-55); Mean Corpuscular Hemoglobin 30.9 pg (27-33); Mean Corpuscular Volume 91.6 fl (82-101); Nucleated Red Blood Cells % 0 %; Platelet Count 348 10^3/cmm (157-399); Red Blood Count 4.63 10^6/uL (3.85-5.65); White Blood Count 8.62 10^3/uL (3.29-11.43)
[2025-03-11 03:15] LABS: Alanine Aminotransferase 19 U/L (0-41); Albumin Level 3.3 g/dL (3.5-5.2); Alkaline Phosphatase 106 U/L (40-130); Anion Gap 15.9 (5-19); Aspartate Amino Transferase 22 U/L (0-40); Blood Urea Nitrogen 22 mg/dL (8-23); Calcium 8.8 mg/dL (8.5-10.5); Carbon Dioxide 26 mmol/L (22-29); Chloride 105 mmol/L (98-107); Cholesterol 132 mg/dL (0-200); Creatinine Clr Calc Pharmacy 70.5519; Globulin 3.6 g/dL (1.3-4.6); Glucose 134 mg/dL (65-115); HDL Cholesterol 27 mg/dL (60-100); Magnesium 1.7 mg/dL (1.7-2.3); Osmolality Calculated 301 mOsm/kg (285-295); Potassium 3.9 mmol/L (3.5-5.1); Sodium 143 mmol/L (136-145); Total Protein 6.9 g/dL (6.6-8.7); Triglycerides 337 mg/dL (0-150)
[2025-03-11 03:18] LABS: Procalcitonin 0.07 ng/mL (0-0.5)
[2025-03-11] MEDS: divalproex ER 250 mg Tablet (24H) PO (06:11)
--- NOTE | 2025-03-11 08:09 | XACV_ITS ---
Exam Room: [facility] Ht: 175 cm Wt: 111 kg BSA: 2.37 m2 Gender: Male : 1950 Any Known Allergies: Morphine Exam Priority: Routine Procedure(s): Procedure Description: Diagnostic procedure Procedure Description: Left Heart Catheterization Procedure Description: Left ventriculography Procedure Description: Coronary Angiography Oracio HART; Diagnostic Cath Status: Elective Diagnostic Findings * No disease noted in the Left Main, Left Anterior Descending, Right, or Circumflex coronary arteries. * 1st Diagonal: mild 40% stenosis, WAYNE: 3 flow. * Coronary angiography shows right dominance. * Large-caliber aneurysmal vessel with sluggish flow especially in the LAD, endothelial dysfunction.. Conclusions 1. No disease noted in the Left Main, Left Anterior Descending, Right, or Circumflex coronary arteries. 2. All betts are normal. 3. Hyperdynamic left ventricular systolic function. Ejection fraction of 75%. Recommendations * 1-Return to inpatient for close monitoring and routine cath care 2-Risk factor modification for secondary prevention 3-Statin and aspirin 81 mg life-long, if tolerated 4-Add isosorbide mononitrate 5-Continue optimal medical management 6-Follow up with Dr. Narayanan in four weeks and your primary care in as scheduled . Diagnostic RX Recommendation: medical therapy and/or counseling LV EDP: 15 mmHg Ventriculography Ejection Fraction: 75.0 % Pressures Phase:Rest AO : 123 / 72 ( 92 ) @ 11:15:00 AM 130 / 72 ( 98 ) @ 11:24:00 AM 128 / 71 ( 96 ) @ 11:24:00 AM LV : 126 / -3 / 15 @ 11:22:00 AM 135 / -5 / 14 @ 11:23:00 AM 133 / -7 / 13 @ 11:24:00 AM Valves Phase:DefaultPhase AV : 3.0 @ 10:35:12 AM AV Mean Gradient: 12.0 @ 10:35:12 AM Clinical Evaluation EBL: 5mL-10mL Procedural Details Procedure Consent Obtained. Admit Source: In Patient. Pre-Procedure Time Out. Identified patient by full name and date of as verbalized by the patient/guarantor. Does the consent match the physician's order: Yes. Accurate & Complete Informed Consent: Yes. If H&P is completed, is and addenduem needed: No; If yes, is the addendum complete: N/A. Inpatient/Outpatient History & Physical on Chart: Yes. Visualize and Verify Site with Patient/Guarantor: N/A. Relevant Radiology Images available: Yes. The risks, benefits, and alternatives of sedation and/or procedure were discussed by physician. The patient agrees to continue. Procedure started. [facility] Clinical Fraility Score: 3: Managing Well. Wagon Washer Indications: Worsening Angina. Chest Pain Symptom Assessment: Typical Angina Symptoms. Correct patient, site and procedure confirmed by cath team. Current diagnosis: Unstable angina. PERRLA. Strong, equal hand returner bilaterally. Lungs clear x 5 lobes. IV Site on Arrival: 18 gauge in the right anticubital. IV Fluids: 0.9% NaCl at 75ml/hr. 100 mL infused prior to labor standards director. Pre Procedural Pulses: bilateral radial was 1+. Pre Procedural Pulses: bilateral dorsalis pedis was Doppled. Pre Procedural Pulses: bilateral posterior tibial was Doppled. Oxygen started at 2liters/min via nasal canula. right radial was prepped with chloroprep then draped in the usual sterile fashion. right groin was prepped with chloroprep then draped in the usual sterile fashion. Physician notified. Baseline sample Acquired. HR: 67 BPM. Physician arrived. Physician scrubbed in. Immediate Pre-Procedure Time Out. Correct Patient: Yes; Correct Procedure: Yes; Correct Site: Yes; Correct Patient Position: Yes; Correct Supplies: Yes; Dried Flammable Prep: Yes; Blood Products Available: Yes;. Lidocaine 1% infiltrated to the right radial. Arterial access obtained. A 5 gabonese John catheter in over wire. Multiple views taken of left coronary artery. Catheter redirected to the RCA. Multiple views taken of right coronary artery. Catheter removed over the exchange wire. A 5 gabonese Angled Pig catheter in over wire. Wire out. EDP Sample taken: LV 126/-4,15; HR: 57 BPM; SpO2: 97%. LV gram performed in [place] @ 10 mL/second for a total of 30 mL. EDP Sample taken: LV 135/-6,14; HR: 67 BPM; SpO2: 97%. Pullback taken: LV 133/-8,13; AO 130/72(98); Mean: 12mmHg, Peak to Peak: 3mmHg, SEP: 6sec/min; HR: 63 BPM; SpO2: 98%. Catheter removed over the exchange wire. Physician scrubbed out. A TR Band was successful obtaining hemostatsis at the Right Radial artery insertion site. Post Procedure: Pulses reassessed and unchanged. PERRLA. Strong, equal hand returner bilaterally. No VTE prophylaxis required. Medication's Wasted: Lidocaine 1% = 17 mL. Medication's Wasted: Nitro = 49.8 mg. Medication's Wasted: Heparin = 1000 units. Medication's Wasted: Other = Fentanyl 100mcg, Versed 2 mg. Total IV fluids: 45 mL. Post-op diagnosis: Non-obstruction CAD, 40% Diagonal stenosis. Endothelial Dysfunction. Complications: None. Estimated blood loss: 5mL-10mL. Responsiveness - Normal response to verbal stimuli; alert and oriented, PERRLA. Airway - Unaffected, no intervention required; spontaneous ventilation. Circulation: W/N/L, pulses unchanged. Nausea/Vomiting: No. Procedure completed. Patient transferred by bed to 1st floor. Vital chart was stopped. Access Site Site: Right Radial artery Sheath Size: 6 Fr Hemostasis Method: TR Band Hemostasis Success: Successful Procedure Medications Start: 9:59 AM Stop: 9:59 AM Medication: Versed Amount: 1 mg Route: I.V. Start: 9:59 AM Stop: 9:59 AM Medication: Fentanyl Amount: 50 mcg Route: I.V. Start: 10:05 AM Stop: 10:05 AM Medication: Fentanyl Amount: 25 mcg Route: I.V. Start: 10:08 AM Stop: 10:08 AM Medication: Versed Amount: 1 mg Route: I.V. Start: 10:10 AM Stop: 10:10 AM Medication: Fentanyl Amount: 25 mcg Route: I.V. Start: 10:13 AM Stop: 10:13 AM Medication: Nitrogylcerin Amount: 200 mcg Route: I.A. Start: 10:14 AM Stop: 10:14 AM Medication: Heparin Amount: 5000 units Route: I.V. I, the attending physician, have reviewed and verified all procedure medications. Yes, all medications given per verbal order History/Risk Factors Hypertension: Yes Dyslipidemia: No Peripheral Arterial Disease (PAD): No Myocardial Infarction (MT): No Obesity: No Renal Disease: No Tobacco Use: Never Prior Interventions PCI: No CABG: No Valve Surgery: No Report Signatures Finalized by Kurt Narayanan MD on 03/11/2025 10:47 AM
[2025-03-11 09:10] LABS: Glucose Urine UA Negative (Normal); Nitrate Urine Positive (Negative); Specific Gravity, Urine 1.015 (1.005-1.030)
[2025-03-11 09:13] LABS: Add Urine Microscopic? YES; Universal Test for UA Present (0)
--- NOTE | 2025-03-11 09:53 | W.PM.OPSUD ---
Surgery/Procedure H&P Update DATE OF PROCEDURE: March 11, 2025 DATE H&P PERFORMED: 03/10/25 H&P UPDATE INFORMATION: I have reviewed H&P completed within last 30 days, I have examined patient prior to procedure and No changes to prior documentation PREOP DIAGNOSIS: Chest pain suspicious for unstable angina PRIMARY INDICATION FOR PROCEDURE: Left heart cath/PCI if indicated PLANNED PROCEDURE: Operation Date: 03/11/25 09:00 Proposed Procedures p Cardiac Catheterization(Left) - Kurt Narayanan MD PATIENT REASSESSED PRIOR TO SEDATION, WITH NO CHANGE NOTED: Yes PHYSICAL EXAM: alert, oriented x 3, clear to auscultation bilaterally, regular rate & rhythm and operative site marked AIRWAY EVAL/ANESTHESIA PLAN: ASA II, Risks, benefits & alternatives of sedation and/or procedure discussed and Patient agrees to continue as planned ADDITIONAL INFORMATION: Patient has been explained all risk-benefit and alternative for the procedure. Patient understood 2% risk of stroke major bleed. Patient understand 5% risk of urgent emergent vascular/cardiac surgery, contrast-induced nephropathy leading to temporary or permanent dialysis, patient agrees to it and would like to proceed with it.
--- NOTE | 2025-03-11 11:06 | P.PN_ITS ---
Subjective 2 Subjective: Denies any chest pain underwent left heart catheterization today noted to have nonobstructive coronary artery disease and endothelial dysfunction Vitals/I&O/Wt Last Vital Signs Temp 97.7 F 03/11/25 10:40 Pulse 61 03/11/25 10:40 Resp 20 H 03/11/25 10:40 BP 136/85 03/11/25 10:40 Pulse Ox 97 03/11/25 10:40 O2 Del Method Room Air 03/11/25 10:40 03/10/25 03/11/25 03/11/25 22:59 06:59 14:59 Intake Total 600 / 600 Output Total 300 / 300 450 / 750 Balance 300 / 300 -450 / -150 Weight last 48 hrs Weight 245 lb 4.8 oz Weight 242 lb Weight 240 lb Weight 240 lb Physical Exam 2 Const: COMMON NORMALS: alert HENMT: OTHER: GENERAL: Patient is alert, awake and oriented x3. HEART: Regular S1 and S2. No murmur, rub or gallop. LUNGS: Clear to auscultate bilaterally. CENTRAL NERVOUS SYSTEM: Grossly nonfocal. EXTREMITIES: Lower extremities with out edema bilaterally. Resp: COMMON NORMALS: clear to auscultation bilaterally AUSCULTATION: clear to auscultation bilaterally Neuro: SENSORIUM/ORIENTATION: Yes alert Data 03/11/25 02:31 03/11/25 02:31 A&P Assessment and plan 1. Unstable angina: Patient underwent left heart catheterization noted to have nonobstructive coronary artery disease, patient had ectatic aneurysmal vessels with endothelial dysfunction and sluggish flow especially in the LAD while first diagonal branch was 40% stenotic at the ostium. 2. Primary hypertension: Plan: Patient had nonobstructive coronary artery disease with endothelial dysfunction therefore recommend starting patient on statin high intensity, add isosorbide mononitrate, low-dose beta-gay metoprolol succinate 12.5 mg if patient is not bradycardic or heart rate not less than 60 bpm most of the time Follow-up with cardiology in 1 month PDMP PDMP Reviewed: Not Reviewed Attestations 2 Medical Necessity Statement*: From a cardiovascular perspective patient can be discharged home today after completing bedrest 4 to 5 hours Coding Level of Care Code Acute Code for [facility] Fwd Diagnoses Unstable angina I20.0 Primary hypertension I10
--- NOTE | 2025-03-11 12:23 | P.DS_ITS ---
Discharge Providers Date of Admission: 03/10/25 16:43 Date of Discharge: March 11, 2025 Attending Provider at Admission: José Quintanilla MD Attending Provider at Discharge: José Quintanilla MD Consults: Cardiology: Dr. Narayanan Primary Care Provider: Mirza Cottrell Diagnoses at Discharge Discharge Diagnosis 1. Unstable angina: 2. Primary hypertension: Reason for Visit Reason for Visit: chest pain Hospital Course Hospital Course Joseph Norman is a 75 year old male with past medical history of hypertension, prostate cancer, bladder cancer, single kidney, renal cancer status post nephrectomy, cholecystectomy, splenectomy presents to the ER today because of worsening difficulty in breathing on exertion for last 1 month. Symptoms have been progressively getting worse and for last 1 week he has been complaining of chest pressure both at rest worsening on exertion. Shortness of breath does not get worse on laying down flat. Patient was admitted to the hospital further evaluation management. CTA done on admission was negative for PE, consolidation. Given his concern for unstable angina cardiology was consulted. He underwent cardiac echogram and angiogram on 03/11. 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 Echocardiogram was done which showed normal EF of 60% with grade 1 diastolic dysfunction. His hospital stay was unremarkable. He has been discharged back home in hemodynamically stable condition on adjusted medications. He is to follow-up with primary care provider within the next 1 week and cardiology team in 1 month. He is to maintain his oral hydration with up to 50 to 60 ounces of liquid daily. He was found to have elevated A1c for which he was prescribed in detail about lifestyle modification Physical Exam Narrative: General: No acute distress, AO x3, urostomy in place HEENT: PERRLA, pupils bilaterally equal and reactive Chest: Normal vesicular breath sounds, no added sounds, equal good air entry bilaterally CVS: S1-S2 regular, no murmurs, no tachycardia, no gallops, no rubs Abdomen: Soft, nontender, no organomegaly, bowel sounds present Neuro: No focal deficits, no facial deformity, AO x3, power 5/5 in all limbs Discharge Data Studies Completed and Pending Completed Studies During Hospitalization Category Date Time Status CT angio chest PE protcl [id number] Stat Cat Scan 03/10/25 12:09 Completed [employer] 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 echo complete* [id number] Routine Ultrasound 03/11/25 17:02 Completed Pending at discharge Category Date Time Status Complete Blood Count w/Auto AM LABS Lab 03/12/25 04:00 Ordered Comprehensive Metabolic Panel AM LABS Lab 03/12/25 04:00 Ordered Comprehensive Metabolic Panel AM LABS Lab 03/13/25 04:00 Ordered Magnesium AM LABS Lab 03/12/25 04:00 Ordered Magnesium AM LABS Lab 03/13/25 04:00 Ordered Phosphorus AM LABS Lab 03/12/25 04:00 Ordered Phosphorus AM LABS Lab 03/13/25 04:00 Ordered Urine Culture Routine Lab 03/11/25 08:09 Received Radiology Impressions Chest X-Ray 03/10/25 11:06 IMPRESSION: Stable chest without acute abnormality. Chest CTA 03/10/25 12:09 IMPRESSION: 1. No pulmonary embolism. 2. Poor inspiratory effort. Crowding of the lung markings and dependent changes at the lung bases. Subsegmental atelectasis at the RIGHT lung base. 3. No pericardial or pleural effusions. 4. No adenopathy. 5. Hepatic steatosis. Echocardiogram CONCLUSIONS Normal left ventricular size, systolic function and wall thickness, with no regional wall motion abnormalities. Left ventricular ejection fraction is estimated at 60 %. Grade I/IV diastolic dysfunction (abnormal relaxation filling pattern), normal to mildly elevated filling pressures. There is no pericardial effusion. No significant valve abnormalities. Right atrial pressure is around 5 mm of mercury. Kurt Narayanan MD (Electronically Signed) Final Date: 11 March 2025 Customer Service Manager procedure: iagnostic Findings * No disease noted in the Left Main, Left Anterior Descending, Right, or Circumflex coronary arteries. * 1st Diagonal: mild 40% stenosis, WAYNE: 3 flow. * Coronary angiography shows right dominance. * Large-caliber aneurysmal vessel with sluggish flow especially in the LAD, endothelial dysfunction.. Conclusions 1. No disease noted in the Left Main, Left Anterior Descending, Right, or Circumflex coronary arteries. 2. All betts are normal. 3. Hyperdynamic left ventricular systolic function. Ejection fraction of 75%. Recommendations * 1-Return to inpatient for close monitoring and routine cath care 2-Risk factor modification for secondary prevention 3-Statin and aspirin 81 mg life-long, if tolerated 4-Add isosorbide mononitrate 5-Continue optimal medical management 6-Follow up with Dr. Narayanan in four weeks and your primary care in as scheduled . Laboratory Results WBC 8.62 10^3/uL (3.29-11.43) 03/11/25 02:31 RBC 4.63 10^6/uL (3.85-5.65) 03/11/25 02:31 Hgb 14.30 g/dL (11.27-16.99) 03/11/25 02:31 Hct 42.4 % (37-53) 03/11/25 02:31 MCV 91.6 fl (82-101) 03/11/25 02:31 MCH 30.9 pg (27-33) 03/11/25 02:31 MCHC 33.7 g/dL (30-55) 03/11/25 02:31 RDW 14.5 % (12.1-15.1) 03/11/25 02:31 Plt Count 348 10^3/cmm (157-399) 03/11/25 02:31 MPV 9.2 fL (7.4-10.4) 03/11/25 02:31 Neut % (Auto) 46.0 % 03/11/25 02:31 Lymph % (Auto) 32.7 % 03/11/25 02:31 Lewis % (Auto) 16.1 % 03/11/25 02:31 Eos % (Auto) 4.4 % 03/11/25 02:31 Baso % (Auto) 0.6 % 03/11/25 02:31 Neut # (Auto) 3.96 10^3/uL (1.8-7.7) 03/11/25 02:31 Lymph # (Auto) 2.8 10^3/uL (0.8-4.8) 03/11/25 02:31 Lewis # (Auto) 1.4 10^3/uL (0.2-0.9) H 03/11/25 02:31 Eos # (Auto) 0.4 10^3/uL (0.0-0.8) 03/11/25 02:31 Baso # (Auto) 0.1 10^3/uL (0.0-0.1) 03/11/25 02:31 Nucleated RBC % (auto) 0 % 03/11/25 02:31 Nucleated RBCs # 0.0 /100WBC 03/11/25 02:31 Sodium 143 mmol/L (136-145) 03/11/25 02:31 Potassium 3.9 mmol/L (3.5-5.1) 03/11/25 02:31 Chloride 105 mmol/L (98-107) 03/11/25 02:31 Carbon Dioxide 26 mmol/L (22-29) 03/11/25 02:31 Anion Gap 15.9 (5-19) 03/11/25 02:31 BUN 22 mg/dL (8-23) 03/11/25 02:31 Creatinine 1.1 mg/dL (0.7-1.2) 03/11/25 02:31 GFR Calculation Not Reportable 03/11/25 02:31 Glucose 134 mg/dL (65-115) H 03/11/25 02:31 Estimat Average Glucose 128 03/10/25 10:45 Hemoglobin A1c 6.1 % (4.0-6.0) H 03/10/25 10:45 Calculated Osmolality 301 mOsm/kg (285-295) H 03/11/25 02:31 Lactic Acid 1.9 mmol/L (0.5-2.2) 03/10/25 18:48 Calcium 8.8 mg/dL (8.5-10.5) 03/11/25 02:31 Phosphorus 3.4 mg/dL (2.5-4.5) 03/11/25 02:31 Magnesium 1.7 mg/dL (1.7-2.3) 03/11/25 02:31 Iron 94 ug/dL (59-158) 03/10/25 10:45 TIBC 255 mcg/dl 03/10/25 10:45 % Saturation 36.8 % (20-50) 03/10/25 10:45 Unsat Iron Binding 161 ug/dL (112-347) 03/10/25 10:45 Total Bilirubin 0.3 mg/dL (0.15-1.2) 03/11/25 02:31 AST 22 U/L (0-40) 03/11/25 02:31 ALT 19 U/L (0-41) 03/11/25 02:31 Alkaline Phosphatase 106 U/L (40-130) 03/11/25 02:31 Troponin T Baseline 24 ng/L (0-15) H 03/10/25 10:45 Troponin T 120 Minute 19.93 ng/L (0-15) H 03/10/25 12:37 Delta Troponin T -4.07 ABS# (0-10) L 03/10/25 12:37 Troponin T Hi Sens 6Hr 24.87 ng/L (0-15) H 03/10/25 16:24 Troponin T Hi Sens 6Hr Delta 0.87 ng/L (0-12) 03/10/25 16:24 Total Protein 6.9 g/dL (6.6-8.7) 03/11/25 02:31 Albumin 3.3 g/dL (3.5-5.2) L 03/11/25 02:31 Globulin 3.6 g/dL (1.3-4.6) 03/11/25 02:31 Triglycerides 337 mg/dL (0-150) H 03/11/25 02:31 Cholesterol 132 mg/dL (0-200) 03/11/25 02:31 LDL Cholesterol, Calc 38 mg/dL (50-129) L 03/11/25 02:31 HDL Cholesterol 27 mg/dL (60-100) L 03/11/25 02:31 LDL/HDL Ratio 1.41 RATIO (0.00-3.22) 03/11/25 02:31 Cholesterol/HDL Ratio 4.89 mg/dL (1.0-5.00) 03/11/25 02:31 Vitamin B12 361 pg/mL (232-1245) 03/10/25 10:45 Folate 10.9 ng/mL (4.5-32.2) 03/11/25 02:31 Procalcitonin 0.07 ng/mL (0-0.5) 03/11/25 02:31 TSH 1.00 uIU/mL (0.27-4.20) 03/10/25 10:45 Urine Color Arnett (Yellow) A 03/11/25 08: Urine Appearance Turbid (CLEAR) A 03/11/25 08: Urine pH 5.5 (5-7) 03/11/25 08:09 Ur Specific Vona 1.015 (1.005-1.030) 03/11/25 08:09 Urine Protein 1+ (Negative) A 03/11/25 08:09 Urine Glucose (UA) Negative (Normal) 03/11/25 08:09 Urine Ketones Negative (Negative) 03/11/25 08:09 Urine Blood Non-haemolysed trace (Negative) 03/11/25 08:09 Urine Nitrate Positive (Negative) A 03/11/25 08:09 Urine Bilirubin Negative (Negative) 03/11/25 08:09 Urine Urobilinogen 0.2 mg/dL (Negative) 03/11/25 08:09 Ur Leukocyte Esterase 1+ (Negative) A 03/11/25 08:09 Urine RBC 0-2 /hpf (0-2) 03/11/25 08:09 Urine WBC 21-50 /hpf (0-5) H 03/11/25 08:09 Ur Squamous Epith Cells 0-5 /hpf (0-5) 03/11/25 08:09 Amorphous Sediment Not Reportable 03/11/25 08:09 Urine Bacteria 4+ /hpf (NONE) H 03/11/25 08:09 Hyaline Casts 5.77 /lpf 03/11/25 08:09 Vitals Last Vital Signs Temp 97.7 F 03/11/25 10:40 Pulse 65 03/11/25 12:13 Resp 18 03/11/25 12:13 BP 112/65 03/11/25 12:13 Pulse Ox 98 03/11/25 12:13 O2 Del Method Room Air 03/11/25 10:40 Discharge Plan Discharge Patient Disposition: Home Condition: Stable Prescriptions: Continued cetirizine 10 mg tablet 5 mg PO DAILY PRN (Reason: Allergy Symptoms) montelukast 10 mg tablet 10 mg PO DAILY@1999 atorvastatin 40 mg tablet 40 mg PO DAILY@1999 diclofenac sodium [Voltaren Arthritis Pain] 1 % gel 2 g topical QID 30 Days Qty: 100 5RF Rx Instructions: apply to single elbow, wrist or hand; for hand includes palm/fingers/back of hand divalproex [Depakote ER] 250 mg Tablet Extended Release 24 Hr See Rx Instructions .ROUTE .COMPLEX Rx Instructions: take 1 tablet in the am and 2 tablets and bedtime lisinopril 10 mg Tablet 10 mg PO DAILY acetaminophen [Tylenol Extra Strength] 500 mg Tablet 1,000 mg PO QID PRN (Reason: Headache) Discharge Order = DC NOW: Discharge Order (Routine); Ordered 03/11/25 Ordered By: José Quintanilla Other Ambulatory Orders: Pulmonary Function Screen with Bronchodilator (Routine) Timeframe: 1 Week Facility: [facility] - Location: Respiratory Therapy Ordered By: José Quintanilla Referrals: Elaina Shine FNP [Nurse Practitioner, Cardiology] - 1 month Mirza Cottrell [Primary Care Provider, Clinic Visit] - 7-10 days Discharge Diet: Cardiac and Diabetic Discharge Activity: Resume usual activity and Increase activity as tolerated Patient Instructions: Opioid Safety, Pain Management, Patient Portal & Clay Instructions Activity Restrictions/Additional Instructions: Please continue with lifestyle modification for diabetes. Recheck A1c in 6 months. Please follow-up with your primary care provider within next 1 week, cardiology team in next 1 month. Please check your blood pressure daily at home maintain a blood pressure diary. Goal blood pressure is between 100-140 systolic. Discharge Attestations Time Spent in Discharge Care*: greater than 30 min Specific Discharge Activities: educating patient, educating and/or supporting family/caregiver, discussing with pcp/other providers, discussing with correctional case manager/social workers/dc planners, documenting/other paperwork and evaluating patient/reviewing data Status at Discharge: Cognitive status at discharge: cognitively intact , Behavioral status at discharge: cooperative , Functional status at discharge: independent ambulation , Overall status at discharge: patient is back to baseline Quality Metrics Clinical Quality Measures [ No reported AMI, CVA or VTE this stay] Coding Level of Care Code 82768 Total time (in minutes) for Discharge: 65 Diagnoses Unstable angina I20.0 Primary hypertension I10
--- NOTE | 2025-03-11 12:58 | PC.NURSE ---
patient arrived back on the floor from environmental laboratory technician at 1055 with TR band on right radial. No hematoma noted. TR band removed at 1255, with no hematoma formation. Patient instructed he needs to get up and walk around prior to leaving. Patient verbalized understanding.
--- NOTE | 2025-03-11 17:02 | USCV_ITS ---
Joseph Norman Age: 75 Gender: M : 1950 Exam Date: 03/11/2025 06:59 Ordering Phys: Lynette Cabral NP Technologist: Chau Luis Exam Location: [facility] [place] Indication: chest pain BP: 129 / 88 HR: 62 Rhythm: Sinus Technical Quality: Adequate MEASUREMENTS (Male / Female) Normal Values 2D ECHO LV Diastolic Diameter PLAX 4.4 cm 4.2 - 5.9 / 3.9 - 5.3 cm IVS Diastolic Thickness 1.1 cm 0.6 - 1.0 / 0.6 - 0.9 cm IVS Systolic Thickness 1.6 cm LVPW Diastolic Thickness 1.4 cm 0.6 - 1.0 / 0.6 - 0.9 cm LVPW Systolic Thickness 1.7 cm LVOT Diameter 2.1 cm LV Ejection Fraction 2D Teich 60.5 % LV Ejection Fraction MOD 4C 72.2 % LV Ejection Fraction MOD 2C 71.6 % LV Ejection Fraction 2C AL 71.2 % LA Diameter 3.5 cm RA Systolic Volume 4C AL 31.6 ml RA Systolic Volume 4C MOD 29.1 ml LA Sys Volume AL 30.8 cm cubed LA Sys Volume Index AL 13.0 cm cubed/m squared Aorta at Sinotubular Diameter 2.6 cm M-MODE LA Ao Ratio MM 1.4 AV Cusp Separation MM 1.8 cm DOPPLER AV Peak Velocity 135.0 cm/s LVOT Peak Velocity 110.0 cm/s AV Area Cont Eq vti 2.5 cm squared AV Area Cont Eq pk 2.8 cm squared MV Peak Velocity 83.0 cm/s MV Area PHT 6.8 cm squared Mitral E to A Ratio 1.0 TV Peak Velocity 264.7 cm/s TR Peak Velocity 269.0 cm/s TR Peak Gradient 28.9 mmHg TR Mean Velocity 221.0 cm/s TR Mean Gradient 20.4 mmHg TR Velocity Time Integral 77.5 cm PV Peak Velocity 72.0 cm/s RV Ejection Time 0.3 s FINDINGS Left Ventricle Normal left ventricular size, systolic function and wall thickness, with no regional wall motion abnormalities. Left ventricular ejection fraction is estimated at 60 %. Grade I/IV diastolic dysfunction (abnormal relaxation filling pattern), normal to mildly elevated filling pressures. Right Ventricle The right ventricle is normal in size and function. Right Atrium The right atrium is normal in size. Left Atrium The left atrium is normal in size. Mitral Valve Structurally normal mitral valve without significant stenosis or prolapse. There is no mitral regurgitation. Aortic Valve Mild aortic valve calcification. No aortic valve stenosis. Trace aortic valve regurgitation. Tricuspid Valve Structurally normal tricuspid valve without significant stenosis or regurgitation. Pulmonary artery systolic pressure is normal. Pulmonic Valve Structurally normal pulmonic valve without significant stenosis. There is no pulmonic regurgitation. Pericardium Normal pericardium without effusion. Aorta Normal ascending aorta dimension. IVC The inferior vena cava appears normal. CONCLUSIONS Normal left ventricular size, systolic function and wall thickness, with no regional wall motion abnormalities. Left ventricular ejection fraction is estimated at 60 %. Grade I/IV diastolic dysfunction (abnormal relaxation filling pattern), normal to mildly elevated filling pressures. There is no pericardial effusion. No significant valve abnormalities. Right atrial pressure is around 5 mm of mercury. Kurt Narayanan MD (Electronically Signed) Final Date: 11 March 2025 10:51 S
== END 2025-03-11 15:12 | disposition home or self-care (01) ==
LOC: ER 16:35 → CSU 16:43
PROVIDERS: Internal Medicine Cardiovascular Disease; Nurse Practitioner Family; Admitting Provider Student in an Organized Health Care Education/Training Program; Emergency Provider Family Medicine; PCP Family Medicine; Visit Provider Student in an Organized Health Care Education/Training Program
DX: B34.1 Enterovirus infection, unspecified (principal); I25.118 Atherosclerotic heart disease of native coronary artery with other forms of angina pectoris; I10 Essential (primary) hypertension; Z85.46 Personal history of malignant neoplasm of prostate; Z85.51 Personal history of malignant neoplasm of bladder; Z85.528 Personal history of other malignant neoplasm of kidney; Z90.5 Acquired absence of kidney; Z90.49 Acquired absence of other specified parts of digestive tract; Z90.81 Acquired absence of spleen; E66.9 Obesity, unspecified; Z68.36 Body mass index [BMI] 36.0-36.9, adult; E78.5 Hyperlipidemia, unspecified; G47.33 Obstructive sleep apnea (adult) (pediatric); Z99.89 Dependence on other enabling machines and devices
CPT/HCPCS: 36415; 71045; 71275; 80053; 80061; 81001; 82607; 82746; 83036; 83540; 83550; 83605; 83735; 84100; 84145; 84443; 84484; 85025; 87077; 87086; 87186; 93005; 93306; 93458; 96372; 99152; 99153; 99285; C1769; C1887; C1894; G0378; J1644; J1650; J2250; J3010; J3490; J7030; J9999; Q0163; Q9967

== ENCOUNTER → 2025-03-21 14:05 | Outpatient (BNVA) | payer OTHER, SELFPAY | PROVIDERS: PCP Family Medicine; Visit Provider Nurse Practitioner Family | DX: I20.89 Other forms of angina pectoris (principal); I10 Essential (primary) hypertension; Z79.82 Long term (current) use of aspirin | CPT/HCPCS: 36415; 80053; 85025; 99213 ==

== ENCOUNTER 2025-06-05 19:49 | Outpatient (CLI) | payer OTHER, SELFPAY | END 2025-06-05 19:50 | disposition home or self-care (01) | LOC: SLEEP 19:50 | PROVIDERS: PCP Family Medicine; Referring Provider Family Medicine; Visit Provider Internal Medicine Pulmonary Disease | DX: G47.33 Obstructive sleep apnea (adult) (pediatric) (principal) | CPT/HCPCS: 95810 ==